=== PATIENT | female | born 1975 | race Caucasian/White ===

== ENCOUNTER 2016-10-20 19:10 | Inpatient (IN) ==
[2016-10-20] MEDS ORDERED: NS 1,000 ML IV ONE (19:18)
--- OUTSIDE RECORDS SUMMARY | 2016-10-20 19:20 | External Medical Summary ---
:1975 [facility] Care Team Providers Name Role Phone Em Camargo Provider Role Unavailable Allergies, Adverse Reactions, Alerts Substance Reaction Event Type morphine Info Not Available Drug Allergy aspirin Info Not Available Drug Allergy codeine Info Not Available Drug Allergy Tegretol Info Not Available Drug Allergy strawberries Info Not Available Non Drug Allergy green mlechor, nutrasweet, peanut, shell fish Info Not Available Non Drug Allergy Problems Problem Type Condition Code Onset Dates Condition Status Assessment Nonintractable migraine, G43.009 Active unspecified migraine type Assessment Pain in left knee M25.562 Active Assessment Osteoarthritis, unspecified M19.90 Active osteoarthritis type, unspecified site Assessment Hypertension I10 Active Assessment Visual impairment in both eyes H54.3 Active Assessment Dysphagia R13.10 Active Assessment Cervicalgia M54.2 Active Assessment S/P cervical spinal fusion Z98.1 Active Problem History of fall Z91.81 Active Assessment Cervical spinal stenosis M48.02 Active Problem Lethargy R53.83 Active Assessment History of fall Z91.81 Active Problem Type 2 diabetes mellitus with E11.65 Active hyperglycemia Problem Menses, irregular N92.6 Active Problem Hypertension I10 Active Problem Chronic pain syndrome G89.4 Active Problem Bipolar disorder, current episode F31.5 Active depressed, severe, with psychotic features Assessment Chronic pain syndrome G89.4 Active Assessment Bipolar disorder, current episode F31.5 Active depressed, severe, with psychotic features Problem Rheumatoid arthritis, involving M06.9 Active unspecified site, unspecified rheumatoid factor presence Assessment Insomnia G47.00 Active Problem Osteoarthritis, unspecified M19.90 Active osteoarthritis type, unspecified site Problem Nonintractable migraine, G43.009 Active unspecified migraine type Problem Insomnia G47.00 Active Problem Pain in left knee M25.562 Active Assessment Menses, irregular N92.6 Active Problem Visual impairment in both eyes H54.3 Active Assessment Rheumatoid arthritis, involving M06.9 Active unspecified site, unspecified rheumatoid factor presence Assessment Type 2 diabetes mellitus with E11.65 Active hyperglycemia Problem S/P cervical spinal fusion Z98.1 Active Problem Cervical spinal stenosis M48.02 Active Problem Dysphagia R13.10 Active Problem Cervicalgia M54.2 Active Medications Medication Code Code Instructions Start End Status Dosage System Date Date metformin NDC 79668 500 mg orally 2 1 tab(s) times a day Xarelto NDC 732157 10 mg orally once a 1 tab(s) day Senna S NDC 69518 50 mg-8.6 mg orally 2 tab(s) once a day (at bedtime) divalproex sodium NDC 29511 500 mg orally BID 1 tab(s) Levemir NDC 90248 100 units/mL 24 u subcutaneously daily Butrans NDC 362293 10 mcg/hr applied 1 PATCH topically once a week Vistaril NDC 965 pamoate 50 mg 1 cap(s) orally tid esomeprazole NDC 20993 40 mg orally once a 1 cap(s) day melatonin NDC 61531 3 mg orally once 1 tab(s) (at bedtime) amlodipine NDC 38987 5 mg orally once a 1 tab(s) day Humalog NDC 6127 100 units/mL 22 u subcutaneously TID with meals Clozaril NDC 420 100 mg orally qhs 1 tab(s) haloperidol NDC 14070 decanoate 100 mg/mL 0,2ml intramuscularly every 4 weeks magnesium oxide NDC 06625 400 mg orally 4 2 tab(s) times per day for constipation Spiriva NDC 03071 18 mcg/cap DPI oral 1 capsule HandiHaler inhalation once inhaled daily daily (2 puffs) Seroquel XR NDC 0 400 mg oral daily 1 gabapentin NDC 94215 600 mg orally 3 1 tab(s) times a day docusate sodium NDC 0 100 mg bid 1 cap acetaminophen NDC 42353 325 mg orally tid 2 tab(s) and every 4 hours prn Procedures Procedure Coding System Code Date Subseq Care-New CC CPT-4 35135 Dec 06, 2015 Vital Signs Date/Time: Dec 06, 2015 Temperature 97.0 F Blood Pressure Diastolic 78 mm Hg Blood Pressure Systolic 141 mm Hg BMI 50.15 Index Height 60 in Weight 256.8 lbs Pulse 72 /min Cardiac Monitoring Heart Rate 18 /min Results No Known Results Summary Purpose eClinicalWorks Submission
--- OUTSIDE RECORDS SUMMARY | 2016-10-20 19:20 | External Medical Summary ---
:1975 Author Organization [employer] Care Team Providers Name Role Phone Em Camargo Provider Role Unavailable Allergies, Adverse Reactions, Alerts Substance Reaction Event Type morphine Info Not Available Drug Allergy aspirin Info Not Available Drug Allergy codeine Info Not Available Drug Allergy Tegretol Info Not Available Drug Allergy strawberries Info Not Available Non Drug Allergy green melchor, nutrasweet, peanut, shell fish Info Not Available Non Drug Allergy Problems Problem Type Condition Code Onset Dates Condition Status Assessment Type 2 diabetes mellitus with E11.65 Active hyperglycemia Problem Dysphagia R13.10 Active Problem Visual impairment in both eyes H54.3 Active Problem Type 2 diabetes mellitus with E11.65 Active hyperglycemia Assessment Hypertension I10 Active Problem Lethargy R53.83 Active Assessment Pain in left knee M25.562 Active Assessment Osteoarthritis, unspecified M19.90 Active osteoarthritis type, unspecified site Problem Hypertension I10 Active Problem S/P cervical spinal fusion Z98.1 Active Problem Cervicalgia M54.2 Active Problem History of fall Z91.81 Active Problem Cervical spinal stenosis M48.02 Active Assessment Cervicalgia M54.2 Active Assessment S/P cervical spinal fusion Z98.1 Active Assessment Visual impairment in both eyes H54.3 Active Assessment Dysphagia R13.10 Active Assessment Insomnia G47.00 Active Assessment Bipolar disorder, current episode F31.5 Active depressed, severe, with psychotic features Assessment Cervical spinal stenosis M48.02 Active Assessment Chronic pain syndrome G89.4 Active Assessment Nonintractable migraine, G43.009 Active unspecified migraine type Assessment History of fall Z91.81 Active Assessment Rheumatoid arthritis, involving M06.9 Active unspecified site, unspecified rheumatoid factor presence Medications Medication Code Code Instructions Start End Status Dosage System Date [place] NDC 60221 5 mg orally once a 1 tab(s) day Tresiba NDC 8165199 100 units/mL SC Nov 09, 30 units Daily 2015 Seroquel XR NDC 0 400 mg oral daily 1 Spiriva NDC 68580 18 mcg/cap DPI 1 capsule HandiHaler oral inhalation inhaled once daily daily (2 puffs) gabapentin NDC 31611 600 mg orally 3 1 tab(s) times a day Clozaril NDC 420 100 mg orally qhs 1 tab(s) esomeprazole NDC 08795 40 mg orally once 1 cap(s) a day Xarelto NDC 723278 10 mg orally once 1 tab(s) a day Vistaril NDC 965 pamoate 50 mg 1 cap(s) orally tid NovoLog NDC 83490 100 units/mL 22 units subcutaneously TID with meals Butrans NDC 461923 10 mcg/hr applied 1 PATCH topically once a week docusate sodium NDC 0 100 mg bid 1 cap melatonin NDC 72460 3 mg orally once 1 tab(s) (at bedtime) magnesium oxide NDC 44519 400 mg orally 4 2 tab(s) times per day for constipation Senna S NDC 79324 50 mg-8.6 mg 2 tab(s) orally once a day (at bedtime) divalproex NDC 83284 500 mg orally BID 1 tab(s) sodium Procedures Procedure Coding System Code Date Subseq Care-New CC CPT-4 60386 Oct 18, 2015 Vital Signs Date/Time: Oct 18, 2015 Temperature 98.0 F Blood Pressure Diastolic 70 mm Hg Blood Pressure Systolic 119 mm Hg Cardiac Monitoring Heart Rate 18 /min Pulse 85 /min Results No Known Results Summary Purpose eClinicalWorks Submission
--- OUTSIDE RECORDS SUMMARY | 2016-10-20 19:20 | External Medical Summary | Continuity Of Care Document ---
:1975 Author Organization [facility] Address [address] [place] [address] Phone Care Team Providers Name Role Phone BETO MARTINS MD Unavailable UNASSIGNED, ED PHYSICIAN Unavailable Unavailable LISY SAUCEDA DO Attending Provider Results Results No results recorded. Allergies and Adverse Reactions Allergies and Adverse Reactions Patient Unit Number: [id number] Agent Type Reaction Severity Status IODINATED CONTRAST MEDIA - IV DYE Drug Allergy Unknown Severe Active PENICILLINS Drug Allergy Unknown Severe Active PEANUT Drug Allergy Unknown Severe Active MORPHINE Drug Allergy ITCH Mild Active CODEINE Drug Allergy Unknown Severe Active HYDROCODONE Drug Allergy Unknown Unknown Active ASPIRIN Drug Allergy Unknown Severe Active CARBAMAZEPINE Drug Allergy Unknown Severe Active PREDNISONE Drug Allergy Unknown Unknown Active IBUPROFEN Drug Allergy Unknown Severe Active ASPARTAME Drug Allergy Unknown Severe Active TRAMADOL Drug Allergy Unknown Unknown Active METAPROTERENOL Drug Allergy Unknown Unknown Active METFORMIN Drug Allergy Unknown Moderate Active OXCARBAZEPINE Drug Allergy RASH, DIFFICULTY BREATHING Severe Active LEVOFLOXACIN Drug Allergy Unknown Unknown Active GREEN BEANS Allergy Unknown Unknown Active KIWI Allergy Unknown Unknown Active NUTRI SWEET Allergy N/V, ITCHING Mild Active STRAWBERRIES Allergy Unknown Unknown Active Problem List Problem List Visit/Account #[id number] (January 07, 2015 10:32am - January 07, 2015 2: 22pm) Acute Problems: Code/Condition Comments Documented Start Documented Code(s) Date Resolved Date Contusion of shoulder, left ICD10: S40.012A Contusion of left shoulder ICD9: 923.00 Contusion of left shoulder SNOMED: 59821050 Contusion of left shoulder Patient Unit Number: [id number] Chronic Problems: Code/Condition Comments Documented Start Date Documented Resolved Code(s) Date Diabetes ICD9: 250.0 Diabetes SNOMED: 13329160 Diabetes Plan of Care Plan Of Care Visit/Account #[id number] (January 07, 2015 10:32am - January 07, 2015 2: 22pm) Patient Instructions Ice to the area of injury 4 times a day, 20 minutes each. Take medication as needed for pain. Keep the area of injury elevated as much as possible. Return if new symptoms, worsening symptoms or additional concerns. Followup with primary care physician in 2-3 days. If continued symptoms may require additional outpatient imaging and/or physical therapy. Vital Signs Vital Signs Visit/Account #[id number] (January 07, 2015 10:32am - January 07, 2015 2: 22pm) Sign First Result Last Result Code(s) Temperature in Fahrenheit Temperature (Fahrenheit): 98.1 [degF] On January 07, 2015 10:31am Temperature (Fahrenheit): 97.8 [degF] On January 07, 2015 2: 17pm 8310-5 Body Temperature Functional Status Functional and Cognitive Status No Functional Status Data Medications Inpatient/Ordered Medications - Medications administered during hospital visit Visit/Account #[id number] (January 07, 2015 10:32am - January 07, 2015 2: 22pm) Medication Route Sig/Schedule Precondition/Indication Comments/ Instructions Codes TORADOL INJ(KETOROLAC TROMETHAMINE) 60 MG/2 ML VIAL INTRAMUSC NOW Ketorolac Tromethamine 30 MG/ML Injectable Solution (RxNorm): 683428 Dose: 2 ML TORADOL INJ (KETOROLAC TROMETHAMINE) NDC: 68822610652 Discharge Medications - Medications that patient should continue to take. Review with physician Visit/Account #[id number] (January 07, 2015 10:32am - January 07, 2015 2: 22pm) Medication Route Sig/Schedule Precondition/Indication Comments/ Instructions Codes Toradol(KETOROLAC TROMETHAMINE) 10 MG TAB ORAL EVERY 6 HOURS PAIN Ketorolac Tromethamine 10 MG Oral Tablet (RxNorm): 745910 Dose: 1 TAB Toradol (KETOROLAC TROMETHAMINE) NDC: 04008721778 Norflex(ORPHENADRINE CITRATE) 100 MG TAB ORAL AT BEDTIME 12 HR Orphenadrine Citrate 100 MG Extended Release Oral Tablet (RxNorm): 781461 Dose: 100 MG Norflex (ORPHENADRINE CITRATE) NDC: 39758828211 History Of Encounters Encounters Visit/Account #[id number] (January 07, 2015 10:32am - January 07, 2015 2: 22pm) Account Physican Of Reason For Visit Diagnosis Start Date/Time Stop Date/ Time Status Record Visit ER LISY SAUCEDA, DO FALL M54.2: CERVICALGIA ICD10 Jan 07, 2015 10:32am Jan 07, 2015 2:22pm History of Procedures Procedure List No procedures recorded. Discharge Instructions Discharge Instructions Visit/Account #[id number] (January 07, 2015 10:32am - January 07, 2015 2: 22pm) DISCHARGE INSTRUCTIONS Physician Documentation Social History Social History No Social History Data. Immunizations Immunizations Patient Unit Number: [id number] Immunizations No immunizations recorded.
--- OUTSIDE RECORDS SUMMARY | 2016-10-20 19:21 | External Medical Summary | Referral Summary ---
:1975 Author Organization [facility] Address [address] [place] [address] Care Team Providers Name Role Phone No PCP, Pt States Primary Care Physician Encounter [facility] [id number] Date(s): 06/04/15 - 06/04/[address] [address] Discharge Diagnosis: Esophageal foreign body Discharge Disposition: 01-Home or Self Care Attending Physician: Garrett Costa MD Admitting Physician: Garrett Costa MD Vital Signs Most recent to oldest [Reference Range]: 1 Temperature Oral [35.8-37.3 degC] 37.0 degC (06/04/15 4:47 PM) Peripheral Pulse Rate [60-100 bpm] 105 bpm *HI* (06/04/15 6:25 PM) Heart Rate Monitored [60-100 bpm] 106 bpm *HI* (06/04/15 6:00 PM) Respiratory Rate [14-20 br/min] 16 br/min (06/04/15 6:25 PM) Blood Pressure [90-140/60-90 mmHg] 151/98 mmHg *HI* (06/04/15 6:25 PM) Mean Arterial Pressure, Cuff 110 mmHg (06/04/15 6:00 PM) SpO2 98 % (06/04/15 6:25 PM) Problem List Condition Effective Dates Status Health Status Informant Bipolar 1 disorder(Confirmed) Active patient Depression(Confirmed) Active patient DM (diabetes mellitus)(Confirmed) Active patient HTN (hypertension)(Confirmed) Active patient RA (rheumatoid arthritis)(Confirmed) Active patient Allergies, Adverse Reactions, Alerts Substance Reaction Severity Status aspirin Active penicillin Active TEGretol Active Medications Ativan 0 Refill(s) Start Date: 06/02/15 Status: OrderedSEROquel Oral, 0 Refill(s) Start Date: 06/02/15 Status: OrderedUnisom mg, Oral, Bedtime (once a day), 0 Refill(s) Start Date: 06/02/15 Status: Ordered Results Hematology Most recent to oldest [Reference Range]: 1 WBC [4.8-10.8 10*3/uL] 10.3 10*3/uL (06/04/15 5:05 PM) RBC [4.00-5.20] 4.67 (06/04/15 5:05 PM) Hgb [12.0-16.0 gm/dL] 14.0 gm/dL (06/04/15 5:05 PM) Hct [37.0-47.0 %] 41.0 % (06/04/15 5:05 PM) MCV [82.0-99.0 fL] 87.8 fL (06/04/15 5:05 PM) MCH [27.0-32.0 pg] 30.0 pg (06/04/15 5:05 PM) MCHC [32.0-36.0 gm/dL] 34.1 gm/dL (06/04/15 5:05 PM) RDW [11.5-14.5 %] 14.7 % *HI* (06/04/15 5:05 PM) Platelet [150-400 10*3/uL] 281 10*3/uL (06/04/15 5:05 PM) MPV [9.4-12.4 fL] 11.4 fL (06/04/15 5:05 PM) Immature Granulocytes [0.0-1.0 %] 0.2 % (06/04/15 5:05 PM) Neutrophils [51-75 %] 60 % (06/04/15 5:05 PM) Lymphocytes [20-46 %] 30 % (06/04/15 5:05 PM) Monocytes [4-11 %] 6 % (06/04/15 5:05 PM) Eosinophils [0-4 %] 3 % (06/04/15 5:05 PM) Basophils [0-2 %] 0 % (06/04/15 5:05 PM) Neutro Absolute [1.90-7.00 10*3] 6.22 10*3 (06/04/15 5:05 PM) Lymph Absolute [0.80-3.30 10*3] 3.12 10*3 (06/04/15 5:05 PM) Citrus Absolute [0.30-1.00 10*3] 0.64 10*3 (06/04/15 5:05 PM) Eos Absolute [0.00-0.50 10*3] 0.26 10*3 (06/04/15 5:05 PM) Baso Absolute [0.00-0.20 10*3] 0.04 10*3 (06/04/15 5:05 PM) Nucleated RBC Automated [0 /100 WBC] 0.0 /100 WBC (06/04/15 5:05 PM) Chemistry Most recent to oldest [Reference Range]: 1 Sodium Lvl [136-144 mEq/L] 134 mEq/L *LOW* (06/04/15 5:05 PM) Potassium Lvl [3.6-5.1 mEq/L] 3.9 mEq/L (06/04/15 5:05 PM) Chloride [99-109 mEq/L] 99 mEq/L (06/04/15 5:05 PM) CO2 [22-32 mEq/L] 22 mEq/L (06/04/15 5:05 PM) AGAP [3-20] 13 (06/04/15 5:05 PM) BUN [4-20 mg/dL] 11 mg/dL (06/04/15 5:05 PM) Glucose Lvl [70-100 mg/dL] 397 mg/dL *HI* (06/04/15 5:05 PM) Creatinine Lvl [0.44-1.03 mg/dL] 0.97 mg/dL (06/04/15 5:05 PM) eGFR [>60] >60 1 (06/04/15 5:05 PM) Calcium Lvl [8.6-10.0 mg/dL] 9.2 mg/dL (06/04/15 5:05 PM) Albumin Lvl [3.5-4.8 gm/dL] 3.7 gm/dL (06/04/15 5:05 PM) Total Protein [6.1-7.9 gm/dL] 8.6 gm/dL *HI* (06/04/15 5:05 PM) Globulin [1.9-4.3 gm/dL] 4.9 gm/dL *HI* (06/04/15 5:05 PM) ALT [14-54 U/L] 30 U/L (06/04/15 5:05 PM) AST [15-41 U/L] 40 U/L (06/04/15 5:05 PM) Alk Phos [26-104 U/L] 78 U/L (06/04/15 5:05 PM) Bili Total [0.2-1.2 mg/dL] 0.6 mg/dL 2 (06/04/15 5:05 PM) 1Result Comment: Multiply eGFR results by 1.21 for race.2Result Comment: Naproxen, specifically the metabolite O-desmethylnaproxen, may cause spurious elevation in Total Bilirubin levels. Immunizations No data available for this section Procedures No data available for this section Social History Social History Type Response Smoking Status Never smoker Assessment and Plan No data available for this section
--- OUTSIDE RECORDS SUMMARY | 2016-10-20 19:21 | External Medical Summary | Referral Summary ---
:1975 Author Organization [facility] Address [address] [place] [address] Care Team Providers Name Role Phone No PCP, Pt States Primary Care Physician Encounter [facility] [id number] Date(s): 06/02/15 - 06/03/15 [id number] [place] [address] [phone] Discharge Diagnosis: Hyperglycemia Discharge Disposition: 01-Home or Self Care Attending Physician: Dante Holbrook MD Admitting Physician: Dante Holbrook MD Vital Signs Most recent to oldest [Reference Range]: 1 Peripheral Pulse Rate [60-100 bpm] 127 bpm *HI* (06/02/15 10:07 PM) Heart Rate Monitored [60-100 bpm] 106 bpm *HI* (06/03/15 1:15 AM) Respiratory Rate [14-20 br/min] 18 br/min (06/02/15 11:56 PM) Blood Pressure [90-140/60-90 mmHg] 135/87 mmHg (06/03/15 1:15 AM) Mean Arterial Pressure, Cuff 103 mmHg (06/03/15 1:15 AM) SpO2 93 % (06/02/15 11:56 PM) Problem List Condition Effective Dates Status [...] Refill(s) Start Date: 06/02/15 Status: Ordered Results Chemistry Most recent to oldest [Reference Range]: 1 Sodium Venous [136-144 mEq/L] 135 mEq/L *LOW* (06/02/15 11:06 PM) Potassium Venous [3.6-5.1 mEq/L] 3.7 mEq/L 1 (06/02/15 11:06 PM) Calcium Ionized Venous [1.19-1.41 mmol/L] 1.05 mmol/L *LOW* (06/02/15 11:06 PM) Total CO2 Venous [25-29 mEq/L] 23 mEq/L *LOW* (06/02/15 11:06 PM) HGB Venous NPT [12.0-16.0 gm/dL] 13.6 gm/dL (06/02/15 11:06 PM) HCT Venous [37.0-47.0 %] 40.0 % (06/02/15 11:06 PM) Glucose Venous [70-100 mg/dL] 443 mg/dL *HI* (06/02/15 11:06 PM) BUN Venous [4-20] 12 (06/02/15 11:06 PM) Creatinine Venous [0.4-1.0 mg/dL] 1.3 mg/dL *HI* (06/02/15 11:06 PM) Venous CL [99-109 mEq/L] 97 mEq/L *LOW* (06/02/15 11:06 PM) Anion Gap, Brendon [3-20] 15 (06/02/15 11:06 PM) Blood Glucose, Capillary [70-100 mg/dL] 346 mg/dL *HI* (06/03/15 1:18 AM) 1Result Comment: This test was performed on a whole blood specimen. The presence or absence of hemolysis cannot be assessed. Hemolysis can falsely elevate potassium levels. Normals are for venous specimens only.Urinalysis Most recent to oldest [Reference Range]: 1 UA Color Yellow (06/03/15 12:35 AM) UA Appear Sl Cloudy (06/03/15 12:35 AM) UA pH [5.0-8.0] 6.0 (06/03/15 12:35 AM) UA Leuk Est [Negative] Negative (06/03/15 12:35 AM) UA Nitrite [Negative] Negative (06/03/15 12:35 AM) UA Protein [Negative] Pos 1+ *ABN* (06/03/15 12:35 AM) UA Glucose [Negative] Pos 3+ *ABN* (06/03/15 12:35 AM) UA Ketones [Negative] Trace *ABN* (06/03/15 12:35 AM) UA Urobilinogen [<1.0] Negative (06/03/15 12:35 AM) UA Bili [Negative] Negative (06/03/15 12:35 AM) UA Blood [Negative] Pos 1+ *ABN* (06/03/15 12:35 AM) UA Spec Grav [1.003-1.030] 1.015 (06/03/15 12:35 AM) Type Clean Catch (06/03/15 12:35 AM) UA WBC [0-4] 5-10 *ABN* (06/03/15 12:35 AM) UA RBC [0-2] 2-5 (06/03/15 12:35 AM) Epithelial Cells 2-5 (06/03/15 12:35 AM) UA Bacteria Rare (06/03/15 12:35 AM) UA Hyal Cast [0-3] 1-3 (06/03/15 12:35 AM) UA Mucous Present (06/03/15 12:35 AM) Immunizations No data available for this section Procedures No data available for this section Social History Social History Type Response Smoking Status Never smoker Assessment and Plan No data available for this section
--- OUTSIDE RECORDS SUMMARY | 2016-10-20 19:21 | External Medical Summary ---
:1975 Author [facility] Care Team Providers Name Role Phone Em [...] Condition Code Onset Dates Condition Status Assessment Other viral agents as the cause of B97.89 Active diseases classified elsewhere Assessment Osteoarthritis, unspecified M19.90 Active osteoarthritis type, unspecified site Assessment Hypertension I10 Active Problem History of fall Z91.81 Active Assessment Visual impairment in both eyes H54.3 Active Problem Lethargy R53.83 Active Assessment Bipolar disorder, current episode F31.5 Active depressed, severe, with psychotic features Problem Type 2 diabetes mellitus with E11.65 Active hyperglycemia Problem Menses, irregular N92.6 Active Problem Hypertension I10 Active Problem Chronic pain syndrome G89.4 Active Problem Bipolar disorder, current episode F31.5 Active depressed, severe, with psychotic features Assessment Type 2 diabetes mellitus with E11.65 Active hyperglycemia Assessment Rheumatoid arthritis, involving M06.9 Active unspecified site, unspecified rheumatoid factor presence Problem Rheumatoid arthritis, involving M06.9 Active unspecified site, unspecified rheumatoid factor presence Assessment Chronic pain syndrome G89.4 Active Problem Osteoarthritis, unspecified M19.90 Active osteoarthritis type, unspecified site Problem Nonintractable migraine, G43.009 Active unspecified migraine type Problem Insomnia G47.00 Active Problem Pain in left knee M25.562 Active Assessment Sore throat J02.9 Active Problem Visual impairment in both eyes H54.3 Active Assessment Acute upper respiratory infection, J06.9 Active unspecified Assessment Chest pain, unspecified type R07.9 Active Problem S/P cervical spinal fusion Z98.1 Active Problem Cervical spinal stenosis M48.02 Active Problem Dysphagia R13.10 Active Problem Cervicalgia M54.2 Active Medications Medication Code Code Instructions Start End Status Dosage System Date Date amlodipine NDC 32359 5 mg orally once a 1 tab(s) day esomeprazole NDC 50125 40 mg orally once a 1 cap(s) day Clozaril NDC 420 100 mg orally qhs 1 tab(s) Seroquel XR NDC 0 400 mg oral daily 1 divalproex sodium NDC 16310 500 mg orally BID 1 tab(s) Vistaril NDC 965 pamoate 50 mg 1 cap(s) orally tid Butrans NDC 580292 10 mcg/hr applied 1 PATCH topically once a week Senna S NDC 20152 50 mg-8.6 mg orally 2 tab(s) once a day (at bedtime) Xarelto NDC 903513 10 mg orally once a 1 tab(s) day magnesium oxide NDC 03955 400 mg orally 4 2 tab(s) times per day for constipation gabapentin NDC 78281 600 mg orally 3 1 tab(s) times a day Levemir NDC 63110 100 units/mL 24 u subcutaneously daily metformin NDC 77733 500 mg orally 2 1 tab(s) times a day melatonin NDC 42430 3 mg orally once 1 tab(s) (at bedtime) acetaminophen NDC 83508 325 mg orally tid 2 tab(s) and every 4 hours prn haloperidol NDC 64197 decanoate 100 mg/mL 0,2ml intramuscularly every 4 weeks Spiriva NDC 59688 18 mcg/cap DPI oral 1 capsule HandiHaler inhalation once inhaled daily daily (2 puffs) docusate sodium NDC 0 100 mg bid 1 cap Humalog NDC 6127 100 units/mL 22 u subcutaneously TID with meals Procedures Procedure Coding System Code Date Subseq Care-New CC CPT-4 12304 Dec 27, 2015 Vital Signs Date/Time: Dec 27, 2015 Temperature 97.2 F Blood Pressure Diastolic 77 mm Hg Blood Pressure Systolic 115 mm Hg BMI 50.15 Index Height 60 in Weight 256.8 lbs Pulse 105 /min Cardiac Monitoring Heart Rate 22 /min Results No Known Results Summary Purpose eClinicalWorks Submission
--- OUTSIDE RECORDS SUMMARY | 2016-10-20 19:21 | External Medical Summary | Continuity Of Care Document ---
:1975 Author Organization [facility] Address [address] [place] [address] Phone Care Team Providers Name Role Phone UNASSIGNED, ED PHYSICIAN Unavailable Unavailable KE ESTRADA MD Attending Provider HINA HENRY MD Consulting Provider NON STAFF, PROVIDER Unavailable Unavailable Results Lab Results Visit/Account #[id number] (December 02, 2014 9:04am - December 06, 2014 7:20pm) Test Result Date/Time POCGL POCGL(70-110 MG/DL) 276 MG/DL December 02, 2014 5:16pm 106 MG/DL December 02, 2014 9:15pm 234 MG/DL December 03, 2014 5:53am 137 MG/DL December 03, 2014 11:57am 112 MG/DL December 03, 2014 5:07pm 87 MG/DL December 03, 2014 9:22pm 148 MG/DL December 04, 2014 5:48am 133 MG/DL December 04, 2014 10:55am 123 MG/DL December 04, 2014 4:59pm 132 MG/DL December 04, 2014 9:38pm 81 MG/DL December 05, 2014 5:57am 160 MG/DL December 05, 2014 10:45am 101 MG/DL December 05, 2014 4:43pm 112 MG/DL December 05, 2014 8:11pm 81 MG/DL December 06, 2014 5:06am 123 MG/DL December 06, 2014 10:49am 90 MG/DL December 06, 2014 5:28pm 54035-4: COMPLETE BLOOD COUNT WITH DIFF WHITE BLOOD COUNT(4.0-11.0 10E3/UL) 5.9 10E3/UL December 02, 2014 9:20am 5.9 10E3/UL December 03, 2014 6:58am 7.4 10E3/UL December 05, 2014 8:35am 7.5 10E3/UL December 06, 2014 8:16am RED BLOOD COUNT(4.00-5.20 10E6/UL) 4.35 10E6/UL December 02, 2014 9:20am 3.65 10E6/UL December 03, 2014 6:58am 3.94 10E6/UL December 05, 2014 8:35am 3.73 10E6/UL December 06, 2014 8:16am HEMOGLOBIN(12.0-16.0 G/DL) 12.4 G/DL December 02, 2014 9:20am 10.5 G/DL December 03, 2014 6:58am 11.2 G/DL December 05, 2014 8:35am 10.9 G/DL December 06, 2014 8:16am HEMATOCRIT(36.0-46.0 %) 36.6 % December 02, 2014 9:20am 32.3 % December 03, 2014 6:58am 34.6 % December 05, 2014 8:35am 33.3 % December 06, 2014 8:16am MEAN CORPUSCULAR VOLUME(82.0-100.0 FL) 84.1 FL December 02, 2014 9:20am 88.5 FL December 03, 2014 6:58am 87.8 FL December 05, 2014 8:35am 89.3 FL December 06, 2014 8:16am 11123-7: MEAN CORPUSCULAR HEMOGLOBIN(26.0-34.0 PG) 28.5 PG December 02, 2014 9 :20am 28.8 PG December 03, 2014 6:58am 28.4 PG December 05, 2014 8:35am 29.2 PG December 06, 2014 8:16am MEAN CORPUSCULAR HGB CONC(31.5-36.5 G/DL) 33.9 G/DL December 02, 2014 9:20am 32.5 G/DL December 03, 2014 6:58am 32.4 G/DL December 05, 2014 8:35am 32.7 G/DL December 06, 2014 8:16am RED CELL DISTRIBUTION WIDTH(11.5-14.5 %) 17.4 % December 02, 2014 9:20am 18.4 % December 03, 2014 6:58am 18.2 % December 05, 2014 8:35am 18.4 % December 06, 2014 8:16am 777-3: PLATELET COUNT(150-450 10E3/UL) 176 10E3/UL December 02, 2014 9:20am 147 10E3/UL December 03, 2014 6:58am 158 10E3/UL December 05, 2014 8:35am 165 10E3/UL December 06, 2014 8:16am MEAN PLATELET VOLUME(8.2-12.4 FL) 10.4 FL December 02, 2014 9:20am 10.9 FL December 03, 2014 6:58am 10.3 FL December 05, 2014 8:35am 10.2 FL December 06, 2014 8:16am 770-8: NEUTROPHILS % (AUTO)(40-70 %) 53 % December 02, 2014 9:20am 59 % December 03, 2014 6:58am 57 % December 05, 2014 8:35am 54 % December 06, 2014 8:16am LYMPHOCYTES % (AUTO)(15-45 %) 33 % December 02, 2014 9:20am 27 % December 03, 2014 6:58am 29 % December 05, 2014 8:35am 32 % December 06, 2014 8:16am 5905-5: MONOCYTES % (AUTO)(2-10 %) 8 % December 02, 2014 9:20am 8 % December 03, 2014 6:58am 7 % December 05, 2014 8:35am 8 % December 06, 2014 8:16am 713-8: EOSINOPHILS % (AUTO)(0-6 %) 4 % December 02, 2014 9:20am 5 % December 03, 2014 6:58am 6 % December 05, 2014 8:35am 5 % December 06, 2014 8:16am 706-2: BASOPHILS % (AUTO)(0-1 %) 1 % December 02, 2014 9:20am 1 % December 03, 2014 6:58am 0 % December 05, 2014 8:35am 1 % December 06, 2014 8:16am 79719-5: IMMATURE GRANS % (AUTO)(0-0 %) 1 % December 02, 2014 9:20am 1 % December 03, 2014 6:58am 0 % December 05, 2014 8:35am 1 % December 06, 2014 8:16am NUCLEATED RBCS (AUTO)(0-0 %) 0 % December 02, 2014 9:20am 0 % December 03, 2014 6:58am 0 % December 05, 2014 8:35am 0 % December 06, 2014 8:16am 751-8: NEUTROPHILS # (AUTO)(2.5-7.5 10E3/UL) 3.1 10E3/UL December 02, 2014 9: 20am 3.5 10E3/UL December 03, 2014 6:58am 4.2 10E3/UL December 05, 2014 8:35am 4.0 10E3/UL December 06, 2014 8:16am 06828-4: LYMPHOCYTES # (AUTO)(1.0-4.0 10E3/UL) 2.0 10E3/UL December 02, 2014 9 :20am 1.6 10E3/UL December 03, 2014 6:58am 2.2 10E3/UL December 05, 2014 8:35am 2.4 10E3/UL December 06, 2014 8:16am 742-7: MONOCYTES # (AUTO)(0.2-0.8 10E3/UL) 0.5 10E3/UL December 02, 2014 9: 20am 0.5 10E3/UL December 03, 2014 6:58am 0.5 10E3/UL December 05, 2014 8:35am 0.6 10E3/UL December 06, 2014 8:16am 711-2: EOSINOPHILS # (AUTO)(0.0-0.4 10E3/UL) 0.3 10E3/UL December 02, 2014 9: 20am 0.3 10E3/UL December 03, 2014 6:58am 0.4 10E3/UL December 05, 2014 8:35am 0.4 10E3/UL December 06, 2014 8:16am 704-7: BASOPHILS # (AUTO)(0.0-0.2 10E3/UL) 0.0 10E3/UL December 02, 2014 9: 20am 0.0 10E3/UL December 03, 2014 6:58am 0.0 10E3/UL December 05, 2014 8:35am 0.0 10E3/UL December 06, 2014 8:16am IMMATURE GRANS # (AUTO)(0.0-0.0 10E3/UL) 0.1 10E3/UL December 02, 2014 9:20am 0.0 10E3/UL December 03, 2014 6:58am 0.0 10E3/UL December 05, 2014 8:35am 0.1 10E3/UL December 06, 2014 8:16am DIFF TYPE AUTOMATED December 02, 2014 9:20am AUTOMATED December 03, 2014 6:58am AUTOMATED December 05, 2014 8:35am AUTOMATED December 06, 2014 8:16am 69100-4: PROTHROMBIN TIME WITH INR PROTHROMBIN TIME(12.1-14.0 SEC) 13.6 SEC December 02, 2014 9:20am 53622-9: INR 1.03 December 02, 2014 9:20am Result Comments: INR reference interval applies to patients on anticoagulant therapy. Suggested INR therapeutic range for oral anticoagulant therapy: (Stabilized anticoagulated patients) Routine Therapy: 2.0 to 3.0 Recurrent Myocardial Infarction: 2.5 to 3.5 Mechanical Prosthetic Valves: 2.5 to 3.5 12115-6: URINALYSIS 5778-6: COLOR,URINE YELLOW December 02, 2014 10:15am 52286-5: CLARITY,URINE SL CLOUDY December 02, 2014 10:15am GLUCOSE, URINE(NEGATIVE MG/DL) Greater than or equal to 1000 MG/DL November 10:15am URINE BILIRUBIN(NEGATIVE) NEGATIVE December 02, 2014 10:15am 78212-4: KETONES,URINE(NEGATIVE MG/DL) 15 MG/DL December 02, 2014 10:15am 2965-2: URINE SPECIFIC GRAVITY(1.001-1.035) 1.015 December 02, 2014 10:15am 15069-2: URINE BLOOD(NEGATIVE) NEGATIVE December 02, 2014 10:15am 2756-5: URINE PH(5.0-9.0) 6.5 December 02, 2014 10:15am URINE PROTEIN(Less than 20 MG/DL) NEGATIVE MG/DL December 02, 2014 10:15am URINE UROBILINOGEN(0.2-1.0 MG/DL) 0.2 MG/DL December 02, 2014 10:15am URINE NITRITE(NEGATIVE) NEGATIVE December 02, 2014 10:15am 5799-2: LEUKOCYTE ESTERASE ,URINE(NEGATIVE) NEGATIVE December 02, 2014 10:15am URINE MICROSCOPIC REQUIRED NO December 02, 2014 10:15am 07512-6: COMPLETE METABOLIC PROFILE GLUCOSE(70-110 MG/DL) 290 MG/DL December 02, 2014 9:20am 253 MG/DL December 03, 2014 6:58am BLOOD UREA NITROGEN(6-20 MG/DL) 11 MG/DL December 02, 2014 9:20am 18 MG/DL December 03, 2014 6:58am CREATININE(0.50-1.20 MG/DL) 0.65 MG/DL December 02, 2014 9:20am 0.94 MG/DL December 03, 2014 6:58am 94364-6: EST GLOMERULAR FILTRATION RATE(Greater than or equal to 60) Greater than or equal to 60 December 02, 2014 9:20am Result Comments: If the patient is of -[place] descent/extraction multiply the eGFR value by 1.212 to obtain the actual eGFR. >=60 mg/dL Normal 30-59 mg/dL Moderate Kidney Disease 15-29 mg/dL Severe Kidney Disease <15 mg/dL Kidney Failure Greater than or equal to 60 December 03, 2014 6:58am Result Comments: If the patient is of -[place] descent/extraction multiply the eGFR value by 1.212 to obtain the actual eGFR. >=60 mg/dL Normal 30-59 mg/dL Moderate Kidney Disease 15-29 mg/dL Severe Kidney Disease <15 mg/dL Kidney Failure BUN CREATININE RATIO(10.0-20.0 RATIO) 17.0 RATIO December 02, 2014 9:20am 19.0 RATIO December 03, 2014 6:58am SODIUM(135-145 MMOL/L) 134 MMOL/L December 02, 2014 9:20am 137 MMOL/L December 03, 2014 6:58am POTASSIUM(3.6-5.0 MMOL/L) 3.4 MMOL/L December 02, 2014 9:20am 3.4 MMOL/L December 03, 2014 6:58am CHLORIDE(101-111 MMOL/L) 96 MMOL/L December 02, 2014 9:20am 101 MMOL/L December 03, 2014 6:58am 2028-9: CO2(21-31 MMOL/L) 25.0 MMOL/L December 02, 2014 9:20am 27.0 MMOL/L December 03, 2014 6:58am 40956-9: ANION GAP(8-18) December 02, 2014 9:20am 12 December 03, 2014 6:58am OSMO CALCULATED(270.0-290.0) 278.3 December 02, 2014 9:20am 284.3 December 03, 2014 6:58am CALCIUM(8.5-10.5 MG/DL) 9.4 MG/DL December 02, 2014 9:20am 8.0 MG/DL December 03, 2014 6:58am BILIRUBIN,TOTAL(0.1-1.2 MG/DL) 0.6 MG/DL December 02, 2014 9:20am 0.7 MG/DL December 03, 2014 6:58am ALKALINE PHOSPHATASE(42-121 IU/L) 69 IU/L December 02, 2014 9:20am 56 IU/L December 03, 2014 6:58am ASPARTATE AMINO TRANSFERASE(10-42 IU/L) 40 IU/L December 02, 2014 9:20am 34 IU/L December 03, 2014 6:58am ALANINE AMINOTRANSFERASE(10-60 IU/L) 34 IU/L December 02, 2014 9:20am 28 IU/L December 03, 2014 6:58am 26519-3: TOTAL PROTEIN(6.4-8.2 G/DL) 7.0 G/DL December 02, 2014 9:20am 6.4 G/DL December 03, 2014 6:58am ALBUMIN(3.5-5.5 G/DL) 3.9 G/DL December 02, 2014 9:20am 3.0 G/DL December 03, 2014 6:58am 2336-6: GLOBULIN(2.4-3.6) 3.1 December 02, 2014 9:20am 3.4 December 03, 2014 6:58am ALBUMIN/GLOBULIN RATIO(0.9-1.8 RATIO) 1.3 RATIO December 02, 2014 9:20am 0.9 RATIO December 03, 2014 6:58am BASIC METABOLIC PANEL GLUCOSE(70-110 MG/DL) 92 MG/DL December 05, 2014 8:35am 78 MG/DL December 06, 2014 8:17am BLOOD UREA NITROGEN(6-20 MG/DL) 11 MG/DL December 05, 2014 8:35am 18 MG/DL December 06, 2014 8:17am CREATININE(0.50-1.20 MG/DL) 0.57 MG/DL December 05, 2014 8:35am 0.60 MG/DL December 06, 2014 8:17am 15072-4: EST GLOMERULAR FILTRATION RATE(Greater than or equal to 60) Greater than or equal to 60 December 05, 2014 8:35am Result Comments: If the patient is of -[place] descent/extraction multiply the eGFR value by 1.212 to obtain the actual eGFR. >=60 mg/dL Normal 30-59 mg/dL Moderate Kidney Disease 15-29 mg/dL Severe Kidney Disease <15 mg/dL Kidney Failure Greater than or equal to 60 December 06, 2014 8:17am Result Comments: If the patient is of -[place] descent/extraction multiply the eGFR value by 1.212 to obtain the actual eGFR. >=60 mg/dL Normal 30-59 mg/dL Moderate Kidney Disease 15-29 mg/dL Severe Kidney Disease <15 mg/dL Kidney Failure BUN CREATININE RATIO(10.0-20.0 RATIO) 19.0 RATIO December 05, 2014 8:35am 30.0 RATIO December 06, 2014 8:17am SODIUM(135-145 MMOL/L) 136 MMOL/L December 05, 2014 8:35am 139 MMOL/L December 06, 2014 8:17am POTASSIUM(3.6-5.0 MMOL/L) 4.0 MMOL/L December 05, 2014 8:35am 4.5 MMOL/L December 06, 2014 8:17am CHLORIDE(101-111 MMOL/L) 102 MMOL/L December 05, 2014 8:35am 101 MMOL/L December 06, 2014 8:17am 8-9: CO2(21-31 MMOL/L) 29.0 MMOL/L December 05, 2014 8:35am 33.0 MMOL/L December 06, 2014 8:17am 95358-5: ANION GAP(8-18) 9 December 05, 2014 8:35am 10 December 06, 2014 8:17am OSMO CALCULATED(270.0-290.0) 271.0 December 05, 2014 8:35am 278.3 December 06, 2014 8:17am CALCIUM(8.5-10.5 MG/DL) 8.7 MG/DL December 05, 2014 8:35am 8.7 MG/DL December 06, 2014 8:17am 92598-5: MAGNESIUM 21303-3: MAGNESIUM(1.8-2.5 MG/DL) 1.4 MG/DL December 03, 2014 6:58am 28782-3: LIPID PROFILE 58412-4: TRIGLYCERIDES(35-160 MG/DL) 261 MG/DL December 02, 2014 3:35pm CHOLESTEROL(0-200 MG/DL) 141 MG/DL December 02, 2014 3:35pm LDL CHOLESTEROL,DIRECT(0-99 MG/DL) 69 MG/DL December 02, 2014 3:35pm VLDL CHOLESTEROL(1-53 MG/DL) 52 MG/DL December 02, 2014 3:35pm HDL CHOLESTEROL(35-85 MG/DL) 42 MG/DL December 02, 2014 3:35pm CHOL/HDL RATIO(0.0-4.4 RATIO) 3.4 RATIO December 02, 2014 3:35pm C REACTIVE PROTEIN C REACTIVE PROTEIN(5.0-10.0 MG/L) 6.3 MG/L December 02, 2014 9:20am LACTIC ACID LACTIC ACID(0.5-2.0 MMOL/L) 4.8 MMOL/L December 02, 2014 9:20am 1.0 MMOL/L December 04, 2014 3:09pm FREE T4 FREE T4(0.58-1.64 NG/DL) 0.69 NG/DL December 03, 2014 6:58am THYROID STIMULATING HORMONE THYROID STIMULATING HORMONE(0.340-5.600 uIU/ML) 7.650 uIU/ML December 03, 2014 6:58am 38094-5: GLYCOHEMOGLOBIN A1C 4548-4: %A1C(4.6-6.2 %) 9.9 % December 03, 2014 6:58am 4086-5: VALPROIC ACID (DEPAKOTE) 4086-5: VALPROIC ACID (DEPAKOTE)(50.0-100.0 UG/ML) 34.8 UG/ML December 02, 2014 3:35pm Microbiology Results Visit/Account #[id number] (December 02, 2014 9:04am - December 06, 2014 7:20pm) Procedure Result WOUND CULTURE WOUND CULTURE Result Instance On December 02, 2014 3:33pm Source: LEG Organism: [id number] (SNOMED_CT) MIXED SKIN LILLIAN COLONY COUNT TRACE AMOUNT 81618-7: MRSA SCREEN FOR INFEC CONTROL 15375-6: MRSA SCREEN FOR INFEC CONTROL Result Instance On December 02, 2014 1610? Source: NARE Special Result Comments: No growth BLOOD CULTURE BLOOD CULTURE Result Instance On December 02, 2014 10:05am Source: BLOOD Special Result Comments: No growth Result Instance On December 02, 2014 10:10am Source: BLOOD Special Result Comments: No growth Allergies and Adverse Reactions Allergies and Adverse Reactions Patient Unit Number: [id number] Agent Type Reaction Severity Status IODINATED CONTRAST [...] Unknown Active Problem List Problem List Visit/Account #[id number] (December 02, 2014 9:04am - December 06, 2014 7:20pm) Acute Problems: Code/Condition Comments Documented Start Documented Code(s) Date Resolved Date Bipolar 1 disorder ICD10: F31.9 Bipolar I disorder ICD9: 296.7 Bipolar I disorder SNOMED: 024841878 Bipolar I disorder Cellulitis of left leg ICD10: L03.116 Cellulitis of left lower extremity ICD9: 682.6 Cellulitis of left lower extremity SNOMED: 079297634 Cellulitis of left lower extremity Chronic Problems: Diabetes ICD9: 250.0 Diabetes SNOMED: 64034837 Diabetes Plan of Care Plan Of Care No Plan Of Care Data. Vital Signs Vital Signs Visit/Account #[id number] (December 02, 2014 9:04am - December 06, 2014 7:20pm) Sign First Result Last Result Code(s) Blood Pressure 148/ 92 mm[Hg] On December 02, 2014 2:50pm 124/ 78 mm[Hg] On December 06, 2014 5:26pm 8480-6 BP Systolic Heart Rate/Pulse Pulse Rate (adult): 107 /min On December 02, 2014 2:50pm Pulse Rate (adult): 95 /min On December 06, 2014 5:26pm 8867-4 Heart Rate 8893-0 Pulse rate Respiratory Rate Respiratory Rate: 20 /min On December 02, 2014 2:50pm Respiratory Rate: 18 /min On December 06, 2014 5:26pm 9279-1 Respiratory rate Temperature in Fahrenheit Temperature (Fahrenheit): 98.1 [degF] On November 9:01am Temperature (Fahrenheit): 96.9 [degF] On December 06, 2014 5: 26pm 8310-5 Body Temperature Weight in Kilograms Weight (Kilograms): 102.27 kg On December 02, 2014 9:01am 3141-9 Weight Measured 87281-7 Body weight measured in kilograms Functional Status Functional and Cognitive Status No Functional Status Data Medications Home Medications - Medications that the patient was taking prior to arrival at the hospital Visit/Account #[id number] (December 02, 2014 9:04am - December 06, 2014 7:20pm) Medication Route Sig/Schedule Precondition/Indication Comments/ Instructions Codes TYLENOL(ACETAMINOPHEN) 325 MG TABLET ORAL NEEDED PAIN Acetaminophen 325 MG Oral Tablet (RxNorm): 810772 Dose: 650 MG TYLENOL (ACETAMINOPHEN) NDC: 25272264403 VENTOLIN 0.5% NEBS (use for MED REC)(ALBUTEROL SULF) 2.5 MG/0.5 ML INHALER INHALED EVERY 2 HRS WHILE AWAKE SHORTNESS OF BREATH/WHEEZING Albuterol 1 MG /ML Inhalant Solution (RxNorm): 881385 Dose: 2.5 MG VENTOLIN 0.5% NEBS (use for MED REC) (ALBUTEROL SULF) NDC: 00364887255 SYMBICORT 160-4.5(BUDESONIDE/FORMOTEROL) 6 GM INHALER ORAL TWICE A DAY Rx Note Text Comments: SYMBICORT 160-4.5 (BUDESONIDE/FORMOTEROL) NDC: 70374352851 Dose: 2 INH MAY SELF ADMINISTER NOVOLOG FLEXPEN(INSULIN ASPART) 300 UNIT/3 ML INJECTION SUBCUTANEOUSLY 3 TIMES DAILY WITH MEALS 3 ML Insulin, Aspart, Human 100 UNT/ML Prefilled Syringe [NovoLog] (RxNorm): 479831 Dose: 10 UNIT NOVOLOG FLEXPEN (INSULIN ASPART) NDC: 88845371912 LEVEMIR FLEXTOUCH(INSULIN DETEMIR) 100 UNIT/1 ML INSULN.PEN SUBCUTANEOUSLY AT BEDTIME 3 ML insulin detemir 100 UNT/ML Prefilled Syringe [Levemir] ( RxNorm): 885773 Dose: 25 UNIT LEVEMIR FLEXTOUCH (INSULIN DETEMIR) NDC: 68171291770 ATROVENT 0.02% NEB(IPRATROPIUM BROMIDE) 0.5 MG/2.5 ML SOLUTION INHALED Q2H SHORTNESS OF BREATH/WHEEZING Ipratropium Dudley 0.2 MG/ML Inhalant Solution (RxNorm): 085127 Dose: 0.5 MG ATROVENT 0.02% NEB (IPRATROPIUM BROMIDE) NDC: 99617420705 ATIVAN(LORazepam) 1 MG TABLET ORAL 3 TIMES A DAY Lorazepam 1 MG Oral Tablet [Ativan] (RxNorm): 840688 Dose: 1 MG ATIVAN (LORazepam) NDC: 76474640057 SEROQUEL XR(QUEtiapine FUMARATE) 300 MG TAB ORAL DAILY@19 24 HR quetiapine 300 MG Extended Release Oral Tablet [Seroquel] (RxNorm): 833577 Dose: 600 MG SEROQUEL XR (QUEtiapine FUMARATE) NDC: 77861231048 ULTRAM(TraMADol HCL) 50 MG TABLET ORAL 3 TIMES A DAY tramadol hydrochloride 50 MG Oral Tablet [Ultram] (RxNorm): 209335 Dose: 50 MG ULTRAM (TraMADol HCL) NDC: 25048669171 Depakote Er(DIVALPROEX SODIUM) 500 MG TAB ORAL AT BEDTIME 24 HR Divalproex Sodium 500 MG Extended Release Oral Tablet [Depakote] (RxNorm): 4738182 Dose: 1500 MG Depakote Er (DIVALPROEX SODIUM) NDC: 89233521249 Flexeril(CYCLOBENZAPRINE HCL) 10 MG TAB ORAL 3 TIMES A DAY Cyclobenzaprine hydrochloride 10 MG Oral Tablet (RxNorm): 780794 Dose: 10 MG Flexeril (CYCLOBENZAPRINE HCL) NDC: 73767054785 BENZTROPINE MESYLATE(BENZTROPINE MESYLATE) 0.5 MG TAB ORAL TWICE A DAY benztropine mesylate 0.5 MG Oral Tablet (RxNorm): 551726 Dose: 0.5 MG BENZTROPINE MESYLATE (BENZTROPINE MESYLATE) NDC: 43025241035 Neurontin(GABAPENTIN) 400 MG CAP ORAL 3 TIMES A DAY gabapentin 400 MG Oral Capsule [Neurontin] (RxNorm): 192724 Dose: 400 MG Neurontin (GABAPENTIN) NDC: 66802731130 Haloperidol(HALOPERIDOL) 2 MG TAB ORAL 3 TIMES A DAY Haloperidol 2 MG Oral Tablet (RxNorm): 938742 Dose: 2 MG Haloperidol (HALOPERIDOL) NDC: 17804336282 Hydroxyzine Pamoate(HydrOXYzine PAMOATE) 25 MG CAP ORAL 3 TIMES A DAY Hydroxyzine Pamoate 25 MG Oral Capsule (RxNorm): 688745 Dose: 25 MG Hydroxyzine Pamoate (HydrOXYzine PAMOATE) NDC: 41159891515 ATROVENT HFA INH(IPRATROPIUM BROMIDE) 12.9 GM INHALER INHALED EVERY 2 HRS WHILE AWAKE SHORTNESS OF BREATH/WHEEZING 200 ACTUAT Ipratropium Dudley 0.017 MG/ACTUAT Metered Dose Inhaler [Atrovent] (RxNorm): 373938 Dose: 2 PUFF ATROVENT HFA INH (IPRATROPIUM BROMIDE) NDC: 45981492077 MYCOSTATIN CREAM(NYSTATIN) 15 GM CREAM..G. TOPICALLY TWICE A DAY ITCHING Nystatin 394832 UNT/ML Topical Cream (RxNorm): 839780 Dose: 1 GM MYCOSTATIN CREAM (NYSTATIN) NDC: 97423361696 COLACE(DOCUSATE SODIUM) 100 MG CAPSULE ORAL AT BEDTIME Docusate Sodium 100 MG Oral Capsule [Colace] (RxNorm): 7554344 Dose: 100 MG COLACE (DOCUSATE SODIUM) NDC: 51017073157 RELION ALBUTEROL(ALBUTEROL SULF) 8 GM INHALER INHALED Q2H SHORTNESS OF BREATH/WHEEZING RELION ALBUTEROL (ALBUTEROL SULF) NDC: 51379982239 Dose: 2 PUFF Norflex(ORPHENADRINE CITRATE) 100 MG TAB ORAL AT BEDTIME MUSCLE SPASM 12 HR Orphenadrine Citrate 100 MG Extended Release Oral Tablet (RxNorm): 421008 Dose: 100 MG Norflex (ORPHENADRINE CITRATE) NDC: 95611758479 Toradol(KETOROLAC TROMETHAMINE) 10 MG TAB ORAL EVERY 6 HOURS PAIN Ketorolac Tromethamine 10 MG Oral Tablet (RxNorm): 972422 Dose: 1 TAB Toradol (KETOROLAC TROMETHAMINE) NDC: 21571044683 LEVEMIR FLEXTOUCH(INSULIN DETEMIR) 100 UNIT/1 ML INSULN.PEN SUBCUTANEOUSLY AT BEDTIME 3 ML insulin detemir 100 UNT/ML Prefilled Syringe [Levemir] ( RxNorm): 967541 Dose: 25 UNIT LEVEMIR FLEXTOUCH (INSULIN DETEMIR) NDC: 59909695993 NOVOLOG FLEXPEN(INSULIN ASPART) 300 UNIT/3 ML INJECTION SUBCUTANEOUSLY 3 TIMES DAILY WITH MEALS 3 ML Insulin, Aspart, Human 100 UNT/ML Prefilled Syringe [NovoLog] (RxNorm): 342589 Dose: 10 UNIT NOVOLOG FLEXPEN (INSULIN ASPART) NDC: 08321448985 RELION ALBUTEROL(ALBUTEROL SULF) 8 GM INHALER ORAL Q2S SHORTNESS OF BREATH/ WHEEZING RELION ALBUTEROL (ALBUTEROL SULF) NDC: 83375898233 Dose: 2 INH BENZTROPINE MESYLATE(BENZTROPINE MESYLATE) 0.5 MG TAB ORAL TWICE A DAY benztropine mesylate 0.5 MG Oral Tablet (RxNorm): 371110 Dose: 0.5 MG BENZTROPINE MESYLATE (BENZTROPINE MESYLATE) NDC: 19748955606 Flexeril(CYCLOBENZAPRINE HCL) 10 MG TAB ORAL 3 TIMES A DAY Cyclobenzaprine hydrochloride 10 MG Oral Tablet (RxNorm): 409875 Dose: 10 MG Flexeril (CYCLOBENZAPRINE HCL) NDC: 12317626927 DEPAKOTE ER(DIVALPROEX SODIUM) 500 MG TAB.ER.24H ORAL AT BEDTIME 24 HR Divalproex Sodium 500 MG Extended Release Oral Tablet [Depakote] (RxNorm): 7651415 Dose: 1500 MG DEPAKOTE ER (DIVALPROEX SODIUM) NDC: 92500428274 COLACE(DOCUSATE SODIUM) 100 MG CAPSULE ORAL AT BEDTIME Docusate Sodium 100 MG Oral Capsule (RxNorm): 1504931 Dose: 100 MG COLACE (DOCUSATE SODIUM) NDC: 49493838339 Gabapentin(GABAPENTIN) 400 MG CAP ORAL 3 TIMES A DAY gabapentin 400 MG Oral Capsule [Neurontin] (RxNorm): 892901 Dose: 400 MG Gabapentin (GABAPENTIN) NDC: 38183970367 Haloperidol(HALOPERIDOL) 2 MG TAB ORAL 3 TIMES A DAY Haloperidol 2 MG Oral Tablet (RxNorm): 433991 Dose: 2 MG Haloperidol (HALOPERIDOL) NDC: 09793433384 VISTARIL(HydrOXYzine PAMOATE) 25 MG CAPSULE ORAL 3 TIMES A DAY PRN Hydroxyzine Pamoate 25 MG Oral Capsule [Vistaril] (RxNorm): 137853 Dose: 25 MG VISTARIL (HydrOXYzine PAMOATE) NDC: 60581388033 NOVOLOG FLEXPEN(INSULIN ASPART) 300 UNIT/3 ML INJECTION SUBCUTANEOUSLY 3 TIMES DAILY WITH MEALS 3 ML Insulin, Aspart, Human 100 UNT/ML Prefilled Syringe [NovoLog] (RxNorm): 759232 Dose: 50 UNITS NOVOLOG FLEXPEN (INSULIN ASPART) NDC: [id number] LEVEMIR FLEXTOUCH(INSULIN DETEMIR) 100 UNIT/1 ML INSULN.PEN SUBCUTANEOUSLY AT BEDTIME 3 ML insulin detemir 100 UNT/ML Prefilled Syringe [Levemir] ( RxNorm): 757851 Dose: 70 UNITS LEVEMIR FLEXTOUCH (INSULIN DETEMIR) NDC: 81620140208 ATROVENT HFA INH(IPRATROPIUM BROMIDE) 12.9 GM INHALER INHALED EVERY 2 HRS WHILE AWAKE SHORTNESS OF BREATH/WHEEZING 200 ACTUAT Ipratropium [place] 0.017 MG/ACTUAT Metered Dose Inhaler [Atrovent] (RxNorm): 444953 Dose: 2 PUFF ATROVENT HFA INH (IPRATROPIUM BROMIDE) NDC: 84916750855 LORazepam(LORazepam) 1 MG TABLET ORAL 3 TIMES A DAY Lorazepam 1 MG Oral Tablet (RxNorm): 104215 Dose: 1 MG LORazepam (LORazepam) NDC: 67542866671 MYCOSTATIN CREAM(NYSTATIN) 15 GM CREAM..G. TOPICALLY TWICE A DAY ITCHING Nystatin 789982 UNT/ML Topical Cream (RxNorm): 350627 Dose: 1 APPL MYCOSTATIN CREAM (NYSTATIN) NDC: 74163157353 SEROQUEL XR(QUEtiapine FUMARATE) 300 MG TAB ORAL DAILY@1900 24 HR quetiapine 300 MG Extended Release Oral Tablet [Seroquel] (RxNorm): 057511 Dose: 600 MG SEROQUEL XR (QUEtiapine FUMARATE) NDC: 37838371558 TRAMADOL HCL(TraMADol HCL) 50 MG TABLET ORAL 3 TIMES A DAY tramadol hydrochloride 50 MG Oral Tablet (RxNorm): 532802 Dose: 50 MG TRAMADOL HCL (TraMADol HCL) NDC: 14908537219 Pristiq(DESVENLAFAXINE SUCCINATE) 100 MG TAB ORAL EVERY MORNING 24 HR Desvenlafaxine 100 MG Extended Release Oral Tablet [Pristiq] (RxNorm): 032182 Dose: 100 MG Pristiq (DESVENLAFAXINE SUCCINATE) NDC: [id number] Inpatient/Ordered Medications - Medications administered during hospital visit Visit/Account #[id number] (December 02, 2014 9:04am - December 06, 2014 7:20pm) Medication Route Sig/Schedule Precondition/Indication Comments/ Instructions Codes SUBLIMAZE INJ(FentaNYL CITRATE) 100 MCG/2 ML INJECTION INTRAVEN NOW Rx Order Comments: Fentanyl 0.05 MG/ML Injectable Solution (RxNorm): 433914 Dose: 1 ML Order placed as verified: Allergies/Duplicates/Interactions differ from telephone order clerk SUBLIMAZE INJ (FentaNYL CITRATE) NDC: [id number] Dose Warnings differ from telephone order clerk Label Comments: GIVE BY SLOW PUSH OVER 2-5 MIN MAY INCREASE FALL RISK IV Medication INTRAVEN NOW (Rate: 166.667 MLS/HR Duration: 1 HR 30 MIN) Rx Order Comments: Additives: Order placed as verified: Additives: Allergies/Duplicates/Interactions differ from telephone order clerk Vancomycin 50 MG/ML Injectable Solution (RxNorm): 585743 Dose Warnings differ from telephone order clerk VANCOCIN(VANCOMYCIN HCL) 1000 MG INJECTION VANCOCIN (VANCOMYCIN HCL) NDC: 81983789171 Dose: 1500 MG Label Comments: REFRIGERATE Carriers: Carriers: Sodium Chloride 0.154 MEQ/ML Injectable Solution (RxNorm): 352030 SODIUM CHLORIDE 250 ML INJECTION Dose: 250 ML (SODIUM CHLORIDE) NDC: 85619072195 IV Medication INTRAVEN .Q1H (Rate: 1000 MLS/HR Duration: 1 HR) Rx Order Comments: Carriers: Order placed as verified: Carriers: Dose Warnings differ from telephone order clerk Sodium Chloride 0.154 MEQ/ML Injectable Solution (RxNorm): 797353 Dose Warnings differ from telephone order clerk NORMAL SALINE(SODIUM CHLORIDE) 1000 ML INJECTION NORMAL SALINE ( SODIUM CHLORIDE) NDC: 54646476385 Dose: 1000 ML SUBLIMAZE INJ(FentaNYL CITRATE) 100 MCG/2 ML INJECTION Route .STK-MED Fentanyl 0.05 MG/ML Injectable Solution (RxNorm): 818878 Dose: 100 MCG SUBLIMAZE INJ (FentaNYL CITRATE) NDC: 70472934606 SUBLIMAZE INJ(FentaNYL CITRATE) 100 MCG/2 ML INJECTION INTRAVEN NOW Rx Order Comments: Fentanyl 0.05 MG/ML Injectable Solution (RxNorm): 973055 Dose: 1 ML Order placed as verified: Dose Warnings differ from telephone order clerk SUBLIMAZE INJ (FentaNYL CITRATE ) NDC: 97306368282 Dose Warnings differ from telephone order clerk Label Comments: GIVE BY SLOW PUSH OVER 2-5 MIN MAY INCREASE FALL RISK SUBLIMAZE INJ(FentaNYL CITRATE) 100 MCG/2 ML INJECTION INTRAVEN Q4H pain Label Comments: Fentanyl 0.05 MG/ML Injectable Solution (RxNorm): 905341 Dose: 0 ML GIVE BY SLOW PUSH OVER 2-5 MIN MAY INCREASE FALL RISK SUBLIMAZE INJ (FentaNYL CITRATE) NDC: 54547205980 Special Dose Instructions: 25-50 mcg IV q4h PRN pain PERCOCET 5/325(OxyCODONE/ACETAMINOPHEN) 1 TAB TAB ORAL Q4H PRN Reason: MODERATE TO SEVERE PAIN Label Comments: Acetaminophen 325 MG / Oxycodone Hydrochloride 5 MG Oral Tablet (RxNorm): 3589208 Dose: 0 TAB MAX REC DOSE ACETAMINOPHEN: 4000MG/24HRS MAY INCREASE FALL RISK PERCOCET 5/325 (OxyCODONE/ACETAMINOPHEN) NDC: 21655069622 Special Dose Instructions: 1-2 TABS COGENTIN(BENZTROPINE MESYLATE) 0.5 MG TAB ORAL TWICE A DAY benztropine mesylate 0.5 MG Oral Tablet (RxNorm): 738868 Dose: 0.5 MG COGENTIN (BENZTROPINE MESYLATE) NDC: 85293417211 SYMBICORT 160(BUDESONIDE/FORMOTEROL) 60 PUFF/6 GM INHALER INHALED TWICE DAILY Label Comments: SYMBICORT 160 (BUDESONIDE/FORMOTEROL) NDC: 68149989518 Dose: 0.2 GM SHAKE WELL FOR 5 SECONDS BEFORE EACH USE DEPAKOTE ER(DIVALPROEX SODIUM) 500 MG TAB ORAL AT BEDTIME Label Comments: 24 HR Divalproex Sodium 500 MG Extended Release Oral Tablet [Depakote] (RxNorm ): 8431465 Dose: 1500 MG DO NOT CUT OR CRUSH. WEAR GLOVES WHEN HANDLING. DEPAKOTE ER (DIVALPROEX SODIUM) NDC: 84728743881 NEURONTIN(GABAPENTIN) 400 MG CAP ORAL 3 TIMES A DAY Label Comments: gabapentin 400 MG Oral Capsule [Neurontin] (RxNorm): 028604 Dose: 400 MG MAY INCREASE FALL RISK NEURONTIN (GABAPENTIN) NDC: 63754583371 HALDOL(HALOPERIDOL) 2 MG TAB ORAL 3 TIMES A DAY Label Comments: Haloperidol 2 MG Oral Tablet (RxNorm): 038749 Dose: 2 MG MAY INCREASE FALL RISK HALDOL (HALOPERIDOL) NDC: 17094810552 VISTARIL(HydrOXYzine PAMOATE) 25 MG CAP ORAL 3 TIMES A DAY Label Comments : Hydroxyzine Pamoate 25 MG Oral Capsule (RxNorm): 105786 Dose: 25 MG MAY INCREASE FALL RISK VISTARIL (HydrOXYzine PAMOATE) NDC: 12296686771 ATIVAN(LORazepam) 1 MG TAB ORAL 3 TIMES A DAY Label Comments: Lorazepam 1 MG Oral Tablet (RxNorm): 185994 Dose: 1 MG MAY INCREASE FALL RISK ATIVAN (LORazepam) NDC: 58953676759 SEROquel XR(QUEtiapine FUMARATE) 300 MG TAB ORAL DAILY@19 Label Comments: 24 HR quetiapine 300 MG Extended Release Oral Tablet [Seroquel] (RxNorm): 356016 Dose: 600 MG DO NOT CRUSH MAY INCREASE FALL RISK SEROquel XR (QUEtiapine FUMARATE) NDC: 80329987736 HumaLOG(INSULIN HUM LISPRO) 300 UNIT/3 ML INJECTION SUBCUTANEOUSLY SLIDING SCALE PRN Reason: HYPERGLYCEMIA Special Dose Instructions: Insulin Lispro 100 UNT/ML Injectable Solution [Humalog] (RxNorm): 837663 Dose: 0 ML STANDARD SCALE If BS less than 80 Call physician HumaLOG (INSULIN HUM LISPRO) NDC: 49714847518 If BS 151-200 Give 2 Units If BS 201-250 Give 4 Units If BS 251-300 Give 6 Units If BS 301-350 Give 8 Units If BS 351-400 Give 10 Units If BS 401-450 Give 12 Units If BS greater than 450 Call physician DOCUMENT SITE OF INJECTION HumaLOG(INSULIN HUM LISPRO) 300 UNIT/3 ML INJECTION SUBCUTANEOUSLY 3 TIMES DAILY WITH MEALS Label Comments: Insulin Lispro 100 UNT/ML Injectable Solution [Humalog] (RxNorm): 849365 Dose: 0.5 ML <rapid acting insulin> *protect from light* Give IMMEDIATELY before a meal. HumaLOG (INSULIN HUM LISPRO) NDC: 36537711065 *expires 28 days after dispense date* LEVEMIR(INSULIN DETEMIR) 1000 UNITS/10 ML INJECTION SUBCUTANEOUSLY AT BEDTIME Label Comments: insulin detemir 100 UNT/ML Injectable Solution [ Levemir] (RxNorm): 919654 Dose: 0.7 ML Do NOT refrigerate. * Syringe expires in 24 hours. LEVEMIR (INSULIN DETEMIR) NDC: 80325176874 COLACE(DOCUSATE SODIUM) 100 MG CAP ORAL TWICE A DAY Docusate Sodium 100 MG Oral Capsule (RxNorm): 9395431 Dose: 100 MG COLACE (DOCUSATE SODIUM) NDC: 87353519157 VENTOLIN 0.5% NEB(ALBUTEROL SULF) 2.5 MG/0.5 ML INHALER INHALED TWICE A DAY Albuterol 1 MG/ML Inhalant Solution (RxNorm): 412691 Dose: 0.5 ML VENTOLIN 0.5% NEB (ALBUTEROL SULF) NDC: 39870632846 ATROVENT 0.02% NEB(IPRATROPIUM BROMIDE) 0.5 MG/2.5 ML SOLUTION INHALED TWICE A DAY Ipratropium Dudley 0.2 MG/ML Inhalant Solution (RxNorm): 334300 Dose: 2.5 ML ATROVENT 0.02% NEB (IPRATROPIUM BROMIDE) NDC: 59746018982 NORVASC(AmLODIpine BESYLATE) 5 MG TAB ORAL DAILY Label Comments: Amlodipine 5 MG Oral Tablet [Norvasc] (RxNorm): 454419 Dose: 5 MG MAY INCREASE FALL RISK NORVASC (AmLODIpine BESYLATE) NDC: 87774595885 ZESTRIL(LISINOPRIL) 10 MG TAB ORAL DAILY Label Comments: Lisinopril 10 MG Oral Tablet (RxNorm): 718382 Dose: 10 MG MAY INCREASE FALL RISK ZESTRIL (LISINOPRIL) NDC: 11047083577 IV Medication INTRAVEN .[id number] (Rate: 80 MLS/HR Duration: 12 HR 30 MIN) Carriers: Carriers: Potassium Chloride 0.02 MEQ/ML / Sodium Chloride 0.154 MEQ/ ML Injectable Solution (RxNorm): 496038 SODIUM CHLORIDE 0.9%- POTASSIUM CHLOR 20 MEQ(KCL/SODIUM CHLORIDE) 20 MEQ/1000 ML INJECTION SODIUM CHLORIDE 0.9%- POTASSIUM CHLOR 20 MEQ (KCL/SODIUM CHLORIDE) NDC: 24367360273 Dose: 1000 ML LOVENOX(ENOXAPARIN) 40 MG/0.4 ML INJECTION SUBCUTANEOUSLY DAILY@07 Label Comments: 0.4 ML Enoxaparin sodium 100 MG/ML Prefilled Syringe [Lovenox] ( RxNorm): 351513 Dose: 0.4 ML INJECT SC INTO ABDOMINAL WALL ONLY. LOVENOX (ENOXAPARIN) NDC: 70849226549 IV Medication INTRAVEN Q12S (Rate: 333.333 MLS/HR Duration: 1 HR 30 MIN) Clinical Indication: ABX non-surgical pt Label Comments: Additives: REFRIGERATE Additives: Expires 24 HRS after preparation Vancomycin 50 MG/ML Injectable Solution (RxNorm): 541506 VANCOCIN(VANCOMYCIN HCL) 1000 MG INJECTION VANCOCIN (VANCOMYCIN HCL) NDC: 86946553218 Dose: 1750 MG Carriers: Carriers: Sodium Chloride 0.154 MEQ/ML Injectable Solution (RxNorm): 785198 SODIUM CHLORIDE 500 ML INJECTION Dose: 500 ML (SODIUM CHLORIDE) NDC: 12356616010 SYNTHROID(LEVOTHYROXINE SODIUM) 0.05 MG TAB ORAL DAILY@07 Label Comments: Levothyroxine Sodium 0.05 MG Oral Tablet [Synthroid] (RxNorm): 219405 Dose: 0.05 MG 0.05 MG=50 MCG SYNTHROID (LEVOTHYROXINE SODIUM) NDC: 38379782701 IV Medication INTRAVEN NOW (Rate: 8 MLS/HR Duration: 6 HR 15 MIN) Label Comments: Carriers: Please give over 6 hours Carriers: Magnesium Sulfate 0.325 MEQ/ML Injectable Solution (RxNorm) : 737666 MAGNESIUM SULFATE 2 GM/50 ML INJECTION (MAGNESIUM SULFATE) NDC: 02982485547 Dose: 50 ML K-DUR(POTASSIUM CHLORIDE) 20 MEQ TAB ORAL NOW Label Comments: Potassium Chloride 20 MEQ Extended Release Oral Tablet [Klor-Con] (RxNorm): 371260 Dose: 40 MEQ TAKE WITH FOOD TO AVOID GI UPSET K-DUR (POTASSIUM CHLORIDE) NDC: 05837799839 IV Medication INTRAVEN Q24H (Rate: 100 MLS/HR Duration: 30 MIN) Clinical Indication: ABX non-surgical pt Label Comments: Additives: *DO NOT RUN WITH DEXTROSE* Additives: STABLE FOR 24 HR IN REFRIGERATOR. USE WITH IN 4 ertapenem 313 MG/ML Injectable Solution [Invanz] (RxNorm): 156960 HR OF REMOVING FROM REFRIGERATOR. INVanz INJ(ERTAPENEM) 1000 MG INJECTION INVanz INJ (ERTAPENEM) NDC: 07958185760 Dose: 1000 MG Carriers: Carriers: Sodium Chloride 0.154 MEQ/ML Injectable Solution (RxNorm): 327265 SODIUM CHLORIDE 50 ML INJECTION Dose: 50 ML (SODIUM CHLORIDE) NDC: 02401748248 PRISTIQ(DESVENLAFAXINE SUCCINATE) 100 MG TAB ORAL DAILY 24 HR Desvenlafaxine 100 MG Extended Release Oral Tablet [Pristiq] (RxNorm): 216564 Dose: 100 MG PRISTIQ (DESVENLAFAXINE SUCCINATE) NDC: 15526050086 HALDOL(HALOPERIDOL) 10 MG TAB ORAL TWICE A DAY Rx Order Comments: Haloperidol 10 MG Oral Tablet (RxNorm): 791745 Dose: 10 MG Order filed UNV: Allergies/Duplicates/Interactions differ from telephone order clerk HALDOL ( HALOPERIDOL) NDC: 36879445839 Label Comments: MAY INCREASE FALL RISK LASIX(FUROSEMIDE) 20 MG TAB ORAL DAILY Label Comments: Furosemide 20 MG Oral Tablet (RxNorm): 976760 Dose: 20 MG MAY INCREASE FALL RISK LASIX (FUROSEMIDE) NDC: 92315855949 Discharge Medications - Medications that patient should continue to take. Review with physician Visit/Account #[id number] (December 02, 2014 9:04am - December 06, 2014 7:20pm) Medication Route Sig/Schedule Precondition/Indication Comments/ Instructions Codes TYLENOL(ACETAMINOPHEN) 325 MG TABLET ORAL NEEDED PAIN Acetaminophen 325 MG Oral Tablet (RxNorm): 840836 Dose: 650 MG TYLENOL (ACETAMINOPHEN) NDC: 83573325615 VENTOLIN 0.5% NEBS (use for MED REC)(ALBUTEROL SULF) 2.5 MG/0.5 ML INHALER INHALED EVERY 2 HRS WHILE AWAKE SHORTNESS OF BREATH/WHEEZING Albuterol 1 MG /ML Inhalant Solution (RxNorm): 294529 Dose: 2.5 MG VENTOLIN 0.5% NEBS (use for MED REC) (ALBUTEROL SULF) NDC: 65526675301 SYMBICORT 160-4.5(BUDESONIDE/FORMOTEROL) 6 GM INHALER ORAL TWICE A DAY Rx Note Text Comments: SYMBICORT 160-4.5 (BUDESONIDE/FORMOTEROL) NDC: 59097248179 Dose: 2 INH MAY SELF ADMINISTER ATROVENT 0.02% NEB(IPRATROPIUM BROMIDE) 0.5 MG/2.5 ML SOLUTION INHALED Q2H SHORTNESS OF BREATH/WHEEZING Ipratropium Dudley 0.2 MG/ML Inhalant Solution (RxNorm): 562978 Dose: 0.5 MG ATROVENT 0.02% NEB (IPRATROPIUM BROMIDE) NDC: 46504210993 RELION ALBUTEROL(ALBUTEROL SULF) 8 GM INHALER ORAL Q2S SHORTNESS OF BREATH/ WHEEZING RELION ALBUTEROL (ALBUTEROL SULF) NDC: 95836944032 Dose: 2 INH BENZTROPINE MESYLATE(BENZTROPINE MESYLATE) 0.5 MG TAB ORAL TWICE A DAY benztropine mesylate 0.5 MG Oral Tablet (RxNorm): 135986 Dose: 0.5 MG BENZTROPINE MESYLATE (BENZTROPINE MESYLATE) NDC: 85531020525 Flexeril(CYCLOBENZAPRINE HCL) 10 MG TAB ORAL 3 TIMES A DAY Cyclobenzaprine hydrochloride 10 MG Oral Tablet (RxNorm): 567652 Dose: 10 MG Flexeril (CYCLOBENZAPRINE HCL) NDC: 96490723929 DEPAKOTE ER(DIVALPROEX SODIUM) 500 MG TAB.ER.24H ORAL AT BEDTIME 24 HR Divalproex Sodium 500 MG Extended Release Oral Tablet [Depakote] (RxNorm): 6253212 Dose: 1500 MG DEPAKOTE ER (DIVALPROEX SODIUM) NDC: 76293419694 COLACE(DOCUSATE SODIUM) 100 MG CAPSULE ORAL AT BEDTIME Docusate Sodium 100 MG Oral Capsule (RxNorm): 8584949 Dose: 100 MG COLACE (DOCUSATE SODIUM) NDC: 52662005479 Gabapentin(GABAPENTIN) 400 MG CAP ORAL 3 TIMES A DAY gabapentin 400 MG Oral Capsule [Neurontin] (RxNorm): 528627 Dose: 400 MG Gabapentin (GABAPENTIN) NDC: 04107691271 VISTARIL(HydrOXYzine PAMOATE) 25 MG CAPSULE ORAL 3 TIMES A DAY PRN Hydroxyzine Pamoate 25 MG Oral Capsule [Vistaril] (RxNorm): 578264 Dose: 25 MG VISTARIL (HydrOXYzine PAMOATE) NDC: 02908075399 NOVOLOG FLEXPEN(INSULIN ASPART) 300 UNIT/3 ML INJECTION SUBCUTANEOUSLY 3 TIMES DAILY WITH MEALS 3 ML Insulin, Aspart, Human 100 UNT/ML Prefilled Syringe [NovoLog] (RxNorm): 874588 Dose: 50 UNITS NOVOLOG FLEXPEN (INSULIN ASPART) NDC: 77127169972 LEVEMIR FLEXTOUCH(INSULIN DETEMIR) 100 UNIT/1 ML INSULN.PEN SUBCUTANEOUSLY AT BEDTIME 3 ML insulin detemir 100 UNT/ML Prefilled Syringe [Levemir] ( RxNorm): 778383 Dose: 70 UNITS LEVEMIR FLEXTOUCH (INSULIN DETEMIR) NDC: 70342503351 ATROVENT HFA INH(IPRATROPIUM BROMIDE) 12.9 GM INHALER INHALED EVERY 2 HRS WHILE AWAKE SHORTNESS OF BREATH/WHEEZING 200 ACTUAT Ipratropium Dudley 0.017 MG/ACTUAT Metered Dose Inhaler [Atrovent] (RxNorm): 142619 Dose: 2 PUFF ATROVENT HFA INH (IPRATROPIUM BROMIDE) NDC: 33807963234 LORazepam(LORazepam) 1 MG TABLET ORAL 3 TIMES A DAY Lorazepam 1 MG Oral Tablet (RxNorm): 788173 Dose: 1 MG LORazepam (LORazepam) NDC: 20488560692 MYCOSTATIN CREAM(NYSTATIN) 15 GM CREAM..G. TOPICALLY TWICE A DAY ITCHING Nystatin 459832 UNT/ML Topical Cream (RxNorm): 151929 Dose: 1 APPL MYCOSTATIN CREAM (NYSTATIN) NDC: 88009057744 SEROQUEL XR(QUEtiapine FUMARATE) 300 MG TAB ORAL DAILY@1900 24 HR quetiapine 300 MG Extended Release Oral Tablet [Seroquel] (RxNorm): 837928 Dose: 600 MG SEROQUEL XR (QUEtiapine FUMARATE) NDC: 74650531528 TRAMADOL HCL(TraMADol HCL) 50 MG TABLET ORAL 3 TIMES A DAY tramadol hydrochloride 50 MG Oral Tablet (RxNorm): 775870 Dose: 50 MG TRAMADOL HCL (TraMADol HCL) NDC: 63204256518 Pristiq(DESVENLAFAXINE SUCCINATE) 100 MG TAB ORAL EVERY MORNING 24 HR Desvenlafaxine 100 MG Extended Release Oral Tablet [Pristiq] (RxNorm): 119231 Dose: 100 MG Pristiq (DESVENLAFAXINE SUCCINATE) NDC: 17357308182 Haloperidol(HALOPERIDOL) 10 MG TAB ORAL TWICE A DAY Rx Instructions: Haloperidol 10 MG Oral Tablet (RxNorm): 897789 Dose: 10 MG HOme med Haloperidol (HALOPERIDOL) NDC: 75727872253 OMNICEF(CEFDINIR) 300 MG CAP ORAL TWICE A DAY cefdinir 300 MG Oral Capsule (RxNorm): 355230 Dose: 300 MG OMNICEF (CEFDINIR) NDC: 79786140010 SYNTHROID(LEVOTHYROXINE SODIUM) 0.05 MG TABLET ORAL DAILY@07 Levothyroxine Sodium 0.05 MG Oral Tablet [Synthroid] (RxNorm): 384982 Dose: 0.05 MG SYNTHROID (LEVOTHYROXINE SODIUM) NDC: 15933537863 OXYCODONE HCL/ACETAMINOPHEN 5-325(OxyCODONE HCL/ACETAMINOPHEN) 1 EACH TABLET ORAL Q4H MODERATE TO SEVERE PAIN Acetaminophen 325 MG / Oxycodone Hydrochloride 5 MG Oral Tablet (RxNorm): 8747610 Dose: 1 TAB OXYCODONE HCL/ACETAMINOPHEN 5-325 (OxyCODONE HCL/ACETAMINOPHEN) NDC: 37452064345 History Of Encounters Encounters Visit/Account #[id number] (December 02, 2014 9:04am - December 06, 2014 7:20pm) Account Physican Of Reason For Visit Visit Start Stop Date/Time Status Record Diagnosis Date/Time ER HINA HENRY MD CELLULITIS OF LEFT LEG Not Available Dec 02, 2014 9:04am Dec 02, 2014 2:45pm IN KE ESTRADA MD CELLULITIS OF LEFT LEG Not Available Dec 02, 2014 12:03pm Dec 06, 2014 7:20pm History of Procedures Procedure List No procedures recorded. Discharge Instructions Discharge Instructions Visit/Account #[id number] (December 02, 2014 9:04am - December 06, 2014 7:20pm) DISCHARGE INSTRUCTIONS Physician Documentation PROVIDER INSTRUCTIONS Discharge Diet ADA 2000 Emeka Discharge Activity/Weight Bearing Status Light activity as tolerated. Discharge Diet ADA 2000 Emeka Discharge Activity/Weight Bearing Status Light activity as tolerated. CARE MANAGEMENT/HOME HEALTH Care Management Please assist patient with transportation home. Arrange outpatient wound care clinic for follow-up on leg cellulitis. REASON TO CALL PROVIDER Notify Physician if: Symptoms worsen, or new symptoms occur. FOLLOW UP APPOINTMENTS Follow Up With 1) Establish new PCP as soon as able. 2) [facility] December 07 @ 3:00 pm see also carlos figueroa Dec 13 @ 2:40 3) Wound care clinic [id number]. [id number] @3:30 Social History Social History No Social History Data. Immunizations Immunizations Patient Unit Number: [id number] Immunizations No immunizations recorded.
--- OUTSIDE RECORDS SUMMARY | 2016-10-20 19:21 | External Medical Summary ---
:1975 Author Organization [employer] Care Team Providers Name Role Phone Easton Gomez Provider Role Unavailable Allergies, Adverse Reactions, Alerts [...] Condition Code Onset Dates Condition Status Assessment Suicidal ideation R45.851 Active Problem Dysphagia R13.10 Active Problem Visual impairment in both eyes H54.3 Active Problem Type 2 diabetes mellitus with E11.65 Active hyperglycemia Assessment Hypertension I10 Active Problem Lethargy R53.83 Active Problem Hypertension I10 Active Problem S/P cervical spinal fusion Z98.1 Active Problem Cervicalgia M54.2 Active Problem History of fall Z91.81 Active Problem Cervical spinal stenosis M48.02 Active Assessment Dysphagia R13.10 Active Assessment Cervicalgia M54.2 Active Assessment Visual impairment in both eyes H54.3 Active Assessment Type 2 diabetes mellitus with E11.65 Active hyperglycemia Assessment History of fall Z91.81 Active Assessment Insomnia G47.00 Active Assessment S/P cervical spinal fusion Z98.1 Active Assessment Bipolar disorder, current episode F31.5 Active depressed, severe, with psychotic features Assessment Cervical spinal stenosis M48.02 Active Assessment Chronic pain syndrome G89.4 Active Medications Medication Code Code Instructions Start End Status Dosage System Date Date amlodipine NDC 61154 5 mg orally once a 1 tab(s) day docusate sodium NDC 0 100 mg bid 1 cap haloperidol NDC 36817 decanoate 100 mg/mL 0.2mL intramuscularly q (20mg) 30 days melatonin NDC 28232 3 mg orally once 1 tab(s) (at bedtime) acetaminophen NDC 24130 325 mg orally every 2 tab(s) 4 hours prn divalproex sodium NDC 11126 500 mg orally BID 1 tab(s) magnesium oxide NDC 07110 400 mg orally 4 2 tab(s) times per day for constipation clozapine NDC 16270 25 mg orally qhs 2 tab(s) Combivent NDC 985455 CFC free 100 mcg-20 1 puff(s) Respimat mcg/inh inhaled 4 times a day Butrans NDC 472572 5 mcg/hr applied 1 PATCH topically once a week hydroxyzine NDC 69362 hydrochloride 25 mg 1 tab(s) orally TID NovoLog NDC 96403 100 units/mL 0 subcutaneously per sliding scale Seroquel XR NDC 0 400 mg oral daily 1 Xarelto NDC 337787 10 mg orally once a 1 tab(s) day gabapentin NDC 72741 600 mg orally 3 1 tab(s) times a day Procedures Procedure Coding System Code Date Subseq Care-New CC CPT-4 95604 July 26, 2015 Results No Known Results Summary Purpose [employer] Submission
--- OUTSIDE RECORDS SUMMARY | 2016-10-20 19:21 | External Medical Summary | Referral Summary ---
:1975 Author Organization [facility] Address [address] [place] [address] Care Team Providers Name Role Phone Easton Gomez Primary Care Physician Encounter VC Date(s): 01/04/16 - 01/06/16 [facility] [address] [place] [address] Discharge Disposition: 01-Home or Self Care Attending Physician: Dannie Helton DO Admitting Physician: Dannie Helton DO Vital Signs Most recent to oldest [Reference Range]: 1 Temperature Oral [35.8-37.3 degC] 36.7 degC (01/06/16 9:07 AM) Temperature Temporal Artery [36.3-37.8 degC] 36 degC *LOW* (01/06/16 1:00 PM) Apical Heart Rate [60-100 bpm] 106 bpm *HI* (01/04/16 4:30 AM) Peripheral Pulse Rate [60-100 bpm] 104 bpm *HI* (01/06/16 9:07 AM) Heart Rate Monitored [60-100 bpm] 100 bpm (01/06/16 1:00 PM) Respiratory Rate [14-20 br/min] 13 br/min *LOW* (01/06/16 1:00 PM) Blood Pressure [90-140/60-90 mmHg] 136/89 mmHg (01/06/16 1:00 PM) Mean Arterial Pressure, Cuff 96 mmHg (01/06/16 1:00 PM) SpO2 97 % (01/06/16 12:37 PM) Remote Telemetry Ongoing (01/05/16 4:00 PM) Problem List Condition Effective Dates Status Health Status Informant Acute pain(Confirmed) Active At risk for falls(Confirmed)1 Active At risk for infection(Confirmed)2 Active At risk for injury(Confirmed)3 Active At risk of pressure sore(Confirmed) Active Bipolar 1 disorder(Confirmed) Active patient Depression(Confirmed) Active patient DM (diabetes mellitus)(Confirmed) Active patient HTN (hypertension)(Confirmed) Active patient Knowledge deficit(Confirmed)4 Active RA (rheumatoid arthritis)(Confirmed) Active patient Self -care deficit(Confirmed)5 Active Tissue perfusion Active alteration(Confirmed)6 1This problem was added by Discern Expert.2Problem added automatically by system based on initiation of At Risk for Infection in Nutrition Planof [id number] added automatically by system based on initiation of Risk for Injury Plan of [id number] added automatically by system based on initiation of Knowledge Deficit Plan of [id number] added automatically by system based on initiation of Self Care Deficit Plan of [id number] added automatically by system based on initiation of Tissue Perfusion Cerebral Plan of Care Allergies, Adverse Reactions, Alerts Substance Reaction Severity Status aspirin Active codeine Active Green Beans Active Kiwi Active morphine hives Active shortness of air Nutrasweet throat swelling Active Peanuts Active penicillin Active shellfish Active Strawberries Active TEGretol Active Medications acetaminophen 650 mg, Oral, TID, 0 Refill(s) Start Date: 01/04/16 Status: Orderedacetaminophen 325 mg oral tablet 650 mg 2 tabs, Oral, q4hr, Pain Mild (1-3)/temp, 0 Refill(s) Start Date: 06/22/15 Status: OrderedClozaril 100 mg oral tablet 100 mg 1 tabs, Oral, Bedtime (once a day), # 21 tabs, 0 Refill(s) Start Date: 01/05/16 Status: OrdereddiphenhydrAMINE 25 mg oral tablet 25 - 50 mg, Oral, q6hr, Pruritus/Itching, 0 Refill(s) Start Date: 06/22/15 Status: Ordereddivalproex sodium 500 mg oral tablet, extended release 1,000 mg 2 tabs, Oral, Bedtime (once a day), 0 Refill(s) Start Date: 06/16/15 Status: OrderedDulcolax Laxative 5 mg oral delayed release tablet 5 mg 1 tabs, Oral, Daily, Constipation, 0 Refill(s) Start Date: 06/22/15 Status: OrderedDuoNeb 0.5 mg-2.5 mg/3 mL inhalation solution 3 mL, NEB, q4hr, as needed for shortness of breath or wheezing, 0 Refill(s) Start Date: 01/04/16 Status: OrderedEpiPen 2-Edin 0.3 mg, IntraMuscular, Once, as needed for anaphylaxis, 0 Refill(s) Start Date: 01/04/16 Status: Orderedesomeprazole 40 mg oral delayed release capsule 40 mg 1 caps, Oral, Daily, 0 Refill(s) Start Date: 01/04/16 Status: Orderedgabapentin 600 mg oral tablet 600 mg 1 tabs, Oral, TID, 0 Refill(s) Start Date: 06/16/15 Status: OrderedHumaLOG 22 units, SubCutaneous, TIDAC, 0 Refill(s) Start Date: 01/05/16 Status: OrderedLipitor 80 mg oral tablet 80 mg 1 tabs, Oral, Daily, 0 Refill(s) Start Date: 01/06/16 Status: Orderedlisinopril 5 mg oral tablet 5 mg 1 tabs, Oral, Daily, 0 Refill(s) Start Date: 01/06/16 Status: OrderedLORazepam 1 mg oral tablet 1 mg 1 tabs, Oral, q6hr, panic attack, 0 Refill(s) Start Date: 06/16/15 Status: Orderedmagnesium oxide 400 mg (241.3 mg elemental magnesium) oral tablet 800 mg 2 tabs, Oral, QID, 0 Refill(s) Start Date: 06/22/15 Status: Orderedmelatonin 3 mg oral tablet 3 mg 1 tabs, Oral, Bedtime (once a day), as needed for insomnia, # 60 tabs, 0 Refill(s) Start Date: 01/04/16 Status: Orderedmeloxicam 7.5 mg oral tablet 7.5 mg 1 tabs, Oral, Daily, 0 Refill(s) Start Date: 01/04/16 Status: OrderedmetFORMIN 500 mg oral tablet 500 mg 1 tabs, Oral, Daily, 0 Refill(s) Start Date: 01/04/16 Status: OrderedMilk of Magnesia 2,400 mg 30 mL, Oral, Daily, Constipation, 0 Refill(s) Start Date: 06/22/15 Status: OrderedProventil HFA 90 mcg/inh inhalation aerosol 2-6 puffs, Inhalation, q2hr (scheduled), Bronchospasms, 0 Refill(s) Start Date: 01/06/16 Status: Orderedsenna 8.6 mg oral tablet 17.2 mg 2 tabs, Oral, Bedtime (once a day), 0 Refill(s) Start Date: 01/04/16 Status: OrderedSEROquel XR 400 mg oral tablet, extended release 400 mg 1 tabs, Oral, qPM, 0 Refill(s) Start Date: 06/16/15 Status: OrderedSpiriva 18 mcg, Inhalation, Daily, 0 Refill(s) Start Date: 01/04/16 Status: OrderedVistaril 50 mg, Oral, TID, 0 Refill(s) Start Date: 01/04/16 Status: OrderedZofran ODT 8 mg oral tablet, disintegrating 8 mg 1 tabs, Oral, q6hr, Nausea or Vomiting, 0 Refill(s) Start Date: 01/05/16 Status: Ordered Results Hematology Most recent to oldest [Reference Range]: 1 WBC [4.8-10.8 10*3/uL] 7.2 10*3/uL (01/04/16 12:19 AM) RBC [4.00-5.20] 4.07 (01/04/16 12:19 AM) Hgb [12.0-16.0 gm/dL] 10.7 gm/dL *LOW* (01/04/16 12:19 AM) Hct [37.0-47.0 %] 33.5 % *LOW* (01/04/16 12:19 AM) MCV [82.0-99.0 fL] 82.3 fL (01/04/16 12:19 AM) MCH [27.0-32.0 pg] 26.3 pg *LOW* (01/04/16 12:19 AM) MCHC [32.0-36.0 gm/dL] 31.9 gm/dL *LOW* (01/04/16 12:19 AM) RDW [11.5-14.5 %] 16.1 % *HI* (01/04/16 12:19 AM) Platelet [150-400 10*3/uL] 202 10*3/uL (01/04/16 12:19 AM) MPV [9.4-12.4 fL] 9.5 fL (01/04/1619 AM) Immature Granulocytes [0.0-1.0 %] 0.7 % (01/04/16 AM) Neutrophils [51-75 %] 50 % *LOW* (01/04/1619 AM) Lymphocytes [20-46 %] 39 % (01/04/16: AM) Monocytes [4-11 %] 11 % (01/04/16 12: AM) Eosinophils [0-4 %] 0 % (01/04/16 AM) Basophils [0-2 %] 0 % (01/04/16: AM) Neutro Absolute [1.90-7.00 10*3] 3.56 10*3 (01/04/16:19 AM) Lymph Absolute [0.80-3.30 10*3] 2.79 10*3 (01/04/16: AM) Perkins Absolute [0.30-1.00 10*3] 0.75 10*3 (01/04/16 12:19 AM) Eos Absolute [0.00-0.50 10*3] 0.00 10*3 (01/04/16 12:19 AM) Baso Absolute [0.00-0.20 10*3] 0.02 10*3 (01/04/16 12: AM) Nucleated RBC Automated [0 /100 WBC] 0.0 /100 WBC (01/04/16: AM) Coagulation Most recent to oldest [Reference Range]: 1 INR [0.9-1.2] 1.1 (01/04/16: AM) PTT [25.0-35.0 seconds] 31.7 seconds (01/04/16:19 AM) Chemistry Most recent to oldest [Reference Range]: 1 Sodium Lvl [136-144 mEq/L] 137 mEq/L (01/04/16 AM) Potassium Lvl [3.6-5.1 mEq/L] 4.5 mEq/L (01/04/16:19 AM) Chloride [99-109 mEq/L] 103 mEq/L (01/04/16 AM) CO2 [22-32 mEq/L] 26 mEq/L (01/04/16: AM) AGAP [3-20] 8 (01/04/16: AM) BUN [4-20 mg/dL] 17 mg/dL (01/04/16 AM) Glucose Lvl [70-100 mg/dL] 184 mg/dL *HI* (01/04/16 AM) Creatinine Lvl [0.44-1.03 mg/dL] 0.90 mg/dL (01/04/16 AM) eGFR [>60] >60 1 (01/04/16: AM) Calcium Lvl [8.6-10.0 mg/dL] 8.7 mg/dL (01/04/16 AM) Sodium Venous [136-144 mEq/L] 140 mEq/L (01/04/16: AM) Potassium Venous [3.6-5.1 mEq/L] 4.5 mEq/L 2 (01/04/16 AM) Calcium Ionized Venous [1.19-1.41 mmol/L] 1.13 mmol/L *LOW* (01/04/16: AM) Total CO2 Venous [25-29 mEq/L] 28 mEq/L (01/04/16 AM) HGB Venous NPT [12.0-16.0 gm/dL] 11.9 gm/dL *LOW* (01/04/16: AM) HCT Venous [37.0-47.0 %] 35.0 % *LOW* (01/04/16: AM) Glucose Venous [70-100 mg/dL] 179 mg/dL *HI* (01/04/16: AM) BUN Venous [4-20] 22 *HI* (01/04/16: AM) Creatinine Venous [0.4-1.0 mg/dL] 0.9 mg/dL (01/04/16 AM) Venous CL [99-109 mEq/L] 102 mEq/L (01/04/16: AM) Anion Gap, Brendon [3-20] 10 (01/04/16: AM) Blood Glucose, Capillary [70-100 mg/dL] 159 mg/dL *HI* (01/06/16 12:39 PM) Chol [0-200 mg/dL] 119 mg/dL (01/05/16 3:35 AM) Trig [0-150 mg/dL] 91 mg/dL (01/05/16 3:35 AM) HDL [>40 mg/dL] 36 mg/dL *ABN* (01/05/16 3:35 AM) LDL [0-100 mg/dL] 65 mg/dL (01/05/16 3:35 AM) VLDL Cholesterol [0-30 mg/dL] 18 mg/dL (01/05/16 3:35 AM) Cardiac Risk [0.0-5.0] 3.3 (01/05/16 3:35 AM) U Beta hCG Ql Neg (01/04/16 1:10 AM) Troponin-POC Negative (01/04/16 12:25 AM) TSH with Reflex Free T4 [0.35-5.50] 3.01 (01/04/16 5:04 AM) Hgb A1c [4.1-5.6 %] 6.7 % *HI* (01/04/16 12:19 AM) eAvg Glucose 145.6 mg/dL (01/04/16 12:19 AM) 1Result Comment: Multiply eGFR results by 1.21 for race.2Result Comment: This test was performed on a whole blood specimen. The presence or absence of hemolysis cannot be assessed. Hemolysis can falsely elevate potassium levels. Normals are for venous specimens only.Urinalysis Most recent to oldest [Reference Range]: 1 UA Color Yellow (01/04/16 1:00 AM) UA Appear Clear (01/04/16 1:00 AM) UA pH [5.0-8.0] 7.0 (01/04/16 1:00 AM) UA Leuk Est [Negative] Negative (01/04/16 1:00 AM) UA Nitrite [Negative] Negative (01/04/16 1:00 AM) UA Protein [Negative] Negative (01/04/16 1:00 AM) UA Glucose [Negative] Negative (01/04/16 1:00 AM) UA Ketones [Negative] Negative (01/04/16 1:00 AM) UA Urobilinogen [<1.0] Negative (01/04/16 1:00 AM) UA Bili [Negative] Negative (01/04/16 1:00 AM) UA Blood [Negative] Negative (01/04/16 1:00 AM) UA Spec Grav [1.003-1.030] 1.015 (01/04/16 1:00 AM) Type Clean Catch (01/04/16 1:00 AM) Immunizations Vaccine Date Refusal Reason pneumococcal 23-polyvalent vaccine 06/20/15 Procedures Procedure Date Related Diagnosis Body Site Fusion Spine Cervical Anterior and Discectomy1 06/18/15 1auto-populated from documented surgical case Social History Social History Type Response Smoking Status Never smoker Assessment and Plan No data available for this section
--- OUTSIDE RECORDS SUMMARY | 2016-10-20 19:21 | External Medical Summary ---
:1975 Author Organization [employer] Care Team Providers Name Role Phone Em Camargo Provider Role Unavailable Allergies, Adverse Reactions, Alerts Substance Reaction Event Type aspirin Info Not Available Drug Allergy aspirin Info Not Available Drug Allergy codeine Info Not Available Drug Allergy codeine Info Not Available Drug Allergy Tegretol Info Not Available Drug Allergy Tegretol Info Not Available Drug Allergy strawberries Info Not Available Non Drug Allergy morphine Info Not Available Drug Allergy green melchor, nutrasweet, peanut, shell fish Info Not Available Non Drug Allergy morphine Info Not Available Drug Allergy strawberries Info [...] diabetes mellitus with E11.65 Active hyperglycemia Assessment Pain in left knee M25.562 Active Problem Lethargy R53.83 Active Problem Hypertension I10 Active Problem S/P cervical spinal fusion Z98.1 Active Problem Cervicalgia M54.2 Active Problem History of fall Z91.81 Active Problem Cervical spinal stenosis M48.02 Active Assessment Dysphagia R13.10 Active Assessment Cervicalgia M54.2 Active Assessment Hypertension I10 Active Assessment Visual impairment in both eyes H54.3 Active Assessment History of fall Z91.81 Active Assessment Insomnia G47.00 Active Assessment S/P cervical spinal fusion Z98.1 Active Assessment Bipolar disorder, current episode F31.5 Active depressed, severe, with psychotic features Assessment Cervical spinal stenosis M48.02 Active Assessment Chronic pain syndrome G89.4 Active Medications Medication Code Code Instructions Start End Status Dosage System Date Date Xarelto NDC 931258 10 mg orally once a 1 tab(s) day hydroxyzine NDC 81825 hydrochloride 25 mg 1 tab(s) orally TID gabapentin NDC 99537 600 mg orally 3 1 tab(s) times a day melatonin NDC 37397 3 mg orally once 1 tab(s) (at bedtime) NovoLog NDC 52593 100 units/mL 12 units subcutaneously TID with meals divalproex NDC 94728 500 mg orally BID 1 tab(s) sodium clozapine NDC 83885 25 mg orally qhs 2 tab(s) magnesium oxide NDC 77205 400 mg orally 4 2 tab(s) times per day for constipation esomeprazole NDC 22416 40 mg orally once a 1 cap(s) day Butrans NDC 637997 10 mcg/hr applied 1 PATCH topically once a week amlodipine NDC 13957 5 mg orally once a 1 tab(s) day Dilaudid NDC 3325 2 mg orally q3hr 1 tab(s) PRN Seroquel XR NDC 0 400 mg oral daily 1 Lantus NDC 07474 100 units/mL 16 units subcutaneously qhs Spiriva NDC 07070 18 mcg/cap DPI oral 1 capsule HandiHaler inhalation once inhaled daily daily (2 puffs) haloperidol NDC 69897 decanoate 100 mg/mL 0.2mL intramuscularly q (20mg) 30 days docusate sodium NDC 0 100 mg bid 1 cap Procedures Procedure Coding System Code Date Subseq Care-[facility] CPT-4 38638 August 11, 2015 Results No Known Results Summary Purpose [employer] Submission
--- OUTSIDE RECORDS SUMMARY | 2016-10-20 19:21 | External Medical Summary ---
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 Assessment Nausea R11.0 Jan, Active 761106724 2015 Problem Rheumatoid M06.9 Active 71092896 arthritis, involving unspecified site, unspecified rheumatoid factor presence Problem Insomnia G47.00 Active 690114097 Problem Pain in left knee M25.562 Active 879270633523443 Problem Chronic pain G89.4 Active 962779926 syndrome Problem Bipolar disorder, F31.5 Active 920040386 current episode depressed, severe, with psychotic features Problem Dysphagia R13.10 Active 42658212 Problem Cervicalgia M54.2 Active 97639635 Assessment Hospital Z09 Jan, Active 826782209 discharge 2016 follow-up Problem Visual impairment H54.3 Active 35650984 in both eyes Problem History of fall Z91.81 Active 881910412 Problem Lethargy R53.83 Active 429081216 Problem S/P cervical Z98.1 Active 676712093 spinal fusion Problem Type 2 diabetes E11.65 Active 478272738501836 mellitus with hyperglycemia Problem Cervical spinal M48.02 Active 70746984 stenosis Problem Hypertension I10 Active 45299369 ALLERGIES Substance Reaction Event Type Date Status morphine Unknown Drug Allergy Jan, Active aspirin Unknown Drug Allergy Jan, Active codeine Unknown Drug Allergy Jan, Active Tegretol Unknown Drug Allergy Jan, Active strawberries Unknown Non Drug Allergy Jan, Active green melchor, nutrasweet, peanut, shell Unknown Non Drug Allergy Jan, Active fish SOCIAL HISTORY No smoking Hx information available PLAN OF CARE VITAL SIGNS MEDICATIONS Medication Instructions Dosage Frequency Start End Duration Status Date Date Humalog 100 subcutaneously TID 22 u Active units/mL with meals Mobic 15 mg orally once a day 1 tab(s) 24h Active lorazepam 1 mg orally q6h prn 1 tab(s) Active panic lisinopril 5 mg orally once a day 1 tab(s) 24h Active divalproex orally qhs 2 tab(s) Active sodium 500 mg Proventil HFA inhaled 4 times a 2 puff(s) 6h Active CFC free 90 day mcg/inh Clozaril 100 mg orally qhs 1 tab(s) Active Senna S 50 orally once a day 2 tab(s) Active mg-8.6 mg (at bedtime) Spiriva oral inhalation 1 capsule 24h Active HandiHaler 18 once daily inhaled mcg/cap DPI daily (2 puffs) magnesium oxide orally 4 times per 2 tab(s) Active 400 mg day for constipation Levemir 100 subcutaneously 10 u 24h Active units/mL daily melatonin 3 mg orally once (at 1 tab(s) Active bedtime) gabapentin 600 orally 4x day 1 tab(s) Active mg Seroquel XR 400 oral daily 1 24h Active mg haloperidol intramuscularly 0,2ml Active decanoate 100 every 4 weeks mg/mL esomeprazole 40 orally once a day 1 cap(s) 24h Active mg vortioxetine 10 orally once a day 1 tab(s) 24h Active mg Zofran 4 mg orally qam routine 1 tab(s) Feb, Butrans 10 applied topically 1 PATCH Active mcg/hr once a week Vistaril pamoate orally tid 1 cap(s) 8h Active 50 mg RESULTS No Results PROCEDURES Procedure Date Ordered Related Diagnosis Body Site Subseq [facility] Jan 24, 2016 IMMUNIZATIONS No Known Immunizations
--- OUTSIDE RECORDS SUMMARY | 2016-10-20 19:22 | External Medical Summary | Referral Summary ---
:1975 Author Organization [facility] Address [address] [place] [address] Care Team Providers Name Role Phone No PCP, Pt States Primary Care Physician Encounter [facility] [phone] Date(s): 06/16/15 - 06/22/[address] [address] Discharge Diagnosis: Morbid obesity Discharge Diagnosis: Hyponatremia Discharge Diagnosis: Cervicalgia Discharge Diagnosis: Chronic lumbar pain Discharge Diagnosis: Cervical spinal stenosis, ACDF 06/18/15 Discharge Diagnosis: Acute hypoxemic respiratory failure Discharge Diagnosis: Fall from standing Discharge Diagnosis: Dysphagia Discharge Diagnosis: Homelessness Discharge Diagnosis: Visual impairment in both eyes Discharge Diagnosis: Suicide ideation Discharge Diagnosis: Hyperglycemia due to type 2 diabetes mellitus Discharge Diagnosis: Urinary retention Discharge Diagnosis: Diabetes mellitus Discharge Disposition: 62-Inpatient Rehab Facility Attending Physician: Kamari Musa MD Admitting Physician: Kamari Musa MD Vital Signs Most recent to oldest [Reference Range]: 1 Temperature Oral [35.8-37.3 degC] 36.7 degC (06/22/15 12:27 PM) Temperature Temporal Artery [36.3-37.8 degC] 36.7 degC (06/20/15 4:00 PM) Peripheral Pulse Rate [60-100 bpm] 78 bpm (06/22/15 1:29 PM) Heart Rate Monitored [60-100 bpm] 85 bpm (06/22/15 12:27 PM) Respiratory Rate [14-20 br/min] 20 br/min (06/22/15 12:27 PM) Blood Pressure [90-140/60-90 mmHg] 140/95 mmHg (06/22/15 1:29 PM) Mean Arterial Pressure, Cuff 136 mmHg (06/22/15 12:27 PM) Pulse Rate [60-100 bpm] 112 bpm *HI* (06/22/15 10:00 AM) SpO2 95 % (06/22/15 12:27 PM) Problem List Condition Effective Dates Status Health Status Informant Acute pain(Confirmed) Active At risk for infection(Confirmed)1 Active At risk for injury(Confirmed)2 Active At risk of pressure sore(Confirmed) Active Bipolar 1 disorder(Confirmed) Active patient Depression(Confirmed) Active patient DM (diabetes mellitus)(Confirmed) Active patient HTN (hypertension)(Confirmed) Active patient Knowledge deficit(Confirmed)3 Active RA (rheumatoid arthritis)(Confirmed) Active patient Self -care deficit(Confirmed)4 Active 1Problem added automatically by system based on initiation of At Risk for Infection in Nutrition Planof [id number] added automatically by system based on initiation of Risk for Injury Plan of [id number] added automatically by system based on initiation of Knowledge Deficit Plan of [id number] added automatically by system based on initiation of Self Care Deficit Plan of Care Allergies, Adverse Reactions, Alerts Substance Reaction Severity Status aspirin Active codeine Active Green Beans Active Kiwi Active morphine hives Active shortness of air Nutrasweet throat swelling Active Peanuts Active penicillin Active shellfish Active Strawberries Active TEGretol Active Medications acetaminophen 325 mg oral tablet 650 mg 2 tabs, Oral, q4hr, Pain Mild (1-3), 0 Refill(s) Start Date: 06/22/15 Status: OrderedColace 100 mg oral capsule 100 mg 1 caps, Oral, BID, 0 Refill(s) Start Date: 06/22/15 Status: OrderedCombivent Respimat CFC free 20 mcg-100 mcg/inh inhalation aerosol 1 puffs, Inhalation, QID, # 4 g, 0 Refill(s) Start Date: 06/16/15 Status: Ordereddexamethasone 4 mg oral tablet 4 mg 1 tabs, Oral, TID, on 06-25-15 decrease to 2mg TID, x3days decrease to BID, X3 days decrease to 1mg [id number], decrease to daily X3 days then stop, 0 Refill (s) Start Date: 06/22/15 Status: OrderedDilaudid 2 mg oral tablet 4 mg 2 tabs, Oral, q3hr, Pain - Breakthrough, 0 Refill(s) Start Date: 06/22/15 Status: OrdereddiphenhydrAMINE 25 mg oral tablet 25 - 50 mg, Oral, q6hr, Pruritus/Itching, 0 Refill(s) Start Date: 06/22/15 Status: Ordereddivalproex sodium 500 mg oral tablet, extended release 500 mg 1 tabs, Oral, BID, 0 Refill(s) Start Date: 06/16/15 Status: OrderedDulcolax Laxative 5 mg oral delayed release tablet 5 mg 1 tabs, Oral, Daily, Constipation, 0 Refill(s) Start Date: 06/22/15 Status: Orderedgabapentin 600 mg oral tablet 600 mg 1 tabs, Oral, TID, 0 Refill(s) Start Date: 06/16/15 Status: OrderedhydrOXYzine pamoate 25 mg oral capsule 25 mg 1 caps, Oral, TID, 0 Refill(s) Start Date: 06/16/15 Status: Orderedinsulin aspart 100 units/mL subcutaneous solution Sliding Scale High, SubCutaneous, As Indicated, Hyperglycemia/High Blood Sugar, accu check fasting and 2 hours PC, 0 Refill(s) Start Date: 06/22/15 Status: OrderedLORazepam 1 mg oral tablet 1 mg 1 tabs, Oral, TID, as needed for anxiety, 0 Refill(s) Start Date: 06/16/15 Status: Orderedmagnesium oxide 400 mg (241.3 mg elemental magnesium) oral tablet 800 mg 2 tabs, Oral, QID, 0 Refill(s) Start Date: 06/22/15 Status: OrderedMilk of Magnesia 2,400 mg 30 mL, Oral, Daily, Constipation, 0 Refill(s) Start Date: 06/22/15 Status: Orderednitrofurantoin macrocrystals-monohydrate 100 mg oral capsule 100 mg 1 caps, Oral, BID, please check UA 5 days after last dose, 0 Refill(s) Start Date: 06/22/15 Stop Date: 06/27/15 Status: OrderedNorvasc 5 mg oral tablet 5 mg 1 tabs, Oral, Daily, 0 Refill(s) Start Date: 06/22/15 Status: OrderedSEROquel XR 400 mg oral tablet, extended release 400 mg 1 tabs, Oral, qPM, 0 Refill(s) Start Date: 06/16/15 Status: OrderedUltram 50 mg oral tablet 1-2 tabs, Oral, q4hr, Pain Moderate (4-6), 0 Refill(s) Start Date: 06/22/15 Status: OrderedUnisom 50 mg, Oral, Bedtime (once a day), 0 Refill(s) Start Date: 06/02/15 Status: OrderedXarelto 10 mg oral tablet 10 mg 1 tabs, Oral, Daily, 0 Refill(s) Start Date: 06/22/15 Status: OrderedZofran 4 mg oral tablet 4 mg 1 tabs, Oral, q6hr, Nausea, 0 Refill(s) Start Date: 06/22/15 Status: Ordered Results Hematology Most recent to oldest [Reference Range]: 1 WBC [4.8-10.8 10*3/uL] 8.2 10*3/uL (06/22/15 5:25 AM) RBC [4.00-5.20] 4.06 (06/22/15 5:25 AM) Hgb [12.0-16.0 gm/dL] 12.2 gm/dL (06/22/15 5:25 AM) Hct [37.0-47.0 %] 36.1 % *LOW* (06/22/15 5:25 AM) MCV [82.0-99.0 fL] 88.9 fL (06/22/15 5:25 AM) MCH [27.0-32.0 pg] 30.0 pg (06/22/15 5:25 AM) MCHC [32.0-36.0 gm/dL] 33.8 gm/dL (06/22/15 5:25 AM) RDW [11.5-14.5 %] 14.1 % (06/22/15 5:25 AM) Platelet [150-400 10*3/uL] 150 10*3/uL (06/22/15 5:25 AM) MPV [9.4-12.4 fL] 11.2 fL (06/22/15 5:25 AM) Chemistry Most recent to oldest [Reference Range]: 1 Sodium Lvl [136-144 mEq/L] 132 mEq/L *LOW* (06/22/15 5:25 AM) Potassium Lvl [3.6-5.1 mEq/L] 3.8 mEq/L (06/22/15 5:25 AM) Chloride [99-109 mEq/L] 98 mEq/L *LOW* (06/22/15 5:25 AM) CO2 [22-32 mEq/L] 26 mEq/L (06/22/15 5:25 AM) AGAP [3-20] 8 (06/22/15 5:25 AM) BUN [4-20 mg/dL] 11 mg/dL (06/22/15 5:25 AM) Glucose Lvl [70-100 mg/dL] 221 mg/dL *HI* (06/22/15 5:25 AM) Creatinine Lvl [0.44-1.03 mg/dL] 0.69 mg/dL (06/22/15 5:25 AM) eGFR [>60] >60 1 (06/22/15 5:25 AM) Calcium Lvl [8.6-10.0 mg/dL] 8.4 mg/dL *LOW* (06/22/15 5:25 AM) Albumin Lvl [3.5-4.8 gm/dL] 2.7 gm/dL *LOW* (06/22/15 5:25 AM) Magnesium Lvl [1.8-2.5 mg/dL] 1.5 mg/dL *LOW* (06/22/15 5:25 AM) Phosphorus [2.4-4.7 mg/dL] 2.5 mg/dL 2 (06/22/15 5:25 AM) Calcium Ionized [1.19-1.41 mmol/L] 1.09 mmol/L *LOW* (06/20/15 3:28 AM) Blood Glucose, Capillary [74-106 mg/dL] 332 mg/dL *HI* (06/22/15 3:05 PM) Beta hCG Qnt <1 mIU/mL 3 (06/16/15 5:47 PM) 1Result Comment: Multiply eGFR results by 1.21 for race.2Result Comment: High dosages of liposomal Amphotericin B (AmBisome) therapy or other drug preparations that use a liposomal envelope to facilitate drug delivery may cause falsely elevated results for phosphorus.3Result Comment: Normal Ranges for Quantitative Beta-HCG are as follows: Non- Females: 0 - 5 Gestation Wks 95% Range 0.2 - 1 4 - 50 1 - 2 50 - 500 2 - 3 100 - 5000 3 - 4 500 - 10,000 4 - 5 1,000 - 50,000 5 - 6 10,000 - 100,000 6 - 8 15,000 - 200,000 8 - 12 10,000 - 100,000Toxicology Most recent to oldest [Reference Range]: 1 Ethanol Lvl Not Detected (06/16/15 5:47 PM) Urinalysis Most recent to oldest [Reference Range]: 1 UA Color Yellow (06/21/15 11:54 AM) UA Appear Sl Cloudy (06/21/15 11:54 AM) UA pH [5.0-8.0] 7.0 (06/21/15 11:54 AM) UA Leuk Est [Negative] Pos 1+ *ABN* (06/21/15 11:54 AM) UA Nitrite [Negative] Positive *ABN* (06/21/15 11:54 AM) UA Protein [Negative] Negative (06/21/15 11:54 AM) UA Glucose [Negative] Pos 3+ *ABN* (06/21/15 11:54 AM) UA Ketones [Negative] Pos 1+ *ABN* (06/21/15 11:54 AM) UA Urobilinogen [<1.0] Negative (06/21/15 11:54 AM) UA Bili [Negative] Negative (06/21/15 11:54 AM) UA Blood [Negative] Pos 1+ *ABN* (06/21/15 11:54 AM) UA Spec Grav [1.003-1.030] 1.030 (06/21/15 11:54 AM) Type Amaya (06/21/15 11:54 AM) UA WBC [0-4] 20-50 *ABN* (06/21/15 11:54 AM) UA RBC [0-2] 10-20 *ABN* (06/21/15 11:54 AM) Epithelial Cells 0-2 (06/21/15 11:54 AM) UA Bacteria Occasional *ABN* (06/21/15 11:54 AM) Microbiology Reports TEST:Urine Culture STATUS:Order in Progress BODY SITE: SOURCE:Urine COLLECTED DATE/TIME:06/21/15 11:54 AMUrine Culture- - - - - - - Positive urine culture (even if >100,000 cfu/ml) without presence of symptoms does not require antibiotic treatment unless the patient is or undergoing urinary surgery. Please document as bacteriuria. Escherichia coli >100,000 cfu/ml Enterococcus species 10-50,000 cfu/ml ORGANISM:Escherichia coliORGANISM:Enterococcus species Immunizations Vaccine Date Refusal Reason pneumococcal 23-polyvalent vaccine 06/20/15 Procedures Procedure Date Related Diagnosis Body Site Fusion Spine Cervical Anterior and Discectomy1 06/18/15 1auto-populated from documented surgical case Social History Social History Type Response Smoking Status Never smoker Assessment and Plan No data available for this section
--- OUTSIDE RECORDS SUMMARY | 2016-10-20 19:22 | External Medical Summary | Summary of Care ---
:1975 Author Name Camron Aleman M.D. Address [address] [place], [place] [id number] Care Team Providers Name Role Phone PCP Assignment in Process Primary Care Provider Unavailable Functional Status Functional Status Health Issues Name Dates Details Functional status health issues are not documented Status: Cognitive Status Health Issues Name Dates Details Cognitive status health issues are not documented Status: Problems Name Dates Details Bipolar depression (296.50, F31.30) Status: Active Uncontrolled diabetes mellitus (250.02, E11.65) Status: Active Medications Name Dates Details Medication not documented Allergies and Adverse Reactions Name Dates Details Allergy history not documented Status: Procedures Procedure Dates Details Procedures not documented Immunization Name Dates Details Immunizations not documented Social History Name Dates Details Smoking StatusNever smoker Vital Signs Date Test Result Details 14:45 BP Systolic 134 mm[Hg] Status: BP Diastolic 90 mm[Hg] Status: Heart Rate 68 /min Status: Respiration Rate 20 /min Status: Results Date Description Value Details Results not documented Plan of Care Planned Observations Name Dates Details Planned Goals not documented Goal Instructions Instructions not documented Encounters Appointment; Robby Aleman On Encounter Diagnosis: Problem not documented 15:00
--- OUTSIDE RECORDS SUMMARY | 2016-10-20 19:22 | External Medical Summary ---
[...] Status Dosage System Date Date amlodipine NDC 69117 5 mg orally once a 1 tab(s) day esomeprazole NDC 51437 40 mg orally once a 1 cap(s) day Butrans NDC 786727 10 mcg/hr applied 1 PATCH topically once a week Spiriva NDC 50884 18 mcg/cap DPI oral 1 capsule HandiHaler inhalation once inhaled daily daily (2 puffs) Xarelto NDC 255365 10 mg orally once a 1 tab(s) day Tresiba NDC 0121056 100 units/mL SC 30 units Daily gabapentin NDC 61863 600 mg orally 3 1 tab(s) times a day Clozaril NDC 420 100 mg orally qhs 1 tab(s) divalproex NDC 53047 500 mg orally BID 1 tab(s) sodium metformin NDC 27746 500 mg orally 2 Nov 14, 1 tab(s) times a day 2015 NovoLog NDC 58756 100 units/mL 22 units subcutaneously TID with meals haloperidol NDC 55100 decanoate 100 mg/mL 0,2ml intramuscularly every 4 weeks Senna S NDC 30197 50 mg-8.6 mg orally 2 tab(s) once a day (at bedtime) melatonin NDC 29210 3 mg orally once 1 tab(s) (at bedtime) magnesium oxide NDC 64819 400 mg orally 4 2 tab(s) times per day for constipation Tresiba NDC 5440602 100 units/mL SC 24 units Daily Seroquel XR NDC 0 400 mg oral daily 1 Vistaril NDC 965 pamoate 50 mg 1 cap(s) orally tid docusate sodium NDC 0 100 mg bid 1 cap Procedures Procedure Coding System Code Date Subseq Care-Minor CPT-4 31108 Nov 01, 2015 Vital Signs Date/Time: Nov 01, 2015 Temperature 98.0 F Blood Pressure Diastolic 92 mm Hg Blood Pressure Systolic 138 mm Hg BMI 51.75 Index Height 60 in Weight 265 lbs Pulse 90 /min Cardiac Monitoring Heart Rate 18 /min Results No Known Results Summary Purpose eClinicalWorks Submission
--- OUTSIDE RECORDS SUMMARY | 2016-10-20 19:22 | External Medical Summary | Continuity Of Care Document ---
:1975 Author Organization [facility] Address [address] [place] [address] Phone Care Team Providers Name Role Phone BETO MARTINS MD Primary Care Provider UNASSIGNED, ED PHYSICIAN Unavailable Unavailable HINA HENRY MD Unavailable NON STAFF, PROVIDER Unavailable Unavailable FALGUNI BOJORQUEZ MD Attending Provider Results Lab Results Visit/Account #[id number] (August 09, 2014 11:49pm - August 10, 2014 4:41am) Test Result Date/Time POCGL POCGL(70-105 MG/DL) 382 MG/DL August 10, 2014 4:03am 09529-6: COMPLETE BLOOD COUNT WITH DIFF WHITE BLOOD COUNT(4.0-11.0 10E3/UL) 10.2 10E3/UL August 10, 2014 2:25am RED BLOOD COUNT(4.00-5.20 10E6/UL) 4.63 10E6/UL August 10, 2014 2:25am HEMOGLOBIN(12.0-16.0 G/DL) 13.9 G/DL August 10, 2014 2:25am HEMATOCRIT(36.0-46.0 %) 39.9 % August 10, 2014 2:25am MEAN CORPUSCULAR VOLUME(82.0-100.0 FL) 86.2 FL August 10, 2014 2:25am 95895-6: MEAN CORPUSCULAR HEMOGLOBIN(26.0-34.0 PG) 30.0 PG August 10, 2014 2: 25am MEAN CORPUSCULAR HGB CONC(31.5-36.5 G/DL) 34.8 G/DL August 10, 2014 2:25am RED CELL DISTRIBUTION WIDTH(11.5-14.5 %) 12.9 % August 10, 2014 2:25am 777-3: PLATELET COUNT(150-450 10E3/UL) 183 10E3/UL August 10, 2014 2:25am MEAN PLATELET VOLUME(8.2-12.4 FL) 10.9 FL August 10, 2014 2:25am 770-8: NEUTROPHILS % (AUTO)(40-70 %) 68 % August 10, 2014 2:25am LYMPHOCYTES % (AUTO)(15-45 %) 22 % August 10, 2014 2:25am 5905-5: MONOCYTES % (AUTO)(2-10 %) 7 % August 10, 2014 2:25am 713-8: EOSINOPHILS % (AUTO)(0-6 %) 2 % August 10, 2014 2:25am 706-2: BASOPHILS % (AUTO)(0-1 %) 1 % August 10, 2014 2:25am 84365-0: IMMATURE GRANS % (AUTO)(0-0 %) 1 % August 10, 2014 2:25am NUCLEATED RBCS (AUTO)(0-0 %) 0 % August 10, 2014 2:25am 751-8: NEUTROPHILS # (AUTO)(2.5-7.5 10E3/UL) 6.9 10E3/UL August 10, 2014 2:25am 02459-3: LYMPHOCYTES # (AUTO)(1.0-4.0 10E3/UL) 2.3 10E3/UL August 10, 2014 2: 25am 742-7: MONOCYTES # (AUTO)(0.2-0.8 10E3/UL) 0.7 10E3/UL August 10, 2014 2:25am 711-2: EOSINOPHILS # (AUTO)(0.0-0.4 10E3/UL) 0.2 10E3/UL August 10, 2014 2:25am 704-7: BASOPHILS # (AUTO)(0.0-0.2 10E3/UL) 0.1 10E3/UL August 10, 2014 2:25am IMMATURE GRANS # (AUTO)(0.0-0.0 10E3/UL) 0.1 10E3/UL August 10, 2014 2:25am DIFF TYPE AUTOMATED August 10, 2014 2:25am 10644-1: URINALYSIS WITH MICROSCOPIC 5778-6: COLOR,URINE YELLOW August 10, 2014 12:30am 13174-7: CLARITY,URINE CLEAR August 10, 2014 12:30am GLUCOSE, URINE(NEGATIVE MG/DL) Greater than or equal to 1000 MG/DL August 10, 2014 12:30am URINE BILIRUBIN(NEGATIVE) NEGATIVE August 10, 2014 12:30am 39186-6: KETONES,URINE(NEGATIVE MG/DL) NEGATIVE MG/DL August 10, 2014 12:30am 2965-2: URINE SPECIFIC GRAVITY(1.001-1.035) Less than or equal to 1.005 August 10, 2014 12:30am 22535-1: URINE BLOOD(NEGATIVE) TRACE-INTA August 10, 2014 12:30am 2756-5: URINE PH(5.0-9.0) 6.0 August 10, 2014 12:30am URINE PROTEIN(Less than 20 MG/DL) NEGATIVE MG/DL August 10, 2014 12:30am URINE UROBILINOGEN(0.2-1.0 MG/DL) 0.2 MG/DL August 10, 2014 12:30am URINE NITRITE(NEGATIVE) NEGATIVE August 10, 2014 12:30am 5799-2: LEUKOCYTE ESTERASE ,URINE(NEGATIVE) SMALL August 10, 2014 12:30am URINE MICROSCOPIC REQUIRED YES August 10, 2014 12:30am URINE WBCS(/HPF) 4-7 /HPF August 10, 2014 12:30am 15103-2: URINE RBCS(/HPF) 0-3 /HPF August 10, 2014 12:30am 60695-3: URINE EPITHELIAL CELLS(/HPF) 0-3 /HPF August 10, 2014 12:30am BACTERIA,URINE(/HPF) TRACE /HPF August 10, 2014 12:30am URINE CRYSTALS(/HPF) NONE SEEN /HPF August 10, 2014 12:30am URINE CASTS(/LPF) NONE SEEN /LPF August 10, 2014 12:30am URINE COMMENTS NONE August 10, 2014 12:30am 83609-0: COMPLETE METABOLIC PROFILE 15329-2: GLUCOSE(70-110 MG/DL) 463 MG/DL August 10, 2014 2:25am BLOOD UREA NITROGEN(6-20 MG/DL) 20 MG/DL August 10, 2014 2:25am 49471-0: CREATININE(0.50-1.20 MG/DL) 0.92 MG/DL August 10, 2014 2:25am 35898-4: EST GLOMERULAR FILTRATION RATE(Greater than or equal to 60) Greater than or equal to 60 August 10, 2014 2:25am Result Comments: If the patient is of -[place] descent/extraction multiply the eGFR value by 1.212 to obtain the actual eGFR. >=60 mg/dL Normal 30-59 mg/dL Moderate Kidney Disease 15-29 mg/dL Severe Kidney Disease <15 mg/dL Kidney Failure BUN CREATININE RATIO(10.0-20.0 RATIO) 22.0 RATIO August 10, 2014 2:25am 58117-3: SODIUM(135-145 MMOL/L) 134 MMOL/L August 10, 2014 2:25am 67479-0: POTASSIUM(3.6-5.0 MMOL/L) 3.5 MMOL/L August 10, 2014 2:25am 85930-7: CHLORIDE(101-111 MMOL/L) 98 MMOL/L August 10, 2014 2:25am 8-9: CO2(21-31 MMOL/L) 23.0 MMOL/L August 10, 2014 2:25am 24857-9: ANION GAP(8-18) 17 August 10, 2014 2:25am OSMO CALCULATED(270.0-290.0) 291.1 August 10, 2014 2:25am CALCIUM(8.5-10.5 MG/DL) 10.4 MG/DL August 10, 2014 2:25am BILIRUBIN,TOTAL(0.1-1.2 MG/DL) 0.4 MG/DL August 10, 2014 2:25am ALKALINE PHOSPHATASE(42-121 IU/L) 104 IU/L August 10, 2014 2:25am ASPARTATE AMINO TRANSFERASE(10-42 IU/L) 43 IU/L August 10, 2014 2:25am ALANINE AMINOTRANSFERASE(10-60 IU/L) 35 IU/L August 10, 2014 2:25am 65273-4: TOTAL PROTEIN(6.4-8.2 G/DL) 8.1 G/DL August 10, 2014 2:25am ALBUMIN(3.5-5.5 G/DL) 3.6 G/DL August 10, 2014 2:25am 2336-6: GLOBULIN(2.4-3.6) 4.5 August 10, 2014 2:25am ALBUMIN/GLOBULIN RATIO(0.9-1.8 RATIO) 0.8 RATIO August 10, 2014 2:25am Allergies and Adverse Reactions Allergies and Adverse Reactions Patient Unit Number: [id number] Agent Type Reaction Severity Status IODINATED CONTRAST [...] Active METAPROTERENOL Drug Allergy Unknown Unknown Active PROMETHAZINE Drug Allergy Unknown Severe Active METFORMIN Drug Allergy Unknown Moderate Active OXCARBAZEPINE Drug Allergy RASH, DIFFICULTY BREATHING Severe Active LEVOFLOXACIN Drug Allergy Unknown Unknown Active GREEN BEANS Allergy Unknown Unknown Active KIWI Allergy Unknown Unknown Active NUTRI SWEET Allergy N/V, ITCHING Mild Active STRAWBERRIES Allergy Unknown Unknown Active Problem List Problem List Visit/Account #[id number] (August 09, 2014 11:49pm - August 10, 2014 4:41am) Acute Problems: Code/Condition Comments Documented Start Date Documented Resolved Code(s) Date Back pain ICD10: M54.9 Back pain ICD9: 724.5 Back pain SNOMED: 833715936 Back pain Plan of Care Plan Of Care Visit/Account #[id number] (August 09, 2014 11:49pm - August 10, 2014 4:41am) Patient Instructions Take tylenol over the counter as directed for pain. Make sure you take your insulin as prescribed. Drink plenty of fluids. Return if symptoms worsen. Vital Signs Vital Signs Visit/Account #[id number] (August 09, 2014 11:49pm - August 10, 2014 4:41am) Sign First Result Last Result Code(s) Temperature in Fahrenheit Temperature (Fahrenheit): 98.3 [degF] On August 09, 2014 11:47pm Temperature (Fahrenheit): 98.0 [degF] On August 10, 2014 4:41am 8310-5 Body Temperature Weight in Kilograms Weight (Kilograms): 113.6 kg On August 09, 2014 11:47pm 3141-9 Weight Measured 62795-9 Body weight measured in kilograms Functional Status Functional and Cognitive Status No Functional Status Data Medications Inpatient/Ordered Medications - Medications administered during hospital visit Visit/Account #[id number] (August 09, 2014 11:49pm - August 10, 2014 4:41am) Medication Route Sig/Schedule Precondition/Indication Comments/ Instructions Codes NORFLEX INJ(ORPHENADRINE CITRATE) 60 MG/2 ML INJECTION INTRAMUSC NOW Rx Order Comments: Orphenadrine Citrate 30 MG/ML Injectable Solution (RxNorm): 899081 Dose: 2 ML Order placed as verified: Dose Warnings differ from service order clerk NORFLEX INJ (ORPHENADRINE CITRATE) NDC: 51626093285 IV Medication INTRAVEN .Q1H (Rate: 1000 MLS/HR Duration: 1 HR) Rx Order Comments: Carriers: Order placed as verified: Carriers: Dose Warnings differ from service order clerk Sodium Chloride 0.154 MEQ/ML Injectable Solution (RxNorm): 182608 NORMAL SALINE(SODIUM CHLORIDE) 1000 ML INJECTION NORMAL SALINE ( SODIUM CHLORIDE) NDC: 10470412944 Dose: 1000 ML HumuLIN-R (ER/AMBS PYX)(INSULIN HUM R) 100 UNIT/ML INJECTION SUBCUTANEOUSLY NOW Rx Order Comments: Regular Insulin, Human 100 UNT/ML Injectable Solution [Novolin R] (RxNorm): [id number] Dose: 0.15 ML Order placed as verified: Dose Warnings differ from service order clerk HumuLIN-R (ER/AMBS PYX) ( INSULIN HUM R) NDC: 24586884695 Label Comments: GIVE 30 MINUTES BEFORE A MEAL DOCUMENT SITE OF INJECTION History Of Encounters Encounters Visit/Account #[id number] (August 09, 2014 11:49pm - August 10, 2014 4:41am) Account Physican Of Reason For Visit Diagnosis Start Date/Time Stop Date/ Time Status Record Visit ER FALGUNI BOJORQUEZ MD TRIPPED OVER BREAD Not Available Aug 09, 2014 11: 49pm Aug 10, 2014 4:41am History of Procedures Procedure List No procedures recorded. Discharge Instructions Discharge Instructions Visit/Account #[id number] (August 09, 2014 11:49pm - August 10, 2014 4:41am) DISCHARGE INSTRUCTIONS Physician Documentation Social History Social History No Social History Data. Immunizations Immunizations Patient Unit Number: [id number] Immunizations No immunizations recorded.
--- OUTSIDE RECORDS SUMMARY | 2016-10-20 19:22 | External Medical Summary ---
[...] Start End Status Dosage System Date Date Seroquel XR NDC 0 400 mg oral daily 1 haloperidol NDC 25260 decanoate 100 mg/mL 0.2mL intramuscularly q (20mg) 30 days esomeprazole NDC 60174 40 mg orally once a 1 cap(s) day docusate sodium NDC 0 100 mg bid 1 cap Butrans NDC 501973 10 mcg/hr applied 1 PATCH topically once a week hydroxyzine NDC 94920 hydrochloride 25 mg 1 tab(s) orally TID Dilaudid NDC 3325 2 mg orally q3hr 1 tab(s) PRN melatonin NDC 12040 3 mg orally once 1 tab(s) (at bedtime) clozapine NDC 39674 25 mg orally qhs 2 tab(s) amlodipine NDC 39734 5 mg orally once a 1 tab(s) day divalproex NDC 38731 500 mg orally BID 1 tab(s) sodium Xarelto NDC 879153 10 mg orally once a 1 tab(s) day Lantus NDC 97977 100 units/mL 20 units subcutaneously qhs Spiriva NDC 88288 18 mcg/cap DPI oral 1 capsule HandiHaler inhalation once inhaled daily daily (2 puffs) gabapentin NDC 83159 600 mg orally 3 1 tab(s) times a day magnesium oxide NDC 58515 400 mg orally 4 2 tab(s) times [place] [address] 100 units/mL 16 units subcutaneously TID with meals Procedures Procedure Coding System Code Date Subseq Care-Minor CPT-4 06962 August 19, 2015 Vital Signs Date/Time: August 19, 2015 Temperature 97.8 F Blood Pressure Diastolic 70 mm Hg Blood Pressure Systolic 136 mm Hg BMI 48.82 Index Height 60 in Weight 250 lbs Pulse 70 /min Cardiac Monitoring Heart Rate 18 /min Results No Known Results Summary Purpose eClinicalWorks Submission
--- OUTSIDE RECORDS SUMMARY | 2016-10-20 19:22 | External Medical Summary | Continuity Of Care Document ---
:1975 Author Organization [facility] Address [address] [place] [address] Phone Care Team Providers Name Role Phone BETO MARTINS MD Unavailable UNASSIGNED, ED PHYSICIAN Unavailable Unavailable LISY SAUCEDA DO Unavailable FALGUNI BOJORQUEZ MD Attending Provider Results Lab Results Visit/Account #[id number] (November 11, 2014 10:07pm - November 12, 2014 1: 15am) Test Result Date/Time 73623-4: COMPLETE BLOOD COUNT WITH DIFF WHITE BLOOD COUNT(4.0-11.0 10E3/UL) 6.2 10E3/UL November 11, 2014 11:50pm RED BLOOD COUNT(4.00-5.20 10E6/UL) 4.08 10E6/UL November 11, 2014 11:50pm HEMOGLOBIN(12.0-16.0 G/DL) 11.3 G/DL November 11, 2014 11:50pm HEMATOCRIT(36.0-46.0 %) 34.2 % November 11, 2014 11:50pm MEAN CORPUSCULAR VOLUME(82.0-100.0 FL) 83.8 FL November 11, 2014 11:50pm 85747-7: MEAN CORPUSCULAR HEMOGLOBIN(26.0-34.0 PG) 27.7 PG November 11, 2014 11:50pm MEAN CORPUSCULAR HGB CONC(31.5-36.5 G/DL) 33.0 G/DL November 11, 2014 11: 50pm RED CELL DISTRIBUTION WIDTH(11.5-14.5 %) 16.5 % November 11, 2014 11:50pm 777-3: PLATELET COUNT(150-450 10E3/UL) 160 10E3/UL November 11, 2014 11:50pm MEAN PLATELET VOLUME(8.2-12.4 FL) 10.9 FL November 11, 2014 11:50pm 770-8: NEUTROPHILS % (AUTO)(40-70 %) 54 % November 11, 2014 11:50pm LYMPHOCYTES % (AUTO)(15-45 %) 28 % November 11, 2014 11:50pm 5905-5: MONOCYTES % (AUTO)(2-10 %) 10 % November 11, 2014 11:50pm 713-8: EOSINOPHILS % (AUTO)(0-6 %) 7 % November 11, 2014 11:50pm 706-2: BASOPHILS % (AUTO)(0-1 %) 1 % November 11, 2014 11:50pm 34706-6: IMMATURE GRANS % (AUTO)(0-0 %) 0 % November 11, 2014 11:50pm NUCLEATED RBCS (AUTO)(0-0 %) 0 % November 11, 2014 11:50pm 751-8: NEUTROPHILS # (AUTO)(2.5-7.5 10E3/UL) 3.4 10E3/UL November 11, 2014 11:50pm 57677-7: LYMPHOCYTES # (AUTO)(1.0-4.0 10E3/UL) 1.8 10E3/UL November 11, 2014 11:50pm 742-7: MONOCYTES # (AUTO)(0.2-0.8 10E3/UL) 0.6 10E3/UL November 11, 2014 11: 50pm 711-2: EOSINOPHILS # (AUTO)(0.0-0.4 10E3/UL) 0.4 10E3/UL November 11, 2014 11:50pm 704-7: BASOPHILS # (AUTO)(0.0-0.2 10E3/UL) 0.0 10E3/UL November 11, 2014 11: 50pm IMMATURE GRANS # (AUTO)(0.0-0.0 10E3/UL) 0.0 10E3/UL November 11, 2014 11: 50pm DIFF TYPE AUTOMATED November 11, 2014 11:50pm 52401-0: PROTHROMBIN TIME WITH INR PROTHROMBIN TIME(12.1-14.0 SEC) 13.6 SEC November 11, 2014 11:50pm 15697-6: INR 1.03 November 11, 2014 11:50pm Result Comments: INR reference interval applies to patients on anticoagulant therapy. Suggested INR therapeutic range for oral anticoagulant therapy: (Stabilized anticoagulated patients) Routine Therapy: 2.0 to 3.0 Recurrent Myocardial Infarction: 2.5 to 3.5 Mechanical Prosthetic Valves: 2.5 to 3.5 UA WITH SCREEN FOR CULTURE 5778-6: COLOR,URINE YELLOW November 12, 2014 12:50am 73633-7: CLARITY,URINE SL CLOUDY November 12, 2014 12:50am GLUCOSE, URINE(NEGATIVE MG/DL) Greater than or equal to 1000 MG/DL November 12, 2014 12:50am URINE BILIRUBIN(NEGATIVE) NEGATIVE November 12, 2014 12:50am 37546-9: KETONES,URINE(NEGATIVE MG/DL) TRACE MG/DL November 12, 2014 12:50am 2965-2: URINE SPECIFIC GRAVITY(1.001-1.035) 1.010 November 12, 2014 12:50am 46578-2: URINE BLOOD(NEGATIVE) NEGATIVE November 12, 2014 12:50am 2756-5: URINE PH(5.0-9.0) 6.0 November 12, 2014 12:50am URINE PROTEIN(Less than 20 MG/DL) NEGATIVE MG/DL November 12, 2014 12:50am URINE UROBILINOGEN(0.2-1.0 MG/DL) 0.2 MG/DL November 12, 2014 12:50am URINE NITRITE(NEGATIVE) NEGATIVE November 12, 2014 12:50am 5799-2: LEUKOCYTE ESTERASE ,URINE(NEGATIVE) NEGATIVE November 12, 2014 12: 50am 630-4: URINE CULTURE NOT INDICATED November 12, 2014 12:50am URINE MICROSCOPIC REQUIRED NO November 12, 2014 12:50am 15078-6: COMPLETE METABOLIC PROFILE GLUCOSE(70-110 MG/DL) 406 MG/DL November 11, 2014 11:50pm BLOOD UREA NITROGEN(6-20 MG/DL) 14 MG/DL November 11, 2014 11:50pm CREATININE(0.50-1.20 MG/DL) 0.76 MG/DL November 11, 2014 11:50pm 80410-2: EST GLOMERULAR FILTRATION RATE(Greater than or equal to 60) Greater than or equal to 60 November 11, 2014 11:50pm Result Comments: If the patient is of -[place] Citizen descent/extraction multiply the eGFR value by 1.212 to obtain the actual eGFR. >=60 mg/dL Normal 30-59 mg/dL Moderate Kidney Disease 15-29 mg/dL Severe Kidney Disease <15 mg/dL Kidney Failure BUN CREATININE RATIO(10.0-20.0 RATIO) 18.0 RATIO November 11, 2014 11:50pm SODIUM(135-145 MMOL/L) 134 MMOL/L November 11, 2014 11:50pm POTASSIUM(3.6-5.0 MMOL/L) 3.9 MMOL/L November 11, 2014 11:50pm CHLORIDE(101-111 MMOL/L) 100 MMOL/L November 11, 2014 11:50pm 8-9: CO2(21-31 MMOL/L) 24.0 MMOL/L November 11, 2014 11:50pm 49767-5: ANION GAP(8-18) 14 November 11, 2014 11:50pm OSMO CALCULATED(270.0-290.0) 285.8 November 11, 2014 11:50pm CALCIUM(8.5-10.5 MG/DL) 8.6 MG/DL November 11, 2014 11:50pm BILIRUBIN,TOTAL(0.1-1.2 MG/DL) 0.3 MG/DL November 11, 2014 11:50pm ALKALINE PHOSPHATASE(42-121 IU/L) 72 IU/L November 11, 2014 11:50pm ASPARTATE AMINO TRANSFERASE(10-42 IU/L) 28 IU/L November 11, 2014 11:50pm ALANINE AMINOTRANSFERASE(10-60 IU/L) 23 IU/L November 11, 2014 11:50pm 60801-4: TOTAL PROTEIN(6.4-8.2 G/DL) 6.8 G/DL November 11, 2014 11:50pm ALBUMIN(3.5-5.5 G/DL) 3.1 G/DL November 11, 2014 11:50pm 2336-6: GLOBULIN(2.4-3.6) 3.7 November 11, 2014 11:50pm ALBUMIN/GLOBULIN RATIO(0.9-1.8 RATIO) 0.8 RATIO November 11, 2014 11:50pm SERUM HCG, QUALITATIVE 0-5: SERUM HCG, QUALITATIVE(NEGATIVE) NEGATIVE November 11, 2014 11:50pm Allergies and Adverse Reactions Allergies and Adverse Reactions Patient Unit Number: [id number] Agent Type Reaction Severity Status IODINATED CONTRAST [...] Unknown Active Problem List Problem List Visit/Account #[id number] (November 11, 2014 10:07pm - November 12, 2014 1: 15am) Acute Problems: Code/Condition Comments Documented Start Documented Code(s) Date Resolved Date Venous stasis dermatitis ICD10: I83.10 Venous stasis dermatitis ICD9: 454.1 Venous stasis dermatitis SNOMED: 29157151 Venous stasis dermatitis Plan of Care Plan Of Care Visit/Account #[id number] (November 11, 2014 10:07pm - November 12, 2014 1: 15am) Patient Instructions Prop leg up at rest. Wear DIMITRIS hose or compression stockings during the day. Return if symptoms worsen. Restart your coumadin. Vital Signs Vital Signs Visit/Account #[id number] (November 11, 2014 10:07pm - November 12, 2014 1: 15am) Sign First Result Last Result Code(s) Temperature in Fahrenheit Temperature (Fahrenheit): 97.6 [degF] On November 11, 2014 10:07pm Temperature (Fahrenheit): 97.2 [degF] On November 12, 2014 1 :13am 8310-5 Body Temperature Functional Status Functional and Cognitive Status No Functional Status Data Medications Inpatient/Ordered Medications - Medications administered during hospital visit Visit/Account #[id number] (November 11, 2014 10:07pm - November 12, 2014 1: 15am) Medication Route Sig/Schedule Precondition/Indication Comments/ Instructions Codes SUBLIMAZE INJ(FentaNYL CITRATE) 100 MCG/2 ML INJECTION INTRAVEN NOW Rx Order Comments: Fentanyl 0.05 MG/ML Injectable Solution (RxNorm): 900053 Dose: 0.5 ML Order placed as verified: Dose Warnings differ from border patrol officer SUBLIMAZE INJ (FentaNYL CITRATE ) NDC: 82653668521 Dose Warnings differ from border patrol officer Label Comments: GIVE BY SLOW PUSH OVER 2-5 MIN MAY INCREASE FALL RISK IV Medication INTRAVEN .Q30M (Rate: 1000 MLS/HR Duration: 30 MIN) Rx Order Comments: Carriers: Order placed as verified: Carriers: Dose Warnings differ from border patrol officer Sodium Chloride 0.154 MEQ/ML Injectable Solution (RxNorm): 838647 Dose Warnings differ from border patrol officer NORMAL SALINE(SODIUM CHLORIDE) 1000 ML INJECTION NORMAL SALINE ( SODIUM CHLORIDE) NDC: 93196226427 Dose: 500 ML History Of Encounters Encounters Visit/Account #[id number] (November 11, 2014 10:07pm - November 12, 2014 1: 15am) Account Physican Of Reason For Visit Diagnosis Start Date/Time Stop Date/ Time Status Record Visit ER FALGUNI BOJORQUEZ MD POSSIBLE BLOOD CLOT 729.81: SWELLING OF LIMB ICD9 Nov 11, 2014 10:07pm Nov 12, 2014 1:15am History of Procedures Procedure List No procedures recorded. Discharge Instructions Discharge Instructions Visit/Account #[id number] (November 11, 2014 10:07pm - November 12, 2014 1: 15am) DISCHARGE INSTRUCTIONS Physician Documentation Social History Social History No Social History Data. Immunizations Immunizations Patient Unit Number: [id number] Immunizations No immunizations recorded.
--- OUTSIDE RECORDS SUMMARY | 2016-10-20 19:22 | External Medical Summary | Referral Summary ---
:1975 Author Organization [facility] Address [address] [place] [address] Care Team Providers Name Role Phone Easton Gomez Primary Care Physician Encounter VC Date(s): 01/10/16 - 01/10/16 [facility] [address] [place] [address]- [place] Discharge Diagnosis: Polyarthralgia Discharge Diagnosis: Anemia Discharge Diagnosis: NSAID long-term use Discharge Disposition: 01-Home or Self Care Attending Physician: Sydea Murcia MD Admitting Physician: Syeda Murcia MD Referring Physician: Easton Gomez DO Vital Signs Most recent to oldest [Reference Range]: 1 Peripheral Pulse Rate [60-100 bpm] 60 bpm (01/10/16 2:42 PM) Blood Pressure [90-140/60-90 mmHg] 118/68 mmHg (01/10/16 2:42 PM) Problem List Condition Effective Dates Status [...] At Risk for Infection in Nutrition Planof [id number] added automatically by system based on initiation of Risk for Injury Plan of Ptml4Zletvdi added automatically by system based on initiation of Knowledge Deficit Plan of Ustm9Tuxfyjt added automatically by system based on initiation of Self Care Deficit Plan of Ruci8Nctwalt added automatically by system based on initiation [...] Most recent to oldest [Reference Range]: 1 Sed Rate [0-23] 19 (01/10/16 3:25 PM) Chemistry Most recent to oldest [Reference Range]: 1 Iron [50-170 mcg/dL] 49 mcg/dL *LOW* (01/10/16 3:25 PM) TIBC [260-445 mcg/dL] 419 mcg/dL 1 (01/10/16 3:25 PM) Unbound Iron Content [126-382] 370 (01/10/16 3:25 PM) Iron Sat [11-46 %] 12 % (01/10/16 3:25 PM) Ferritin Lvl [5-204 ng/mL] 43 ng/mL (01/10/16 3:25 PM) 1Result Comment: Corrected result; previously reported as 420 on 01/10/16 at 21: 04 by CJONK Immunizations Vaccine Date Refusal Reason pneumococcal 23-polyvalent vaccine 06/20/15 Procedures Procedure Date Related Diagnosis Body Site Fusion Spine Cervical Anterior and Discectomy1 06/18/15 1auto-populated from documented surgical case Social History Social History Type Response Smoking Status Never smoker Assessment and Plan No data available for this section
--- OUTSIDE RECORDS SUMMARY | 2016-10-20 19:22 | External Medical Summary | Continuity Of Care Document ---
:1975 Author Organization [facility] Address [address] [place] [address] Phone Care Team Providers Name Role Phone STEPHY RM MD Attending Provider Results Lab Results Visit/Account #[id number] (February 05, 2015 10:01pm - February 06, 2015 12: 49am) Test Result Date/Time CG8 VENOUS 14187-4: STYPE FACUNDO February 05, 2015 10:08pm HEMOGLOBIN(12.0-16.0 G/DL) 13.3 G/DL February 05, 2015 10:08pm HEMATOCRIT(36.0-48.0 %) 39.0 % February 05, 2015 10:08pm GLUCOSE(70-110 MG/DL) 379 MG/DL February 05, 2015 10:08pm SODIUM(135-145 MMOL/L) 136 MMOL/L February 05, 2015 10:08pm POTASSIUM(3.6-5.0 MMOL/L) 3.2 MMOL/L February 05, 2015 10:08pm IONIZED CALCIUM(1.12-1.32 mmol/L) 1.20 mmol/L February 05, 2015 10:08pm 2746-6: PH VENOUS(7.31-7.41) 7.34 February 05, 2015 10:08pm 2020-4: PCO2 VENOUS(41-51 mmHg) 40.9 mmHg February 05, 2015 10:08pm 5-2: PO2 VENOUS(30-40 mmHg) 71 mmHg February 05, 2015 10:08pm HCO3(22-26 MMOL/L) 22.3 MMOL/L February 05, 2015 10:08pm TCO2(23-30 MMOL/L) 23 MMOL/L February 05, 2015 10:08pm SO2C VENOUS(75-75 %) 93 % February 05, 2015 10:08pm 35762-0: BASE DEFICIT(0-3) 3 February 05, 2015 10:08pm POCGL POCGL(70-110 MG/DL) 268 MG/DL February 06, 2015 12:33am 38239-6: COMPLETE BLOOD COUNT WITH DIFF WHITE BLOOD COUNT(4.0-11.0 10E3/UL) 6.7 10E3/UL February 05, 2015 10:00pm RED BLOOD COUNT(4.00-5.20 10E6/UL) 4.01 10E6/UL February 05, 2015 10:00pm HEMOGLOBIN(12.0-16.0 G/DL) 12.0 G/DL February 05, 2015 10:00pm HEMATOCRIT(36.0-46.0 %) 34.8 % February 05, 2015 10:00pm MEAN CORPUSCULAR VOLUME(82.0-100.0 FL) 86.8 FL February 05, 2015 10:00pm 90633-2: MEAN CORPUSCULAR HEMOGLOBIN(26.0-34.0 PG) 29.9 PG February 05, 2015 10:00pm MEAN CORPUSCULAR HGB CONC(31.5-36.5 G/DL) 34.5 G/DL February 05, 2015 10:00pm RED CELL DISTRIBUTION WIDTH(11.5-14.5 %) 13.1 % February 05, 2015 10:00pm 777-3: PLATELET COUNT(150-450 10E3/UL) 129 10E3/UL February 05, 2015 10:00pm MEAN PLATELET VOLUME(8.2-12.4 FL) 11.1 FL February 05, 2015 10:00pm 770-8: NEUTROPHILS % (AUTO)(40-70 %) 53 % February 05, 2015 10:00pm LYMPHOCYTES % (AUTO)(15-45 %) 35 % February 05, 2015 10:00pm 5905-5: MONOCYTES % (AUTO)(2-10 %) 8 % February 05, 2015 10:00pm 713-8: EOSINOPHILS % (AUTO)(0-6 %) 3 % February 05, 2015 10:00pm 706-2: BASOPHILS % (AUTO)(0-1 %) 1 % February 05, 2015 10:00pm 13791-1: IMMATURE GRANS % (AUTO)(0-0 %) 1 % February 05, 2015 10:00pm NUCLEATED RBCS (AUTO)(0-0 %) 0 % February 05, 2015 10:00pm 751-8: NEUTROPHILS # (AUTO)(2.5-7.5 10E3/UL) 3.5 10E3/UL February 05, 2015 10 :00pm 21742-3: LYMPHOCYTES # (AUTO)(1.0-4.0 10E3/UL) 2.4 10E3/UL February 05, 2015 10:00pm 742-7: MONOCYTES # (AUTO)(0.2-0.8 10E3/UL) 0.5 10E3/UL February 05, 2015 10: 00pm 711-2: EOSINOPHILS # (AUTO)(0.0-0.4 10E3/UL) 0.2 10E3/UL February 05, 2015 10 :00pm 704-7: BASOPHILS # (AUTO)(0.0-0.2 10E3/UL) 0.1 10E3/UL February 05, 2015 10: 00pm IMMATURE GRANS # (AUTO)(0.0-0.0 10E3/UL) 0.1 10E3/UL February 05, 2015 10: 00pm DIFF TYPE AUTOMATED February 05, 2015 10:00pm 65078-3: PROTHROMBIN TIME WITH INR PROTHROMBIN TIME(12.1-14.0 SEC) 13.8 SEC February 05, 2015 10:00pm 83656-8: INR 1.10 February 05, 2015 10:00pm Result Comments: INR reference interval applies to patients on anticoagulant therapy. Suggested INR therapeutic range for oral anticoagulant therapy: (Stabilized anticoagulated patients) Routine Therapy: 2.0 to 3.0 Recurrent Myocardial Infarction: 2.5 to 3.5 Mechanical Prosthetic Valves: 2.5 to 3.5 PARTIAL THROMBOPLASTIN TIME PARTIAL THROMBOPLASTIN TIME(22.2-37.4 SEC) 27.5 SEC February 05, 2015 10:00pm UA WITH SCREEN FOR CULTURE 5778-6: COLOR,URINE YELLOW February 05, 2015 12:02am 60062-9: CLARITY,URINE CLEAR February 05, 2015 12:02am GLUCOSE, URINE(NEGATIVE MG/DL) 500 MG/DL February 05, 2015 12:02am URINE BILIRUBIN(NEGATIVE) NEGATIVE February 05, 2015 12:02am 87003-8: KETONES,URINE(NEGATIVE MG/DL) TRACE MG/DL February 05, 2015 12:02am 2965-2: URINE SPECIFIC GRAVITY(1.001-1.035) 1.015 February 05, 2015 12:02am 45081-1: URINE BLOOD(NEGATIVE) NEGATIVE February 05, 2015 12:02am 2756-5: URINE PH(5.0-9.0) 6.5 February 05, 2015 12:02am URINE PROTEIN(Less than 20 MG/DL) NEGATIVE MG/DL February 05, 2015 12:02am URINE UROBILINOGEN(0.2-1.0 MG/DL) 0.2 MG/DL February 05, 2015 12:02am URINE NITRITE(NEGATIVE) NEGATIVE February 05, 2015 12:02am 5799-2: LEUKOCYTE ESTERASE ,URINE(NEGATIVE) NEGATIVE February 05, 2015 12: 02am 630-4: URINE CULTURE NOT INDICATED February 05, 2015 12:02am URINE MICROSCOPIC REQUIRED NO February 05, 2015 12:02am 81695-1: COMPLETE METABOLIC PROFILE GLUCOSE(70-110 MG/DL) 375 MG/DL February 05, 2015 10:00pm BLOOD UREA NITROGEN(6-20 MG/DL) 11 MG/DL February 05, 2015 10:00pm CREATININE(0.50-1.20 MG/DL) 0.70 MG/DL February 05, 2015 10:00pm 44218-1: EST GLOMERULAR FILTRATION RATE(Greater than or equal to 60) Greater than or equal to 60 February 05, 2015 10:00pm Result Comments: If the patient is of -[place] descent/extraction multiply the eGFR value by 1.212 to obtain the actual eGFR. >=60 mg/dL Normal 30-59 mg/dL Moderate Kidney Disease 15-29 mg/dL Severe Kidney Disease <15 mg/dL Kidney Failure BUN CREATININE RATIO(10.0-20.0 RATIO) 16.0 RATIO February 05, 2015 10:00pm SODIUM(135-145 MMOL/L) 132 MMOL/L February 05, 2015 10:00pm POTASSIUM(3.6-5.0 MMOL/L) 3.1 MMOL/L February 05, 2015 10:00pm CHLORIDE(101-111 MMOL/L) 100 MMOL/L February 05, 2015 10:00pm 8-9: CO2(21-31 MMOL/L) 21.0 MMOL/L February 05, 2015 10:00pm 91826-1: ANION GAP(8-18) 14 February 05, 2015 10:00pm OSMO CALCULATED(270.0-290.0) 279.3 February 05, 2015 10:00pm CALCIUM(8.5-10.5 MG/DL) 8.5 MG/DL February 05, 2015 10:00pm BILIRUBIN,TOTAL(0.1-1.2 MG/DL) 0.3 MG/DL February 05, 2015 10:00pm ALKALINE PHOSPHATASE(42-121 IU/L) 66 IU/L February 05, 2015 10:00pm ASPARTATE AMINO TRANSFERASE(10-42 IU/L) 31 IU/L February 05, 2015 10:00pm ALANINE AMINOTRANSFERASE(10-60 IU/L) 30 IU/L February 05, 2015 10:00pm 08136-5: TOTAL PROTEIN(6.4-8.2 G/DL) 6.9 G/DL February 05, 2015 10:00pm ALBUMIN(3.5-5.5 G/DL) 3.2 G/DL February 05, 2015 10:00pm 2336-6: GLOBULIN(2.4-3.6) 3.7 February 05, 2015 10:00pm ALBUMIN/GLOBULIN RATIO(0.9-1.8 RATIO) 0.9 RATIO February 05, 2015 10:00pm 29190-7: MAGNESIUM 71869-2: MAGNESIUM(1.8-2.5 MG/DL) 1.4 MG/DL February 05, 2015 10:00pm 3040-3: LIPASE 3040-3: LIPASE(22-51 U/L) 21 U/L February 05, 2015 10:00pm Allergies and Adverse Reactions Allergies and Adverse Reactions Patient Unit Number: [id number] Agent Type Reaction Severity Status IODINATED CONTRAST [...] Unknown Active Problem List Problem List Visit/Account #[id number] (February 05, 2015 10:01pm - February 06, 2015 12: 49am) Acute Problems: Code/Condition Comments Documented Start Date Documented Resolved Code(s) Date Syncope ICD10: R55 Syncope ICD9: 780.2 Syncope SNOMED: 378116913 Syncope Patient Unit Number: [id number] Chronic Problems: Code/Condition Comments Documented Start Date Documented Resolved Code(s) Date Diabetes ICD9: 250.0 Diabetes SNOMED: 35110177 Diabetes Plan of Care Plan Of Care Visit/Account #[id number] (February 05, 2015 10:01pm - February 06, 2015 12: 49am) Patient Instructions The CT scans of your head and neck did not demonstrate any injury or fracture. Your laboratory work demonstrated an elevated blood sugar but did not show signs of complications secondary to this. Your EKG did not show an acute abnormality with your heart. Return if worse or any concern. Home to rest. Drink plenty of fluids Follow-up with your PCP within 48 hrs for further evaluation and care. Vital Signs Vital Signs Visit/Account #[id number] (February 05, 2015 10:01pm - February 06, 2015 12: 49am) Sign First Result Last Result Code(s) Temperature in Fahrenheit Temperature (Fahrenheit): 97.9 [degF] On February 05, 2015 9:58pm Temperature (Fahrenheit): 97.8 [degF] On February 06, 2015 12: 49am 8310-5 Body Temperature Weight in Kilograms Weight (Kilograms): 115.6 kg On February 05, 2015 9:58pm 3141-9 Weight Measured 03082-4 Body weight measured in kilograms Functional Status Functional and Cognitive Status No Functional Status Data Medications Inpatient/Ordered Medications - Medications administered during hospital visit Visit/Account #[id number] (February 05, 2015 10:01pm - February 06, 2015 12: 49am) Medication Route Sig/Schedule Precondition/Indication Comments/ Instructions Codes IV Medication INTRAVEN .Q1H (Rate: 1000 MLS/HR Duration: 1 HR) Carriers: Carriers: Sodium Chloride 0.154 MEQ/ML Injectable Solution (RxNorm): 034448 NORMAL SALINE(SODIUM CHLORIDE) 1000 ML INJECTION NORMAL SALINE ( SODIUM CHLORIDE) NDC: 35565468603 Dose: 1000 ML SUBLIMAZE INJ(FentaNYL CITRATE) 100 MCG/2 ML INJECTION INTRAVEN NOW Label Comments: Fentanyl 0.05 MG/ML Injectable Solution (RxNorm): 176048 Dose: 1 ML GIVE BY SLOW PUSH OVER 2-5 MIN MAY INCREASE FALL RISK SUBLIMAZE INJ (FentaNYL CITRATE) NDC: 17746091200 K-LYTE/CL EFF(POTASSIUM BICARB/POT CHLORIDE) 25 MEQ TAB ORAL NOW Label Comments: Potassium Chloride 25 MEQ Effervescent Oral Tablet (RxNorm): 1044157 Dose: 50 MEQ DISSOLVE IN 3 TO 4 OUNCES OF COLD WATER K-LYTE/CL EFF (POTASSIUM BICARB/POT CHLORIDE) NDC: 13638852961 HumuLIN-R (ER/AMBS PYX)(INSULIN HUM R) 100 UNIT/ML INJECTION INTRAVEN NOW Label Comments: Regular Insulin, Human 100 UNT/ML Injectable Solution [Novolin R] (RxNorm): 831514 Dose: 0.1 ML GIVE 30 MINUTES BEFORE A MEAL DOCUMENT SITE OF INJECTION HumuLIN-R (ER/AMBS PYX) (INSULIN HUM R) NDC : 49884263534 IV Medication INTRAVEN NOW (Rate: 300 MLS/HR Duration: 20 MIN) Carriers: Carriers: Magnesium Sulfate 0.0813 MEQ/ML Injectable Solution (RxNorm) : 906460 MAGNESIUM SULFATE/D5W 1 GM/100 ML INJECTION (MAGNESIUM SULFATE/D5W) NDC: 44336344633 Dose: 100 ML SUBLIMAZE INJ(FentaNYL CITRATE) 100 MCG/2 ML INJECTION Route .STK-MED Fentanyl 0.05 MG/ML Injectable Solution (RxNorm): 959981 Dose: 100 MCG SUBLIMAZE INJ (FentaNYL CITRATE) NDC: 22310005646 History Of Encounters Encounters Visit/Account #[id number] (February 05, 2015 10:01pm - February 06, 2015 12: 49am) Account Status Physican Of Reason For Visit Diagnosis Start Date/Time Stop Date/Time Record Visit ER STEPHY RM MD NECK/BACK PAIN Not Available Feb 05, 2015 10:01pm Feb 06, 2015 12:49am History of Procedures Procedure List No procedures recorded. Discharge Instructions Discharge Instructions Visit/Account #[id number] (February 05, 2015 10:01pm - February 06, 2015 12: 49am) DISCHARGE INSTRUCTIONS Physician Documentation Social History Social History No Social History Data. Immunizations Immunizations Patient Unit Number: [id number] Immunizations No immunizations recorded.
--- OUTSIDE RECORDS SUMMARY | 2016-10-20 19:22 | External Medical Summary | Continuity Of Care Document ---
:1975 Author Organization [facility] Address [address] [place] [address] Phone Care Team Providers Name Role Phone BETO MARTINS MD Primary Care Provider LISY SAUCEDA DO Attending Provider Results Results No results recorded. Allergies and Adverse Reactions Allergies and Adverse Reactions Patient Unit Number: [id number] Agent Type Reaction Severity Status IODINATED CONTRAST [...] Unknown Active Problem List Problem List Visit/Account #[id number] (September 10, 2014 9:29am - September 10, 2014 11:50am) Acute Problems: Code/Condition Comments Documented Start Documented Code(s) Date Resolved Date Strain of lumbar region ICD10: S39.012A Strain of lumbar region ICD9: 847.2 Strain of lumbar region SNOMED: 296168963 Strain of lumbar region Cervical strain, acute ICD10: S16.1XXA Acute strain of neck muscle ICD9: 847.0 Acute strain of neck muscle SNOMED: 554198659 Acute strain of neck muscle Contusion of hip, right ICD10: S70.01XA Contusion of right hip ICD9: 924.01 Contusion of right hip SNOMED: 96822187 Contusion of right hip Contusion of knee, right ICD10: S80.01XA Contusion of right knee ICD9: 924.11 Contusion of right knee SNOMED: 39705211 Contusion of right knee Abrasion of knee, right ICD10: S80.211A Abrasion of right knee ICD9: 916.0 Abrasion of right knee SNOMED: 746676882 Abrasion of right knee Strain of lumbar region ICD10: S39.012A Strain of lumbar region ICD9: 847.2 Strain of lumbar region SNOMED: 974641821 Strain of lumbar region Plan of Care Plan Of Care Visit/Account #[id number] (September 10, 2014 9:29am - September 10, 2014 11:50am) Patient Instructions Ice to the area of injury 4 times a day, 20 minutes each. Take medication as needed for pain and muscle spasms. Keep the area of injury elevated as much as possible. Return if new symptoms, worsening symptoms or additional concerns. Followup with primary care physician in 2-3 days. If continued symptoms may require additional outpatient imaging and/or physical therapy. Vital Signs Vital Signs Visit/Account #[id number] (September 10, 2014 9:29am - September 10, 2014 11:50am) Sign First Result Last Result Code(s) Body Mass Index Body Mass Index (BMI): 49.0 kg/m2 On September 10, 2014 9:26am 55721-2 BMI (body mass index) Body Mass Index as a Calculated Value 49.1 kg/m2 On September 10, 2014 9:26am 03521-7 BMI (body mass index) Body Surface Area as a Calculated Value 2.06 m2 On September 10, 2014 9:26am 3140-1 BSA (body surface area) Height (Feet/Inches) 5 [ft_us] On September 10, 2014 9:26am Temperature in Fahrenheit Temperature (Fahrenheit): 97.8 [degF] On September 10, 2014 9:26am Temperature (Fahrenheit): 97.8 [degF] On September 10, 2014 11:26am 8310-5 Body Temperature Weight in Kilograms Weight (Kilograms): 114 kg On September 10, 2014 9:26am 3141-9 Weight Measured 87735-9 Body weight measured in kilograms Functional Status Functional and Cognitive Status No Functional Status Data Medications Inpatient/Ordered Medications - Medications administered during hospital visit Visit/Account #[id number] (September 10, 2014 9:29am - September 10, 2014 11:50am) Medication Route Sig/Schedule Precondition/Indication Comments/ Instructions Codes TORADOL INJ(KETOROLAC TROMETHAMINE) 60 MG/2 ML VIAL INTRAMUSC NOW Rx Order Comments: Ketorolac Tromethamine 30 MG/ML Injectable Solution (RxNorm): 066094 Dose: 2 ML Order placed as verified: Dose Warnings differ from border patrol agent TORADOL INJ (KETOROLAC TROMETHAMINE) NDC: 52305392383 TYLENOL(ACETAMINOPHEN) 500 MG TAB ORAL NOW Rx Order Comments: Acetaminophen 500 MG Oral Tablet [Mapap] (RxNorm): 867769 Dose: 1000 MG Order placed as verified: Allergies/Duplicates/Interactions differ from border patrol agent TYLENOL ( ACETAMINOPHEN) NDC: 31693582347 Label Comments: DO NOT EXCEED 4000 MG PER 24 HR Discharge Medications - Medications that patient should continue to take. Review with physician Visit/Account #[id number] (September 10, 2014 9:29am - September 10, 2014 11:50am) Medication Route Sig/Schedule Precondition/Indication Comments/ Instructions Codes Norflex(ORPHENADRINE CITRATE) 100 MG TAB ORAL AT BEDTIME MUSCLE SPASM 12 HR Orphenadrine Citrate 100 MG Extended Release Oral Tablet (RxNorm): 689112 Dose: 100 MG Norflex (ORPHENADRINE CITRATE) NDC: 93373290934 Toradol(KETOROLAC TROMETHAMINE) 10 MG TAB ORAL EVERY 6 HOURS PAIN Ketorolac Tromethamine 10 MG Oral Tablet (RxNorm): 700365 Dose: 1 TAB Toradol (KETOROLAC TROMETHAMINE) NDC: 93192923423 History Of Encounters Encounters Visit/Account #[id number] (September 10, 2014 9:29am - September 10, 2014 11:50am) Account Status Physican Of Reason For Visit Diagnosis Start Date/Time Stop Date/Time Record Visit ER LISY Nav SAMPEG, DO BACK AND HEAD PAIN Not Available Sep 10, 2014 9:29am Sep 10, 2014 11:50am History of Procedures Procedure List No procedures recorded. Discharge Instructions Discharge Instructions Visit/Account #[id number] (September 10, 2014 9:29am - September 10, 2014 11:50am) DISCHARGE INSTRUCTIONS Physician Documentation Social History Social History No Social History Data. Immunizations Immunizations Visit/Account #[id number] (September 10, 2014 9:29am - September 10, 2014 11:50am) Immunization Date Comments/Instructions Codes ADACEL(DIPHTH/TETANUS/ACEL. PERTUSSIS) 0.5 ML INJECTION September 10, 2014 10:06am Rx Order Comments: ADACEL (DIPHTH/TETANUS/ACEL. PERTUSSIS) CVX: 115 Order placed as verified: Dose Warnings differ from border patrol agent ADACEL (DIPHTH/TETANUS/ACEL. PERTUSSIS) [facility]: [id number] Label Comments: Review Vaccine Information Sheet with patient and complete Vaccine Documentation/Consent Form prior to administering dose. *FAX COMPLETED PROVIDER INFORMATION SIDE OF VACCINE DOCUMENTATION FORM TO PRIMARY PHYSICIAN'S OFFICE AND PLACE ON CHART* LINK SQUIRES
--- OUTSIDE RECORDS SUMMARY | 2016-10-20 19:23 | External Medical Summary ---
[...] Condition Code Onset Dates Condition Status Assessment Rheumatoid arthritis, involving M06.9 Active unspecified site, unspecified rheumatoid factor presence Problem Dysphagia R13.10 Active Problem Visual impairment [...] Assessment History of fall Z91.81 Active Assessment Type 2 diabetes mellitus with E11.65 Active hyperglycemia Medications Medication Code Code Instructions Start End Status Dosage System Date Date amlodipine NDC 81257 5 mg orally once a 1 tab(s) day melatonin NDC 26298 3 mg orally once 1 tab(s) (at bedtime) Spiriva NDC 36310 18 mcg/cap DPI oral 1 capsule HandiHaler inhalation once inhaled daily daily (2 puffs) Seroquel XR NDC 0 400 mg oral daily 1 docusate sodium NDC 0 100 mg bid 1 cap Lantus NDC 12377 100 units/mL 26 units subcutaneously qhs haloperidol NDC 31960 decanoate 100 mg/mL 0.2mL intramuscularly q (20mg) 30 days clozapine NDC 63804 25 mg orally qhs 2 tab(s) Dilaudid NDC 3325 2 mg orally q3hr 1 tab(s) PRN NovoLog NDC 76683 100 units/mL 16 units subcutaneously TID with meals gabapentin NDC 64613 600 mg orally 3 1 tab(s) times a day Topamax NDC 6438 25 mg orally qhs Oct 17, 1 tab(s) 2016 Imitrex NDC 2333 6 mg/0.5 mL Oct 17, 6 mg subcutaneously once 2016 q 1 hr; no more than 2 doses in 24 hr hydroxyzine NDC 33592 hydrochloride 25 mg 1 tab(s) orally TID Butrans NDC 116131 10 mcg/hr applied 1 PATCH topically once a week esomeprazole NDC 09049 40 mg orally once a 1 cap(s) day magnesium oxide NDC 92502 400 mg orally 4 2 tab(s) times per day for constipation Mobic NDC 36353 15 mg orally once a Oct 17, 1 tab(s) day 2016 Xarelto NDC 106733 10 mg orally once a 1 tab(s) day divalproex NDC 05650 500 mg orally BID 1 tab(s) sodium Procedures Procedure Coding System Code Date Subseq Care-New CC CPT-4 [id number] Sep 23, 2015 Vital Signs Date/Time: Sep 23, 2015 Temperature 98.2 F Blood Pressure Diastolic 85 mm Hg Blood Pressure Systolic 130 mm Hg BMI 49.60 Index Height 60 in Weight 254 lbs Pulse 88 /min Cardiac Monitoring Heart Rate 18 /min Results No Known Results Summary Purpose eClinicalWorks Submission
--- OUTSIDE RECORDS SUMMARY | 2016-10-20 19:23 | External Medical Summary ---
[...] Condition Code Onset Dates Condition Status Assessment Chronic pain syndrome G89.4 Active Problem Dysphagia R13.10 Active Problem Visual impairment in both eyes H54.3 Active Problem Type 2 diabetes mellitus with E11.65 Active hyperglycemia Assessment Hypertension I10 Active Problem Lethargy R53.83 Active Assessment Pain in left knee M25.562 Active Problem Hypertension I10 Active Problem S/P [...] Assessment Cervical spinal stenosis M48.02 Active Assessment Suicidal ideation R45.851 Active Medications Medication Code Code Instructions Start End Status Dosage System Date Date docusate sodium NDC 0 100 mg bid 1 cap NovoLog NDC 86039 100 units/mL 12 untis subcutaneously TID with meals Butrans NDC 650257 7.5 mcg/hr applied 1 patch topically once a week Spiriva NDC 07286 18 mcg/cap DPI oral 1 capsule HandiHaler inhalation once inhaled daily daily (2 puffs) hydroxyzine NDC 60002 hydrochloride 25 mg 1 tab(s) orally TID divalproex sodium NDC 78715 500 mg orally BID 1 tab(s) haloperidol NDC 24690 decanoate 100 mg/mL 0.2mL intramuscularly q (20mg) 30 days Seroquel XR NDC 0 400 mg oral daily 1 Xarelto NDC 064609 10 mg orally once a 1 tab(s) day amlodipine NDC 15420 5 mg orally once a 1 tab(s) day clozapine NDC 09080 25 mg orally qhs 2 tab(s) gabapentin NDC 47641 600 mg orally 3 1 tab(s) times a day acetaminophen NDC 33584 325 mg orally every 2 tab(s) 4 hours prn Lantus NDC 01723 100 units/mL September 14, 10 units subcutaneously 2016 daily esomeprazole NDC 16437 40 mg orally once a 1 cap(s) day Dilaudid NDC 3325 2 mg orally q3hr 1 tab(s) PRN magnesium oxide NDC 91755 400 mg orally 4 2 tab(s) times per day for constipation melatonin NDC 50733 3 mg orally once 1 tab(s) (at bedtime) Procedures Procedure Coding System Code Date Subseq Care-New CC CPT-4 58421 August 02, 2015 Vital Signs Date/Time: August 02, 2015 Temperature 97.0 F Blood Pressure Diastolic 68 mm Hg Blood Pressure Systolic 128 mm Hg BMI 47.45 Index Height 60 in Weight 243 lbs Pulse 80 /min Cardiac Monitoring Heart Rate 18 /min Results No Known Results Summary Purpose eClinicalWorks Submission
--- OUTSIDE RECORDS SUMMARY | 2016-10-20 19:23 | External Medical Summary | Continuity Of Care Document ---
:1975 Author Organization [facility] Address [address] [place] [address] Phone Care Team Providers Name Role Phone BETO MARTINS MD Unavailable JOHNNY THOMAS, JEFF Rodriguez Consulting Provider HU PEREZ DO Attending Provider UNASSIGNED, ED PHYSICIAN Unavailable Unavailable LISY SAUCEDA DO Consulting Provider LA THOMAS, CAESAR Mott Unavailable MITCHELL ALTAMIRANO MD Consulting Provider SHAUNNA PORTILLO MD Unavailable ANA MARIE DO Admitting Provider Results Lab Results Visit/Account #[id number] (March 18, 2015 5:48pm - April 04, 2015 6:50pm ) Test Result Date/Time POCGL POCGL(70-110 MG/DL) 329 MG/DL March 18, 2015 8:20pm 262 MG/DL March 19, 2015 2:27am 246 MG/DL March 19, 2015 6:28am 175 MG/DL March 19, 2015 11:30am 72 MG/DL March 19, 2015 4:37pm 108 MG/DL March 19, 2015 9:55pm 108 MG/DL March 20, 2015 1:31am 149 MG/DL March 20, 2015 6:07am 93 MG/DL March 20, 2015 11:05am 98 MG/DL March 20, 2015 5:17pm 69 MG/DL March 20, 2015 10:35pm 111 MG/DL March 20, 2015 10:55pm 125 MG/DL March 20, 2015 11:27pm 125 MG/DL March 21, 2015 6:20am 213 MG/DL March 21, 2015 11:07am 60 MG/DL March 21, 2015 5:01pm 96 MG/DL March 21, 2015 5:43pm 157 MG/DL March 21, 2015 9:26pm 114 MG/DL March 22, 2015 5:22am 124 MG/DL March 22, 2015 11:04am 83 MG/DL March 22, 2015 4:24pm 99 MG/DL March 22, 2015 9:02pm 125 MG/DL March 23, 2015 5:31am 130 MG/DL March 23, 2015 11:19am 83 MG/DL March 23, 2015 4:28pm 129 MG/DL March 23, 2015 6:02pm 84 MG/DL March 23, 2015 9:17pm 96 MG/DL March 24, 2015 5:06am 163 MG/DL March 24, 2015 11:07am 70 MG/DL March 24, 2015 5:12pm 174 MG/DL March 24, 2015 8:19pm 97 MG/DL March 25, 2015 5:47am 109 MG/DL March 25, 2015 11:41am 62 MG/DL March 25, 2015 1:41pm 80 MG/DL March 25, 2015 1:59pm 89 MG/DL March 25, 2015 5:23pm 123 MG/DL March 25, 2015 9:15pm 105 MG/DL March 26, 2015 5:57am 156 MG/DL March 26, 2015 11:16am 97 MG/DL March 26, 2015 5:36pm 107 MG/DL March 26, 2015 8:43pm 125 MG/DL March 27, 2015 6:17am 163 MG/DL March 27, 2015 11:47am 135 MG/DL March 27, 2015 4:25pm 138 MG/DL March 27, 2015 9:18pm 125 MG/DL March 28, 2015 5:44am 179 MG/DL March 28, 2015 10:46am 114 MG/DL March 28, 2015 4:21pm 180 MG/DL March 28, 2015 10:19pm 126 MG/DL March 29, 2015 7:08am 216 MG/DL March 29, 2015 10:14am 92 MG/DL March 29, 2015 5:35pm 108 MG/DL March 29, 2015 9:11pm 120 MG/DL March 30, 2015 5:48am 153 MG/DL March 30, 2015 10:09am 136 MG/DL March 30, 2015 4:39pm 171 MG/DL March 30, 2015 7:48pm 94 MG/DL March 31, 2015 5:29am 108 MG/DL March 31, 2015 11:36am 109 MG/DL March 31, 2015 4:12pm 113 MG/DL March 31, 2015 8:13pm 120 MG/DL April 01, 2015 6:08am 104 MG/DL April 01, 2015 8:34am 113 MG/DL April 01, 2015 11:46am 131 MG/DL April 01, 2015 5:13pm 135 MG/DL April 01, 2015 8:19pm 97 MG/DL April 02, 2015 5:46am 98 MG/DL April 02, 2015 11:30am 131 MG/DL April 02, 2015 5:02pm 119 MG/DL April 02, 2015 8:16pm 94 MG/DL April 03, 2015 5:40am 135 MG/DL April 03, 2015 11:00am 131 MG/DL April 03, 2015 5:24pm 136 MG/DL April 03, 2015 10:05pm 105 MG/DL April 04, 2015 5:38am 144 MG/DL April 04, 2015 9:54am 91 MG/DL April 04, 2015 11:47am 145 MG/DL April 04, 2015 2:29pm 144 MG/DL April 04, 2015 4:54pm POC LACTIC ACID VENOUS POC LACTIC ACID VENOUS(0.90-1.70 MMOL/L) 0.98 MMOL/L March 18, 2015 8:56pm 92460-5: COMPLETE BLOOD COUNT WITH DIFF WHITE BLOOD COUNT(4.0-11.0 10E3/UL) 9.1 10E3/UL March 18, 2015 5:50pm RED BLOOD COUNT(4.00-5.20 10E6/UL) 3.69 10E6/UL March 18, 2015 5:50pm HEMOGLOBIN(12.0-16.0 G/DL) 11.0 G/DL March 18, 2015 5:50pm HEMATOCRIT(36.0-46.0 %) 31.8 % March 18, 2015 5:50pm MEAN CORPUSCULAR VOLUME(82.0-100.0 FL) 86.2 FL March 18, 2015 5:50pm 94127-7: MEAN CORPUSCULAR HEMOGLOBIN(26.0-34.0 PG) 29.8 PG March 18, 2015 5 :50pm MEAN CORPUSCULAR HGB CONC(31.5-36.5 G/DL) 34.6 G/DL March 18, 2015 5:50pm RED CELL DISTRIBUTION WIDTH(11.5-14.5 %) 13.3 % March 18, 2015 5:50pm 777-3: PLATELET COUNT(150-450 10E3/UL) 98 10E3/UL March 18, 2015 5:50pm MEAN PLATELET VOLUME(8.2-12.4 FL) 11.0 FL March 18, 2015 5:50pm 770-8: NEUTROPHILS % (AUTO)(40-70 %) 64 % March 18, 2015 5:50pm LYMPHOCYTES % (AUTO)(15-45 %) 21 % March 18, 2015 5:50pm 5905-5: MONOCYTES % (AUTO)(2-10 %) 11 % March 18, 2015 5:50pm 713-8: EOSINOPHILS % (AUTO)(0-6 %) 2 % March 18, 2015 5:50pm 706-2: BASOPHILS % (AUTO)(0-1 %) 0 % March 18, 2015 5:50pm 751-8: NEUTROPHILS # (AUTO)(2.5-7.5 10E3/UL) 5.8 10E3/UL March 18, 2015 5: 50pm 91600-1: LYMPHOCYTES # (AUTO)(1.0-4.0 10E3/UL) 1.9 10E3/UL March 18, 2015 5 :50pm 742-7: MONOCYTES # (AUTO)(0.2-0.8 10E3/UL) 1.0 10E3/UL March 18, 2015 5: 50pm 711-2: EOSINOPHILS # (AUTO)(0.0-0.4 10E3/UL) 0.2 10E3/UL March 18, 2015 5: 50pm 704-7: BASOPHILS # (AUTO)(0.0-0.2 10E3/UL) 0.0 10E3/UL March 18, 2015 5: 50pm DIFF TYPE AUTOMATED March 18, 2015 5:50pm COMPLETE BLOOD COUNT WHITE BLOOD COUNT(4.0-11.0 10E3/UL) 7.6 10E3/UL March 19, 2015 3:55am 9.1 10E3/UL March 20, 2015 9:29am 11.0 10E3/UL March 21, 2015 5:49am 9.2 10E3/UL March 22, 2015 5:37am 5.8 10E3/UL March 30, 2015 7:26am RED BLOOD COUNT(4.00-5.20 10E6/UL) 3.56 10E6/UL March 19, 2015 3:55am 3.44 10E6/UL March 20, 2015 9:29am 3.30 10E6/UL March 21, 2015 5:49am 3.37 10E6/UL March 22, 2015 5:37am 3.55 10E6/UL March 30, 2015 7:26am HEMOGLOBIN(12.0-16.0 G/DL) 10.5 G/DL March 19, 2015 3:55am 10.2 G/DL March 20, 2015 9:29am 9.7 G/DL March 21, 2015 5:49am 9.8 G/DL March 22, 2015 5:37am 10.5 G/DL March 30, 2015 7:26am HEMATOCRIT(36.0-46.0 %) 31.0 % March 19, 2015 3:55am 30.8 % March 20, 2015 9:29am 30.2 % March 21, 2015 5:49am 30.7 % March 22, 2015 5:37am 32.2 % March 30, 2015 7:26am MEAN CORPUSCULAR VOLUME(82.0-100.0 FL) 87.1 FL March 19, 2015 3:55am 89.5 FL March 20, 2015 9:29am 91.5 FL March 21, 2015 5:49am 91.1 FL March 22, 2015 5:37am 90.7 FL March 30, 2015 7:26am 15207-1: MEAN CORPUSCULAR HEMOGLOBIN(26.0-34.0 PG) 29.5 PG March 19, 2015 3 :55am 29.7 PG March 20, 2015 9:29am 29.4 PG March 21, 2015 5:49am 29.1 PG March 22, 2015 5:37am 29.6 PG March 30, 2015 7:26am MEAN CORPUSCULAR HGB CONC(31.5-36.5 G/DL) 33.9 G/DL March 19, 2015 3:55am 33.1 G/DL March 20, 2015 9:29am 32.1 G/DL March 21, 2015 5:49am 31.9 G/DL March 22, 2015 5:37am 32.6 G/DL March 30, 2015 7:26am RED CELL DISTRIBUTION WIDTH(11.5-14.5 %) 13.4 % March 19, 2015 3:55am 13.9 % March 20, 2015 9:29am 14.1 % March 21, 2015 5:49am 13.7 % March 22, 2015 5:37am 13.7 % March 30, 2015 7:26am 777-3: PLATELET COUNT(150-450 10E3/UL) 150 10E3/UL March 19, 2015 3:55am 171 10E3/UL March 20, 2015 9:29am 187 10E3/UL March 21, 2015 5:49am 178 10E3/UL March 22, 2015 5:37am 211 10E3/UL March 30, 2015 7:26am MEAN PLATELET VOLUME(8.2-12.4 FL) 10.6 FL March 19, 2015 3:55am 9.7 FL March 20, 2015 9:29am 10.0 FL March 21, 2015 5:49am 10.1 FL March 22, 2015 5:37am 11.5 FL March 30, 2015 7:26am NUCLEATED RBCS (AUTO)(0-0 %) 0 % March 19, 2015 3:55am 0 % March 20, 2015 9:29am 0 % March 21, 2015 5:49am 0 % March 22, 2015 5:37am 0 % March 30, 2015 7:26am 98487-7: PROTHROMBIN TIME WITH INR PROTHROMBIN TIME(12.1-14.0 SEC) 26.7 SEC March 18, 2015 7:04pm 13.6 SEC March 20, 2015 9:29am 13.5 SEC March 21, 2015 5:49am 13.7 SEC March 22, 2015 5:37am 14.8 SEC March 23, 2015 5:44am 17.4 SEC March 24, 2015 5:42am 18.1 SEC March 25, 2015 5:28am 19.8 SEC March 26, 2015 5:57am 20.5 SEC March 27, 2015 5:39am 21.5 SEC March 28, 2015 6:31am 23.2 SEC March 29, 2015 6:01am 24.5 SEC March 30, 2015 7:26am 26.5 SEC March 31, 2015 5:29am 27.1 SEC April 02, 2015 6:38am 16989-2: INR 2.58 March 18, 2015 7:04pm Result Comments: INR reference interval applies to patients on anticoagulant therapy. Suggested INR therapeutic range for oral anticoagulant therapy: (Stabilized anticoagulated patients) Routine Therapy: 2.0 to 3.0 Recurrent Myocardial Infarction: 2.5 to 3.5 Mechanical Prosthetic Valves: 2.5 to 3.5 1.08 March 20, 2015 9:29am Result Comments: INR reference interval applies to patients on anticoagulant therapy. Suggested INR therapeutic range for oral anticoagulant therapy: (Stabilized anticoagulated patients) Routine Therapy: 2.0 to 3.0 Recurrent Myocardial Infarction: 2.5 to 3.5 Mechanical Prosthetic Valves: 2.5 to 3.5 1.07 March 21, 2015 5:49am Result Comments: INR reference interval applies to patients on anticoagulant therapy. Suggested INR therapeutic range for oral anticoagulant therapy: (Stabilized anticoagulated patients) Routine Therapy: 2.0 to 3.0 Recurrent Myocardial Infarction: 2.5 to 3.5 Mechanical Prosthetic Valves: 2.5 to 3.5 1.09 March 22, 2015 5:37am Result Comments: INR reference interval applies to patients on anticoagulant therapy. Suggested INR therapeutic range for oral anticoagulant therapy: (Stabilized anticoagulated patients) Routine Therapy: 2.0 to 3.0 Recurrent Myocardial Infarction: 2.5 to 3.5 Mechanical Prosthetic Valves: 2.5 to 3.5 1.21 March 23, 2015 5:44am Result Comments: INR reference interval applies to patients on anticoagulant therapy. Suggested INR therapeutic range for oral anticoagulant therapy: (Stabilized anticoagulated patients) Routine Therapy: 2.0 to 3.0 Recurrent Myocardial Infarction: 2.5 to 3.5 Mechanical Prosthetic Valves: 2.5 to 3.5 1.49 March 24, 2015 5:42am Result Comments: INR reference interval applies to patients on anticoagulant therapy. Suggested INR therapeutic range for oral anticoagulant therapy: (Stabilized anticoagulated patients) Routine Therapy: 2.0 to 3.0 Recurrent Myocardial Infarction: 2.5 to 3.5 Mechanical Prosthetic Valves: 2.5 to 3.5 1.56 March 25, 2015 5:28am Result Comments: INR reference interval applies to patients on anticoagulant therapy. Suggested INR therapeutic range for oral anticoagulant therapy: (Stabilized anticoagulated patients) Routine Therapy: 2.0 to 3.0 Recurrent Myocardial Infarction: 2.5 to 3.5 Mechanical Prosthetic Valves: 2.5 to 3.5 1.76 March 26, 2015 5:57am Result Comments: INR reference interval applies to patients on anticoagulant therapy. Suggested INR therapeutic range for oral anticoagulant therapy: (Stabilized anticoagulated patients) Routine Therapy: 2.0 to 3.0 Recurrent Myocardial Infarction: 2.5 to 3.5 Mechanical Prosthetic Valves: 2.5 to 3.5 1.84 March 27, 2015 5:39am Result Comments: INR reference interval applies to patients on anticoagulant therapy. Suggested INR therapeutic range for oral anticoagulant therapy: (Stabilized anticoagulated patients) Routine Therapy: 2.0 to 3.0 Recurrent Myocardial Infarction: 2.5 to 3.5 Mechanical Prosthetic Valves: 2.5 to 3.5 1.95 March 28, 2015 6:31am Result Comments: INR reference interval applies to patients on anticoagulant therapy. Suggested INR therapeutic range for oral anticoagulant therapy: (Stabilized anticoagulated patients) Routine Therapy: 2.0 to 3.0 Recurrent Myocardial Infarction: 2.5 to 3.5 Mechanical Prosthetic Valves: 2.5 to 3.5 2.15 March 29, 2015 6:01am Result Comments: INR reference interval applies to patients on anticoagulant therapy. Suggested INR therapeutic range for oral anticoagulant therapy: (Stabilized anticoagulated patients) Routine Therapy: 2.0 to 3.0 Recurrent Myocardial Infarction: 2.5 to 3.5 Mechanical Prosthetic Valves: 2.5 to 3.5 2.31 March 30, 2015 7:26am Result Comments: INR reference interval applies to patients on anticoagulant therapy. Suggested INR therapeutic range for oral anticoagulant therapy: (Stabilized anticoagulated patients) Routine Therapy: 2.0 to 3.0 Recurrent Myocardial Infarction: 2.5 to 3.5 Mechanical Prosthetic Valves: 2.5 to 3.5 2.56 March 31, 2015 5:29am Result Comments: INR reference interval applies to patients on anticoagulant therapy. Suggested INR therapeutic range for oral anticoagulant therapy: (Stabilized anticoagulated patients) Routine Therapy: 2.0 to 3.0 Recurrent Myocardial Infarction: 2.5 to 3.5 Mechanical Prosthetic Valves: 2.5 to 3.5 2.63 April 02, 2015 6:38am Result Comments: INR reference interval applies to patients on anticoagulant therapy. Suggested INR therapeutic range for oral anticoagulant therapy: (Stabilized anticoagulated patients) Routine Therapy: 2.0 to 3.0 Recurrent Myocardial Infarction: 2.5 to 3.5 Mechanical Prosthetic Valves: 2.5 to 3.5 PARTIAL THROMBOPLASTIN TIME PARTIAL THROMBOPLASTIN TIME(22.2-37.4 SEC) 32.4 SEC March 18, 2015 7:04pm UA WITH SCREEN FOR CULTURE 5778-6: COLOR,URINE STRAW March 18, 2015 8:19pm 02763-8: CLARITY,URINE SL CLOUDY March 18, 2015 8:19pm GLUCOSE, URINE(NEGATIVE MG/DL) Greater than or equal to 1000 MG/DL February 8:19pm URINE BILIRUBIN(NEGATIVE) NEGATIVE March 18, 2015 8:19pm 17955-0: KETONES,URINE(NEGATIVE MG/DL) TRACE MG/DL March 18, 2015 8:19pm 2965-2: URINE SPECIFIC GRAVITY(1.001-1.035) 1.010 March 18, 2015 8:19pm 36499-8: URINE BLOOD(NEGATIVE) TRACE-INTA March 18, 2015 8:19pm 2756-5: URINE PH(5.0-9.0) 7.0 March 18, 2015 8:19pm URINE PROTEIN(Less than 20 MG/DL) NEGATIVE MG/DL March 18, 2015 8:19pm URINE UROBILINOGEN(0.2-1.0 MG/DL) 0.2 MG/DL March 18, 2015 8:19pm URINE NITRITE(NEGATIVE) NEGATIVE March 18, 2015 8:19pm 5799-2: LEUKOCYTE ESTERASE ,URINE(NEGATIVE) NEGATIVE March 18, 2015 8:19pm 630-4: URINE CULTURE NOT INDICATED March 18, 2015 8:19pm URINE MICROSCOPIC REQUIRED YES March 18, 2015 8:19pm URINE WBCS(/HPF) 0-3 /HPF March 18, 2015 8:19pm 64263-7: URINE RBCS(/HPF) 4-7 /HPF March 18, 2015 8:19pm 54685-5: URINE EPITHELIAL CELLS(/HPF) 4-7 /HPF March 18, 2015 8:19pm BACTERIA,URINE(/HPF) 2+ /HPF March 18, 2015 8:19pm URINE CRYSTALS(/HPF) NONE SEEN /HPF March 18, 2015 8:19pm URINE CASTS(/LPF) NONE SEEN /LPF March 18, 2015 8:19pm URINE COMMENTS NONE March 18, 2015 8:19pm 16589-3: COMPLETE METABOLIC PROFILE GLUCOSE(70-110 MG/DL) 327 MG/DL March 18, 2015 7:04pm BLOOD UREA NITROGEN(6-20 MG/DL) 7 MG/DL March 18, 2015 7:04pm CREATININE(0.50-1.20 MG/DL) 0.62 MG/DL March 18, 2015 7:04pm 23432-6: EST GLOMERULAR FILTRATION RATE(Greater than or equal to 60) Greater than or equal to 60 March 18, 2015 7:04pm Result Comments: If the patient is of -Citizen Of [place] descent/extraction multiply the eGFR value by 1.212 to obtain the actual eGFR. >=60 mg/dL Normal 30-59 mg/dL Moderate Kidney Disease 15-29 mg/dL Severe Kidney Disease <15 mg/dL Kidney Failure BUN CREATININE RATIO(10.0-20.0 RATIO) 11.0 RATIO March 18, 2015 7:04pm SODIUM(135-145 MMOL/L) 132 MMOL/L March 18, 2015 7:04pm POTASSIUM(3.6-5.0 MMOL/L) 2.4 MMOL/L March 18, 2015 7:04pm CHLORIDE(101-111 MMOL/L) 93 MMOL/L March 18, 2015 7:04pm 2028-9: CO2(21-31 MMOL/L) 31.0 MMOL/L March 18, 2015 7:04pm 53706-8: ANION GAP(8-18) 10 March 18, 2015 7:04pm OSMO CALCULATED(270.0-290.0) 275.2 March 18, 2015 7:04pm CALCIUM(8.5-10.5 MG/DL) 8.1 MG/DL March 18, 2015 7:04pm BILIRUBIN,TOTAL(0.1-1.2 MG/DL) 0.7 MG/DL March 18, 2015 7:04pm ALKALINE PHOSPHATASE(42-121 IU/L) 61 IU/L March 18, 2015 7:04pm ASPARTATE AMINO TRANSFERASE(10-42 IU/L) 28 IU/L March 18, 2015 7:04pm ALANINE AMINOTRANSFERASE(10-60 IU/L) 23 IU/L March 18, 2015 7:04pm 28945-8: TOTAL PROTEIN(6.4-8.2 G/DL) 6.1 G/DL March 18, 2015 7:04pm ALBUMIN(3.5-5.5 G/DL) 2.8 G/DL March 18, 2015 7:04pm 2336-6: GLOBULIN(2.4-3.6) 3.3 March 18, 2015 7:04pm ALBUMIN/GLOBULIN RATIO(0.9-1.8 RATIO) 0.8 RATIO March 18, 2015 7:04pm BASIC METABOLIC PANEL GLUCOSE(70-110 MG/DL) 260 MG/DL March 19, 2015 3:55am 129 MG/DL March 20, 2015 9:29am 114 MG/DL March 21, 2015 5:49am 112 MG/DL March 22, 2015 5:37am 102 MG/DL March 30, 2015 7:26am BLOOD UREA NITROGEN(6-20 MG/DL) 6 MG/DL March 19, 2015 3:55am 8 MG/DL March 20, 2015 9:29am 11 MG/DL March 21, 2015 5:49am 18 MG/DL March 22, 2015 5:37am 27 MG/DL March 30, 2015 7:26am CREATININE(0.50-1.20 MG/DL) 0.50 MG/DL March 19, 2015 3:55am 0.71 MG/DL March 20, 2015 9:29am 0.71 MG/DL March 21, 2015 5:49am 0.86 MG/DL March 22, 2015 5:37am 1.00 MG/DL March 30, 2015 7:26am 24481-0: EST GLOMERULAR FILTRATION RATE(Greater than or equal to 60) Greater than or equal to 60 March 19, 2015 3:55am Result Comments: If the patient is of -Citizen Of [place] descent/extraction multiply the eGFR value by 1.212 to obtain the actual eGFR. >=60 mg/dL Normal 30-59 mg/dL Moderate Kidney Disease 15-29 mg/dL Severe Kidney Disease <15 mg/dL Kidney Failure Greater than or equal to 60 March 20, 2015 9:29am Result Comments: If the patient is of -Citizen Of [place] descent/extraction multiply the eGFR value by 1.212 to obtain the actual eGFR. >=60 mg/dL Normal 30-59 mg/dL Moderate Kidney Disease 15-29 mg/dL Severe Kidney Disease <15 mg/dL Kidney Failure Greater than or equal to 60 March 21, 2015 5:49am Result Comments: If the patient is of -Citizen Of [place] descent/extraction multiply the eGFR value by 1.212 to obtain the actual eGFR. >=60 mg/dL Normal 30-59 mg/dL Moderate Kidney Disease 15-29 mg/dL Severe Kidney Disease <15 mg/dL Kidney Failure Greater than or equal to 60 March 22, 2015 5:37am Result Comments: If the patient is of -Citizen Of [place] descent/extraction multiply the eGFR value by 1.212 to obtain the actual eGFR. >=60 mg/dL Normal 30-59 mg/dL Moderate Kidney Disease 15-29 mg/dL Severe Kidney Disease <15 mg/dL Kidney Failure Greater than or equal to 60 March 30, 2015 7:26am Result Comments: If the patient is of -Citizen Of [place] descent/extraction multiply the eGFR value by 1.212 to obtain the actual eGFR. >=60 mg/dL Normal 30-59 mg/dL Moderate Kidney Disease 15-29 mg/dL Severe Kidney Disease <15 mg/dL Kidney Failure BUN CREATININE RATIO(10.0-20.0 RATIO) 12.0 RATIO March 19, 2015 3:55am 11.0 RATIO March 20, 2015 9:29am 15.0 RATIO March 21, 2015 5:49am 21.0 RATIO March 22, 2015 5:37am 27.0 RATIO March 30, 2015 7:26am SODIUM(135-145 MMOL/L) 135 MMOL/L March 19, 2015 3:55am 134 MMOL/L March 20, 2015 9:29am 133 MMOL/L March 21, 2015 5:49am 135 MMOL/L March 22, 2015 5:37am 134 MMOL/L March 30, 2015 7:26am POTASSIUM(3.6-5.0 MMOL/L) 2.5 MMOL/L March 19, 2015 3:55am 2.6 MMOL/L March 20, 2015 9:29am 4.2 MMOL/L March 21, 2015 5:49am 4.9 MMOL/L March 22, 2015 5:37am 3.8 MMOL/L March 30, 2015 7:26am CHLORIDE(101-111 MMOL/L) 98 MMOL/L March 19, 2015 3:55am 99 MMOL/L March 20, 2015 9:29am 99 MMOL/L March 21, 2015 5:49am 102 MMOL/L March 22, 2015 5:37am 101 MMOL/L March 30, 2015 7:26am 2027-9: CO2(21-31 MMOL/L) 28.0 MMOL/L March 19, 2015 3:55am 27.0 MMOL/L March 20, 2015 9:29am 28.0 MMOL/L March 21, 2015 5:49am 28.0 MMOL/L March 22, 2015 5:37am 26.0 MMOL/L March 30, 2015 7:26am 40106-8: ANION GAP(8-18) 12 March 19, 2015 3:55am 11 March 20, 2015 9:29am 10 March 21, 2015 5:49am 10 March 22, 2015 5:37am 11 March 30, 2015 7:26am OSMO CALCULATED(270.0-290.0) 276.7 March 19, 2015 3:55am 268.3 March 20, 2015 9:29am 266.6 March 21, 2015 5:49am 272.8 March 22, 2015 5:37am 273.5 March 30, 2015 7:26am CALCIUM(8.5-10.5 MG/DL) 7.6 MG/DL March 19, 2015 3:55am 7.6 MG/DL March 20, 2015 9:29am 7.6 MG/DL March 21, 2015 5:49am 8.0 MG/DL March 22, 2015 5:37am 8.4 MG/DL March 30, 2015 7:26am 88742-4: MAGNESIUM 10038-4: MAGNESIUM(1.8-2.5 MG/DL) 1.5 MG/DL March 20, 2015 9:29am 2.0 MG/DL March 21, 2015 5:49am 1.9 MG/DL March 22, 2015 5:37am 1.9 MG/DL March 30, 2015 7:26am 37669-0: [place] 33108-0: CARDIAC TROPONIN I(0.01-0.04 NG/ML) 0.05 NG/ML March 18, 2015 7: 04pm Result Comments: REFERENCE RANGES: NEGATIVE < 0.04 NG/ML POSSIBLE MYCARDIAL INVOLVEMENT >/=0.04 NG/ML INTERPRET TROPONIN I RESULT IN LIGHT OF THE TOTAL CLINICAL PRESENTATION INCLUDING CLINICAL HISTORY. ANY CONDITION RESULTING IN MYOCARDIAL INJURY CAN POTENTIALLY ELEVATE TROPONIN I LEVELS ABOVE EXPECTED NORMAL RANGES. NOTE NEW REFERENCE RANGE 0.04 NG/ML March 18, 2015 9:53pm Result Comments: REFERENCE RANGES: NEGATIVE < 0.04 NG/ML POSSIBLE MYCARDIAL INVOLVEMENT >/=0.04 NG/ML INTERPRET TROPONIN I RESULT IN LIGHT OF THE TOTAL CLINICAL PRESENTATION INCLUDING CLINICAL HISTORY. ANY CONDITION RESULTING IN MYOCARDIAL INJURY CAN POTENTIALLY ELEVATE TROPONIN I LEVELS ABOVE EXPECTED NORMAL RANGES. NOTE NEW REFERENCE RANGE 0.03 NG/ML March 19, 2015 3:55am Result Comments: REFERENCE RANGES: NEGATIVE < 0.04 NG/ML POSSIBLE MYCARDIAL INVOLVEMENT >/=0.04 NG/ML INTERPRET TROPONIN I RESULT IN LIGHT OF THE TOTAL CLINICAL PRESENTATION INCLUDING CLINICAL HISTORY. ANY CONDITION RESULTING IN MYOCARDIAL INJURY CAN POTENTIALLY ELEVATE TROPONIN I LEVELS ABOVE EXPECTED NORMAL RANGES. NOTE NEW REFERENCE RANGE C REACTIVE PROTEIN C REACTIVE PROTEIN(5.0-10.0 MG/L) 29.0 MG/L March 21, 2015 5:49am Microbiology Results Visit/Account #[id number] (March 18, 2015 5:48pm - April 04, 2015 6:50pm ) Procedure Result 98689-9: MRSA SCREEN FOR INFEC CONTROL 83999-3: MRSA SCREEN FOR INFEC CONTROL Result Instance On March 18, 2015 9: 39pm Source: [facility] Special Result Comments: No growth BLOOD CULTURE BLOOD CULTURE Result Instance On March 18, 2015 8:54pm Source: BLOOD Special Result Comments: No growth Result Instance On March 18, 2015 9:05pm Source: BLOOD Special Result Comments: No growth Allergies and Adverse Reactions Allergies and Adverse Reactions Patient Unit Number: [id number] Agent Type Reaction Severity Status IODINATED CONTRAST [...] Unknown Active Problem List Problem List Visit/Account #[id number] (March 18, 2015 5:48pm - April 04, 2015 6:50pm ) Acute Problems: Code/Condition Comments Documented Start Documented Code(s) Date Resolved Date Hyponatremia ICD10: E87.1 Hyponatremia ICD9: 276.1 Hyponatremia SNOMED: 63509407 Hyponatremia Hyperglycemia ICD10: R73.9 Hyperglycemia ICD9: 790.29 Hyperglycemia SNOMED: 04382075 Hyperglycemia Dehydration ICD10: E86.0 Dehydration ICD9: 276.51 Dehydration SNOMED: 18260118 Dehydration Dermatitis ICD10: L30.9 Dermatitis ICD9: 692.9 Dermatitis SNOMED: 705876215 Dermatitis Bipolar 1 disorder ICD10: F31.9 Bipolar I disorder ICD9: 296.7 Bipolar I disorder SNOMED: 580712469 Bipolar I disorder 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 Self-mutilation ICD9: 300.9 Self-mutilation SNOMED: 826840607 Self-mutilation Suicidal ideation ICD10: R45.851 Suicidal ideation ICD9: V62.84 Suicidal ideation SNOMED: 8079825 Suicidal ideation Ulcer of left heel ICD10: L97.429 Ulcer of left heel ICD9: 707.14 Ulcer of left heel SNOMED: 910232389 Ulcer of left heel Hypokalemia ICD10: E87.6 Hypokalemia ICD9: 276.8 Hypokalemia SNOMED: 11667008 Hypokalemia Chronic Problems: Blindness, both eyes October 20, 2011 ICD10: H54.0 Blindness of both eyes ICD9: 369.00 Blindness of both eyes SNOMED: 46869630 Blindness of both eyes Frequent falls ICD10: R29.6 Recurrent falls ICD9: V15.88 Recurrent falls SNOMED: 523618663 Recurrent falls Type 2 diabetes mellitus ICD10: E11.9 Type 2 diabetes mellitus ICD9: 250.00 Type 2 diabetes mellitus SNOMED: 37850410 Type 2 diabetes mellitus Moderate protein-calorie malnutrition ICD10: E44.0 Moderate protein- energy malnutrition ICD9: 263.0 Moderate protein-energy malnutrition SNOMED: 917718372 Moderate protein-energy malnutrition Cervical spinal stenosis ICD10: M48.02 Spinal stenosis of cervical region ICD9: 723.0 Spinal stenosis of cervical region SNOMED: 81022739 Spinal stenosis of cervical region Ulcer of right foot ICD10: L97.519 Ulcer of right foot ICD9: 707.15 Ulcer of right foot SNOMED: 39716412 Ulcer of right foot Patient Unit Number: [id number] Chronic Problems: Code/Condition Comments Documented Start Documented Code(s) Date Resolved Date inability to care for self October 20, 2011 Diabetes ICD9: 250.0 Diabetes SNOMED: 22733375 Diabetes Plan of Care Plan Of Care Visit/Account #[id number] (March 18, 2015 5:48pm - April 04, 2015 6:50pm ) Patient Instructions Instructions DI for Diabetes Type 2 How to Prevent Falls DI for Warfarin Therapy Vital Signs Vital Signs Visit/Account #[id number] (March 18, 2015 5:48pm - April 04, 2015 6:50pm ) Sign First Result Last Result Code(s) Body Mass Index Body Mass Index (BMI): 26.0 kg/m2 On March 18, 2015 5:43pm 67817-0 BMI (body mass index) Body Mass Index as a Calculated Value 20.7 kg/m2 On March 18, 2015 5:43pm 86576-1 BMI (body mass index) Blood Pressure 134/ 78 mm[Hg] On March 19, 2015 1:40am 112/ 83 mm[Hg] On April 04, 2015 2:32pm 8480-6 BP Systolic Body Surface Area as a Calculated Value 1.74 m2 On March 18, 2015 5:43pm 3140-1 BSA (body surface area) Height (Feet/Inches) 5 [ft_us] 8 [in_us] On March 18, 2015 5:43pm Heart Rate/Pulse Pulse Rate (adult): 93 /min On March 19, 2015 1:40am Pulse Rate (adult): 81 /min On April 04, 2015 2:32pm 8867-4 Heart Rate 8893-0 Pulse rate Respiratory Rate Respiratory Rate: 19 /min On March 19, 2015 1:40am Respiratory Rate: 16 /min On April 04, 2015 2:32pm 9279-1 Respiratory rate Temperature in Fahrenheit Temperature (Fahrenheit): 98.7 [degF] On February 5:43pm Temperature (Fahrenheit): 97.6 [degF] On April 04, 2015 2: 32pm 8310-5 Body Temperature Weight in Kilograms Weight (Kilograms): 61.9 kg On March 18, 2015 5:43pm 3141-9 Weight Measured 17609-6 Body weight measured in kilograms Functional Status Functional and Cognitive Status No Functional Status Data Medications Home Medications - Medications that the patient was taking prior to arrival at the hospital Visit/Account #[id number] (March 18, 2015 5:48pm - April 04, 2015 6:50pm ) Medication Route Sig/Schedule Precondition/Indication Comments/ Instructions Codes TYLENOL(ACETAMINOPHEN) 325 MG TABLET ORAL NEEDED PAIN Acetaminophen 325 MG Oral Tablet (RxNorm): 281611 Dose: 650 MG TYLENOL (ACETAMINOPHEN) NDC: 76708300331 VENTOLIN 0.5% NEBS (use for MED REC)(ALBUTEROL SULF) 2.5 MG/0.5 ML INHALER INHALED EVERY 2 HRS WHILE AWAKE SHORTNESS OF BREATH/WHEEZING Albuterol 1 MG /ML Inhalant Solution (RxNorm): 514051 Dose: 2.5 MG VENTOLIN 0.5% NEBS (use for MED REC) (ALBUTEROL SULF) NDC: 47140432865 SYMBICORT 160-4.5(BUDESONIDE/FORMOTEROL) 6 GM INHALER ORAL TWICE A DAY Rx Note Text Comments: SYMBICORT 160-4.5 (BUDESONIDE/FORMOTEROL) NDC: 00256100281 Dose: 2 INH MAY SELF ADMINISTER ATROVENT 0.02% NEB(IPRATROPIUM BROMIDE) 0.5 MG/2.5 ML SOLUTION INHALED Q2H SHORTNESS OF BREATH/WHEEZING Ipratropium [place] 0.2 MG/ML Inhalant Solution (RxNorm): 913106 Dose: 0.5 MG ATROVENT 0.02% NEB (IPRATROPIUM BROMIDE) NDC: 90743847533 RELION ALBUTEROL(ALBUTEROL SULF) 8 GM INHALER ORAL Q2S SHORTNESS OF BREATH/ WHEEZING RELION ALBUTEROL (ALBUTEROL SULF) NDC: 20084259170 Dose: 2 INH BENZTROPINE MESYLATE(BENZTROPINE MESYLATE) 0.5 MG TAB ORAL TWICE A DAY benztropine mesylate 0.5 MG Oral Tablet (RxNorm): 734454 Dose: 0.5 MG BENZTROPINE MESYLATE (BENZTROPINE MESYLATE) NDC: 36695910034 Flexeril(CYCLOBENZAPRINE HCL) 10 MG TAB ORAL 3 TIMES A DAY Cyclobenzaprine hydrochloride 10 MG Oral Tablet (RxNorm): 077000 Dose: 10 MG Flexeril (CYCLOBENZAPRINE HCL) NDC: 45432560911 DEPAKOTE ER(DIVALPROEX SODIUM) 500 MG TAB.ER.24H ORAL AT BEDTIME 24 HR Divalproex Sodium 500 MG Extended Release Oral Tablet [Depakote] (RxNorm): 3638872 Dose: 1500 MG DEPAKOTE ER (DIVALPROEX SODIUM) NDC: 42482558037 COLACE(DOCUSATE SODIUM) 100 MG CAPSULE ORAL AT BEDTIME Docusate Sodium 100 MG Oral Capsule (RxNorm): 2526146 Dose: 100 MG COLACE (DOCUSATE SODIUM) NDC: 42967509309 Gabapentin(GABAPENTIN) 400 MG CAP ORAL 3 TIMES A DAY gabapentin 400 MG Oral Capsule [Neurontin] (RxNorm): 555380 Dose: 400 MG Gabapentin (GABAPENTIN) NDC: 20679600034 VISTARIL(HydrOXYzine PAMOATE) 25 MG CAPSULE ORAL 3 TIMES A DAY PRN Hydroxyzine Pamoate 25 MG Oral Capsule [Vistaril] (RxNorm): 885572 Dose: 25 MG VISTARIL (HydrOXYzine PAMOATE) NDC: 73793923081 NOVOLOG FLEXPEN(INSULIN ASPART) 300 UNIT/3 ML INJECTION SUBCUTANEOUSLY 3 TIMES DAILY WITH MEALS 3 ML Insulin, Aspart, Human 100 UNT/ML Prefilled Syringe [NovoLog] (RxNorm): 092872 Dose: 50 UNITS NOVOLOG FLEXPEN (INSULIN ASPART) NDC: 06927273360 LEVEMIR FLEXTOUCH(INSULIN DETEMIR) 100 UNIT/1 ML INSULN.PEN SUBCUTANEOUSLY AT BEDTIME 3 ML insulin detemir 100 UNT/ML Prefilled Syringe [Levemir] ( RxNorm): 257968 Dose: 70 UNITS LEVEMIR FLEXTOUCH (INSULIN DETEMIR) NDC: 32225617450 ATROVENT HFA INH(IPRATROPIUM BROMIDE) 12.9 GM INHALER INHALED EVERY 2 HRS WHILE AWAKE SHORTNESS OF BREATH/WHEEZING 200 ACTUAT Ipratropium [place] 0.017 MG/ACTUAT Metered Dose Inhaler [Atrovent] (RxNorm): 775206 Dose: 2 PUFF ATROVENT HFA INH (IPRATROPIUM BROMIDE) NDC: 04197176586 LORazepam(LORazepam) 1 MG TABLET ORAL 3 TIMES A DAY Lorazepam 1 MG Oral Tablet (RxNorm): 774102 Dose: 1 MG LORazepam (LORazepam) NDC: 90784715537 MYCOSTATIN CREAM(NYSTATIN) 15 GM CREAM..G. TOPICALLY TWICE A DAY ITCHING Nystatin 253592 UNT/ML Topical Cream (RxNorm): 992830 Dose: 1 APPL MYCOSTATIN CREAM (NYSTATIN) NDC: 00555484610 SEROQUEL XR(QUEtiapine FUMARATE) 300 MG TAB ORAL DAILY@1900 24 HR quetiapine 300 MG Extended Release Oral Tablet [Seroquel] (RxNorm): 678222 Dose: 600 MG SEROQUEL XR (QUEtiapine FUMARATE) NDC: 00692329366 TRAMADOL HCL(TraMADol HCL) 50 MG TABLET ORAL 3 TIMES A DAY tramadol hydrochloride 50 MG Oral Tablet (RxNorm): 179932 Dose: 50 MG TRAMADOL HCL (TraMADol HCL) NDC: 02506435689 Pristiq(DESVENLAFAXINE SUCCINATE) 100 MG TAB ORAL EVERY MORNING 24 HR Desvenlafaxine 100 MG Extended Release Oral Tablet [Pristiq] (RxNorm): 837745 Dose: 100 MG Pristiq (DESVENLAFAXINE SUCCINATE) NDC: 59413821566 Haloperidol(HALOPERIDOL) 10 MG TAB ORAL TWICE A DAY Rx Instructions: Haloperidol 10 MG Oral Tablet (RxNorm): 376546 Dose: 10 MG HOme med Haloperidol (HALOPERIDOL) NDC: 59048688385 OMNICEF(CEFDINIR) 300 MG CAP ORAL TWICE A DAY cefdinir 300 MG Oral Capsule (RxNorm): 951979 Dose: 300 MG OMNICEF (CEFDINIR) NDC: 68158871719 SYNTHROID(LEVOTHYROXINE SODIUM) 0.05 MG TABLET ORAL DAILY@07 Levothyroxine Sodium 0.05 MG Oral Tablet [Synthroid] (RxNorm): 308317 Dose: 0.05 MG SYNTHROID (LEVOTHYROXINE SODIUM) NDC: 05646658506 OXYCODONE HCL/ACETAMINOPHEN 5-325(OxyCODONE HCL/ACETAMINOPHEN) 1 EACH TABLET ORAL Q4H MODERATE TO SEVERE PAIN Acetaminophen 325 MG / Oxycodone Hydrochloride 5 MG Oral Tablet (RxNorm): 2277639 Dose: 1 TAB OXYCODONE HCL/ACETAMINOPHEN 5-325 (OxyCODONE HCL/ACETAMINOPHEN) NDC: 56473693873 Toradol(KETOROLAC TROMETHAMINE) 10 MG TAB ORAL EVERY 6 HOURS PAIN Ketorolac Tromethamine 10 MG Oral Tablet (RxNorm): 779769 Dose: 1 TAB Toradol (KETOROLAC TROMETHAMINE) NDC: 16753986792 Norflex(ORPHENADRINE CITRATE) 100 MG TAB ORAL AT BEDTIME 12 HR Orphenadrine Citrate 100 MG Extended Release Oral Tablet (RxNorm): 499371 Dose: 100 MG Norflex (ORPHENADRINE CITRATE) NDC: 99114844903 ATIVAN(LORazepam) 2 MG TABLET ORAL TWICE A DAY Lorazepam 2 MG Oral Tablet [Ativan] (RxNorm): 862526 Dose: 2 MG ATIVAN (LORazepam) NDC: 32637975857 LORazepam(LORazepam) 1 MG TABLET ORAL NOON Lorazepam 1 MG Oral Tablet ( RxNorm): 101331 Dose: 1 MG LORazepam (LORazepam) NDC: 80102872302 DEPAKOTE ER(DIVALPROEX SODIUM) 500 MG TAB.ER.24H ORAL AT BEDTIME 24 HR Divalproex Sodium 500 MG Extended Release Oral Tablet [Depakote] (RxNorm): 1879658 Dose: 1000 MG DEPAKOTE ER (DIVALPROEX SODIUM) NDC: 23102280652 GABAPENTIN(GABAPENTIN) 400 MG CAPSULE ORAL 3 TIMES A DAY gabapentin 400 MG Oral Capsule (RxNorm): 903935 Dose: 400 MG GABAPENTIN (GABAPENTIN) NDC: 16951563337 WELLBUTRIN XL(BuPROPion HCL) 150 MG TAB.ER.24H ORAL DAILY 24 HR Bupropion Hydrochloride 150 MG Extended Release Oral Tablet [Wellbutrin] (RxNorm ): 490956 Dose: 150 MG WELLBUTRIN XL (BuPROPion HCL) NDC: 94602410315 SEROQUEL XR(QUEtiapine FUMARATE) 300 MG TAB ORAL DAILY 24 HR quetiapine 300 MG Extended Release Oral Tablet [Seroquel] (RxNorm): 128465 Dose: 300 MG SEROQUEL XR (QUEtiapine FUMARATE) NDC: 80538811073 AMBIEN(ZOLPIDEM TARTRATE) 10 MG TABLET ORAL AT BEDTIME Zolpidem tartrate 10 MG Oral Tablet [Ambien] (RxNorm): 713338 Dose: 10 MG AMBIEN (ZOLPIDEM TARTRATE) NDC: 59028005828 VISTARIL(HydrOXYzine PAMOATE) 25 MG CAPSULE ORAL 3 TIMES A DAY Hydroxyzine Pamoate 25 MG Oral Capsule [Vistaril] (RxNorm): 685559 Dose: 25 MG VISTARIL (HydrOXYzine PAMOATE) NDC: 67870355453 Coumadin(WARFARIN SOD) 1 MG TAB ORAL NA Rx Instructions: Warfarin Sodium 1 MG Oral Tablet [Coumadin] (RxNorm): 650749 PT CLAIMS TO BE TAKING THIS MED, BUT IT HAS NOT BEEN FILLED BY PHARMACY AND SHE HAS NO PCP TO CHECK INRS NOT SURE IF THIS IS VALID, Coumadin (WARFARIN SOD) NDC: 45165049668 SHE GOES TO [facility] Inpatient/Ordered Medications - Medications administered during hospital visit Visit/Account #[id number] (March 18, 2015 5:48pm - April 04, 2015 6:50pm ) Medication Route Sig/Schedule Precondition/Indication Comments/ Instructions Codes IV Medication INTRAVEN NOW (Rate: 130 MLS/HR Duration: 4 HR) Additives: Additives: Potassium Chloride 2 MEQ/ML Injectable Solution (RxNorm): 153808 KCL INJ(POTASSIUM CHLORIDE) 40 MEQ/20 ML INJECTION KCL INJ (POTASSIUM CHLORIDE) NDC: 57930984175 Dose: 40 MEQ Carriers: Carriers: Sodium Chloride 0.154 MEQ/ML Injectable Solution (RxNorm): 256724 SODIUM CHLORIDE 500 ML INJECTION Dose: 500 ML (SODIUM CHLORIDE) NDC: 16307460728 IV Medication INTRAVEN NOW (Rate: 200 MLS/HR Duration: 1 HR) Label Comments: Carriers: REFRIGERATE Carriers: Vancomycin 5 MG/ML Injectable Solution (RxNorm): 805867 VANCOCIN 1 GM/200 ML PM(VANCOMYCIN/DEXTROSE,ISO-OSM) 1 GM/200 ML INJECTION VANCOCIN 1 GM/200 ML PM (VANCOMYCIN/DEXTROSE,ISO-OSM) NDC: 14611027097 Dose: 200 ML IV Medication INTRAVEN NOW (Rate: 100 MLS/HR Duration: 30 MIN) Label Comments: Additives: DO NOT REFRIGERATE Additives: ACTIVATE VIAL PRIOR TO ADMINISTRATION ertapenem 20 MG/ML Injectable Solution [Invanz] (RxNorm): 940327 Expires 24 HRS after activation INVanz INJ(ERTAPENEM) 1 GM INJECTION INVanz INJ (ERTAPENEM) NDC: 15140950784 Dose: 1 GM Carriers: Carriers: Sodium Chloride 0.154 MEQ/ML Injectable Solution (RxNorm): 955766 SODIUM CHLORIDE 50 ML INJECTION Dose: 50 ML (SODIUM CHLORIDE) NDC: 13380282625 TYLENOL(ACETAMINOPHEN) 500 MG TAB ORAL .STK-MED Label Comments: Acetaminophen 500 MG Oral Tablet [Mapap] (RxNorm): 888863 Dose: 1000 MG DO NOT EXCEED 4000 MG PER 24 HR TYLENOL (ACETAMINOPHEN) NDC: 98683785147 IV Medication INTRAVEN .Q8H (Rate: 125 MLS/HR Duration: 8 HR) Carriers: Carriers: Sodium Chloride 0.154 MEQ/ML Injectable Solution (RxNorm): 276135 NORMAL SALINE(SODIUM CHLORIDE) 1000 ML INJECTION NORMAL SALINE ( SODIUM CHLORIDE) NDC: 56991422293 Dose: 1000 ML VENTOLIN HFA INH(ALBUTEROL SULF) 60 PUFF/8 GM INHALER INHALED Q2H PRN Reason : SHORTNESS OF BREATH/WHEEZING Label Comments: VENTOLIN HFA INH (ALBUTEROL SULF) NDC: 80883184305 Dose: 0.2667 GM SHAKE WELL COGENTIN(BENZTROPINE MESYLATE) 0.5 MG TAB ORAL TWICE A DAY benztropine mesylate 0.5 MG Oral Tablet (RxNorm): 962283 Dose: 0.5 MG COGENTIN (BENZTROPINE MESYLATE) NDC: 44764820937 SYMBICORT 160(BUDESONIDE/FORMOTEROL) 60 PUFF/6 GM INHALER INHALED TWICE DAILY Label Comments: SYMBICORT 160 (BUDESONIDE/FORMOTEROL) NDC: 28001434272 Dose: 0.2 GM SHAKE WELL FOR 5 SECONDS BEFORE EACH USE FLEXERIL(CYCLOBENZAPRINE HCL) 10 MG TAB ORAL 3 TIMES A DAY muscle spasm Label Comments: Cyclobenzaprine hydrochloride 10 MG Oral Tablet (RxNorm): 314505 Dose: 10 MG MAY INCREASE FALL RISK FLEXERIL (CYCLOBENZAPRINE HCL) NDC: 60910443101 PRISTIQ(DESVENLAFAXINE SUCCINATE) 100 MG TAB ORAL DAILY 24 HR Desvenlafaxine 100 MG Extended Release Oral Tablet [Pristiq] (RxNorm): 763386 Dose: 100 MG PRISTIQ (DESVENLAFAXINE SUCCINATE) NDC: 15048311691 DEPAKOTE ER(DIVALPROEX SODIUM) 500 MG TAB ORAL AT BEDTIME Label Comments: 24 HR Divalproex Sodium 500 MG Extended Release Oral Tablet [Depakote] (RxNorm ): 3366887 Dose: 1500 MG DO NOT CUT OR CRUSH. WEAR GLOVES WHEN HANDLING. DEPAKOTE ER (DIVALPROEX SODIUM) NDC: 00568125297 NEURONTIN(GABAPENTIN) 400 MG CAP ORAL 3 TIMES A DAY Label Comments: gabapentin 400 MG Oral Capsule [Neurontin] (RxNorm): 360282 Dose: 400 MG MAY INCREASE FALL RISK NEURONTIN (GABAPENTIN) NDC: 44941217882 HALDOL(HALOPERIDOL) 10 MG TAB ORAL TWICE A DAY Label Comments: Haloperidol 10 MG Oral Tablet (RxNorm): 858439 Dose: 10 MG MAY INCREASE FALL RISK HALDOL (HALOPERIDOL) NDC: 15794854110 HumaLOG(INSULIN HUM LISPRO) 300 UNIT/3 ML INJECTION SUBCUTANEOUSLY 3 TIMES DAILY WITH MEALS Label Comments: Insulin Lispro 100 UNT/ML Injectable Solution [Humalog] (RxNorm): 176250 Dose: 0.5 ML SUBST FOR NOVOLOG <rapid acting insulin> *protect from light* HumaLOG (INSULIN HUM LISPRO) NDC: 00659763140 Give IMMEDIATELY before a meal. *expires 28 days after dispense date* LEVEMIR(INSULIN DETEMIR) 1000 UNITS/10 ML INJECTION SUBCUTANEOUSLY AT BEDTIME Label Comments: insulin detemir 100 UNT/ML Injectable Solution [ Levemir] (RxNorm): 548943 Dose: 0.7 ML Do NOT refrigerate. * Syringe expires in 24 hours. LEVEMIR (INSULIN DETEMIR) NDC: 39600342815 SYNTHROID(LEVOTHYROXINE SODIUM) 0.05 MG TAB ORAL DAILY@07 Label Comments: Levothyroxine Sodium 0.05 MG Oral Tablet [Synthroid] (RxNorm): 340249 Dose: 0.05 MG 0.05 MG=50 MCG SYNTHROID (LEVOTHYROXINE SODIUM) NDC: 61761714187 MYCOSTATIN 282404 UNIT/GM CRM(NYSTATIN) 15 GM CREAM TOPICALLY TWICE A DAY PRN Reason: ITCHING Special Dose Instructions: Nystatin 543341 UNT/ML Topical Cream (RxNorm): 172515 Dose: 0 GM 1 APPLICATION MYCOSTATIN 300312 UNIT/GM CRM (NYSTATIN) NDC: 48146981649 PERCOCET 5/325(OxyCODONE/ACETAMINOPHEN) 1 TAB TAB ORAL Q4H PRN Reason: MODERATE TO SEVERE PAIN Label Comments: Acetaminophen 325 MG / Oxycodone Hydrochloride 5 MG Oral Tablet (RxNorm): 9333909 Dose: 1 TAB MAX REC DOSE ACETAMINOPHEN: 4000MG/24HRS MAY INCREASE FALL RISK PERCOCET 5/325 (OxyCODONE/ACETAMINOPHEN) NDC: 15343439876 SEROquel XR(QUEtiapine FUMARATE) 300 MG TAB ORAL DAILY@1900 Label Comments : 24 HR quetiapine 300 MG Extended Release Oral Tablet [Seroquel] (RxNorm): 710219 Dose: 600 MG DO NOT CRUSH MAY INCREASE FALL RISK SEROquel XR (QUEtiapine FUMARATE) NDC: 33807526145 DEPAKOTE ER(DIVALPROEX SODIUM) 500 MG TAB ORAL 0016 Label Comments: 24 HR Divalproex Sodium 500 MG Extended Release Oral Tablet [Depakote] (RxNorm): 2593388 Dose: 1500 MG DO NOT CUT OR CRUSH. WEAR GLOVES WHEN HANDLING. DEPAKOTE ER (DIVALPROEX SODIUM) NDC: 78051471088 IV Medication INTRAVEN Q24H (Rate: 100 MLS/HR Duration: 30 MIN) Clinical Indication: ABX non-surgical pt Label Comments: Additives: DO NOT REFRIGERATE. DO NOT RUN WITH DEXTROSE. Additives: ACTIVATE VIAL PRIOR TO ADMINISTRATION ertapenem 20 MG/ML Injectable Solution [Invanz] (RxNorm): 865540 INVanz INJ(ERTAPENEM) 1 GM INJECTION INVanz INJ (ERTAPENEM) NDC: 99977552601 Dose: 1 GM Carriers: Carriers: Sodium Chloride 0.154 MEQ/ML Injectable Solution (RxNorm): 813228 SODIUM CHLORIDE 50 ML INJECTION Dose: 50 ML (SODIUM CHLORIDE) NDC: 44114501135 LOVENOX(ENOXAPARIN) 40 MG/0.4 ML INJECTION SUBCUTANEOUSLY DAILY@07 Label Comments: 0.4 ML Enoxaparin sodium 100 MG/ML Prefilled Syringe [Lovenox] ( RxNorm): 696520 Dose: 0.4 ML INJECT SC INTO ABDOMINAL WALL ONLY. LOVENOX (ENOXAPARIN) NDC: 50993449575 IV Medication INTRAVEN NOW (Rate: 130 MLS/HR Duration: 4 HR) Additives: Additives: Potassium Chloride 2 MEQ/ML Injectable Solution (RxNorm): 276658 KCL INJ(POTASSIUM CHLORIDE) 40 MEQ/20 ML INJECTION KCL INJ (POTASSIUM CHLORIDE) NDC: 20056992202 Dose: 40 MEQ Carriers: Carriers: Sodium Chloride 0.154 MEQ/ML Injectable Solution (RxNorm): 553700 SODIUM CHLORIDE 500 ML INJECTION Dose: 500 ML (SODIUM CHLORIDE) NDC: 32199011053 K-DUR(POTASSIUM CHLORIDE) 20 MEQ TAB ORAL DAILY AT [facility] Label Comments: Potassium Chloride 20 MEQ Extended Release Oral Tablet [Klor-Con] (RxNorm): 660623 Dose: 40 MEQ TAKE WITH FOOD TO AVOID GI UPSET K-DUR (POTASSIUM CHLORIDE) NDC: 52988195801 COUMADIN(WARFARIN SOD) 2.5 MG TAB ORAL DAILY@18 Warfarin Sodium 2.5 MG Oral Tablet [Coumadin] (RxNorm): 414751 Dose: 2.5 MG COUMADIN (WARFARIN SOD) NDC: 21064748116 LEVEMIR(INSULIN DETEMIR) 1000 UNITS/10 ML INJECTION SUBCUTANEOUSLY NOW Label Comments: insulin detemir 100 UNT/ML Injectable Solution [Levemir] ( RxNorm): 159335 Dose: 0.5 ML Do NOT refrigerate. * Syringe expires in 24 hours. LEVEMIR (INSULIN DETEMIR) NDC: 38205401790 IV Medication INTRAVEN NOW (Rate: 130 MLS/HR Duration: 4 HR) Additives: Additives: Potassium Chloride 2 MEQ/ML Injectable Solution (RxNorm): 020197 KCL INJ(POTASSIUM CHLORIDE) 40 MEQ/20 ML INJECTION KCL INJ (POTASSIUM CHLORIDE) NDC: 20270674751 Dose: 40 MEQ Carriers: Carriers: Sodium Chloride 0.154 MEQ/ML Injectable Solution (RxNorm): 359385 SODIUM CHLORIDE 500 ML INJECTION Dose: 500 ML (SODIUM CHLORIDE) NDC: 61585775320 K-DUR(POTASSIUM CHLORIDE) 20 MEQ TAB ORAL NOW Label Comments: Potassium Chloride 20 MEQ Extended Release Oral Tablet [Klor-Con] (RxNorm): 036006 Dose: 40 MEQ TAKE WITH FOOD TO AVOID GI UPSET K-DUR (POTASSIUM CHLORIDE) NDC: 21275128884 LOPRESSOR(METOPROLOL TARTRATE) 25 MG TAB ORAL TWICE A DAY Label Comments: Metoprolol Tartrate 25 MG Oral Tablet (RxNorm): 641168 Dose: 25 MG MAY INCREASE FALL RISK LOPRESSOR (METOPROLOL TARTRATE) NDC: 74928980838 IV Medication INTRAVEN NOW (Rate: 25 MLS/HR Duration: 4 HR) Carriers: Carriers: 100 ML Magnesium Sulfate 40 MG/ML Injection (RxNorm): 1591379 MAGNESIUM SULFATE 4 GM/100 ML INJECTION (MAGNESIUM SULFATE) NDC: 79979187055 Dose: 100 ML LEVEMIR(INSULIN DETEMIR) 1000 UNITS/10 ML INJECTION SUBCUTANEOUSLY NOW Label Comments: insulin detemir 100 UNT/ML Injectable Solution [Levemir] ( RxNorm): 899880 Dose: 0.35 ML Do NOT refrigerate. * Syringe expires in 24 hours. LEVEMIR (INSULIN DETEMIR) NDC: 10774879782 COUMADIN(WARFARIN SOD) 5 MG TAB ORAL DAILY@18 Warfarin Sodium 5 MG Oral Tablet [Coumadin] (RxNorm): 295734 Dose: 5 MG COUMADIN (WARFARIN SOD) NDC: 93306234790 BACTRIM DS (160/800)(TRIMETHOPRIM/SULFAMETHOXAZOLE) 1 TAB TAB ORAL TWICE A DAY Label Comments: Sulfamethoxazole 800 MG / Trimethoprim 160 MG Oral Tablet (RxNorm): 067562 Dose: 1 TAB DS TAB=SMX 800 MG + TMP 160 MG BACTRIM DS (160/800) (TRIMETHOPRIM/SULFAMETHOXAZOLE) NDC: 86670028477 LASIX(FUROSEMIDE) 20 MG TAB ORAL DAILY Label Comments: Furosemide 20 MG Oral Tablet (RxNorm): 065178 Dose: 20 MG MAY INCREASE FALL RISK LASIX (FUROSEMIDE) NDC: 65727659904 HumaLOG(INSULIN HUM LISPRO) 300 UNIT/3 ML INJECTION SUBCUTANEOUSLY NOW Label Comments: Insulin Lispro 100 UNT/ML Injectable Solution [Humalog] (RxNorm ): 174487 Dose: 0.25 ML <rapid acting insulin> *protect from light* Give IMMEDIATELY before a meal. HumaLOG (INSULIN HUM LISPRO) NDC: 53047715199 *expires 28 days after dispense date* HumaLOG(INSULIN HUM LISPRO) 300 UNIT/3 ML INJECTION SUBCUTANEOUSLY 3 TIMES DAILY WITH MEALS Label Comments: Insulin Lispro 100 UNT/ML Injectable Solution [Humalog] (RxNorm): 442595 Dose: 0.3 ML SUBST FOR NOVOLOG <rapid acting insulin> *protect from light* HumaLOG (INSULIN HUM LISPRO) NDC: 22075964031 Give IMMEDIATELY before a meal. *expires 28 days after dispense date* ARISTOCORT 0.1% CRM(TRIAMCINOLONE ACET) 15 GM CREAM TOPICALLY TWICE A DAY PRN Reason: RASH Special Dose Instructions: Triamcinolone Acetonide 1 MG/ML Topical Cream (RxNorm): 1064779 Dose: 0 GM APPLY A THIN FILM TO ARISTOCORT 0.1% CRM (TRIAMCINOLONE ACET) NDC: 11628728798 HumaLOG(INSULIN HUM LISPRO) 300 UNIT/3 ML INJECTION SUBCUTANEOUSLY 3 TIMES DAILY WITH MEALS Label Comments: Insulin Lispro 100 UNT/ML Injectable Solution [Humalog] (RxNorm): 287658 Dose: 0.15 ML SUBST FOR NOVOLOG <rapid acting insulin> *protect from light* HumaLOG (INSULIN HUM LISPRO) NDC: 89672237062 Give IMMEDIATELY before a meal. *expires 28 days after dispense date* LEVEMIR(INSULIN DETEMIR) 1000 UNITS/10 ML INJECTION SUBCUTANEOUSLY AT BEDTIME Label Comments: insulin detemir 100 UNT/ML Injectable Solution [ Levemir] (RxNorm): 381658 Dose: 0.5 ML Do NOT refrigerate. * Syringe expires in 24 hours. LEVEMIR (INSULIN DETEMIR) NDC: 55889003478 Special Dose Instructions: Replace 70 units dose tonight only LEVEMIR(INSULIN DETEMIR) 1000 UNITS/10 ML INJECTION SUBCUTANEOUSLY AT BEDTIME Label Comments: insulin detemir 100 UNT/ML Injectable Solution [ Levemir] (RxNorm): 759364 Dose: 0.45 ML Do NOT refrigerate. * Syringe expires in 24 hours. LEVEMIR (INSULIN DETEMIR) NDC: 89961963142 BENADRYL(DiphenhydrAMINE HCL) 25 MG CAP ORAL Q6H PRN Reason: RASH Label Comments: Diphenhydramine Hydrochloride 25 MG Oral Capsule (RxNorm): 8918560 Dose: 25 MG MAY INCREASE FALL RISK BENADRYL (DiphenhydrAMINE HCL) NDC: 35555186965 PERCOCET 5/325(OxyCODONE/ACETAMINOPHEN) 1 TAB TAB ORAL Q4H PRN Reason: MODERATE TO SEVERE PAIN Label Comments: Acetaminophen 325 MG / Oxycodone Hydrochloride 5 MG Oral Tablet (RxNorm): 4500742 Dose: 1 TAB MAX REC DOSE ACETAMINOPHEN: 4000MG/24HRS MAY INCREASE FALL RISK PERCOCET 5/325 (OxyCODONE/ACETAMINOPHEN) NDC: 48442704794 IMITREX(SUMAtriptan SUCCINATE) 50 MG TAB ORAL DAILY HEADACHE Label Comments : Sumatriptan 50 MG Oral Tablet [Imitrex] (RxNorm): 451091 Dose: 50 MG MAY INCREASE FALL RISK IMITREX (SUMAtriptan SUCCINATE) NDC: 78477454688 Special Dose Instructions: NOT TO EXCEED 200MG/DAY LEVEMIR(INSULIN DETEMIR) 1000 UNITS/10 ML INJECTION SUBCUTANEOUSLY ONE TIME ORDER Label Comments: insulin detemir 100 UNT/ML Injectable Solution [ Levemir] (RxNorm): 018118 Dose: 0.38 ML Do NOT refrigerate. * Syringe expires in 24 hours. LEVEMIR (INSULIN DETEMIR) NDC: 76634399422 COUMADIN(WARFARIN SOD) 2.5 MG TAB ORAL 1800 Warfarin Sodium 2.5 MG Oral Tablet [Coumadin] (RxNorm): 251406 Dose: 2.5 MG COUMADIN (WARFARIN SOD) NDC: 89460639929 ZOFRAN ODT(ONDansetron HCL) 4 MG TAB ORAL Q6H PRN Reason: NAUSEA Label Comments: Ondansetron 4 MG Disintegrating Oral Tablet (RxNorm): 719703 Dose: 4 MG MAY INCREASE FALL RISK PACO ODT (ONDansetron HCL) NDC: 36951592832 Discharge Medications - Medications that patient should continue to take. Review with physician Visit/Account #[id number] (March 18, 2015 5:48pm - April 04, 2015 6:50pm ) Medication Route Sig/Schedule Precondition/Indication Comments/ Instructions Codes ATIVAN(LORazepam) 2 MG TABLET ORAL TWICE A DAY Lorazepam 2 MG Oral Tablet [Ativan] (RxNorm): 704920 Dose: 2 MG ATIVAN (LORazepam) NDC: 08486321952 LORazepam(LORazepam) 1 MG TABLET ORAL NOON Lorazepam 1 MG Oral Tablet ( RxNorm): 778450 Dose: 1 MG LORazepam (LORazepam) NDC: 37530957264 DEPAKOTE ER(DIVALPROEX SODIUM) 500 MG TAB.ER.24H ORAL AT BEDTIME 24 HR Divalproex Sodium 500 MG Extended Release Oral Tablet [Depakote] (RxNorm): 0236733 Dose: 1000 MG DEPAKOTE ER (DIVALPROEX SODIUM) NDC: 99578346792 GABAPENTIN(GABAPENTIN) 400 MG CAPSULE ORAL 3 TIMES A DAY gabapentin 400 MG Oral Capsule (RxNorm): 641424 Dose: 400 MG GABAPENTIN (GABAPENTIN) NDC: 17612202991 WELLBUTRIN XL(BuPROPion HCL) 150 MG TAB.ER.24H ORAL DAILY 24 HR Bupropion Hydrochloride 150 MG Extended Release Oral Tablet [Wellbutrin] (RxNorm ): 944146 Dose: 150 MG WELLBUTRIN XL (BuPROPion HCL) NDC: 21830545923 SEROQUEL XR(QUEtiapine FUMARATE) 300 MG TAB ORAL DAILY 24 HR quetiapine 300 MG Extended Release Oral Tablet [Seroquel] (RxNorm): 454906 Dose: 300 MG SEROQUEL XR (QUEtiapine FUMARATE) NDC: 15395162350 AMBIEN(ZOLPIDEM TARTRATE) 10 MG TABLET ORAL AT BEDTIME Zolpidem tartrate 10 MG Oral Tablet [Ambien] (RxNorm): 747874 Dose: 10 MG AMBIEN (ZOLPIDEM TARTRATE) NDC: 85498607901 VISTARIL(HydrOXYzine PAMOATE) 25 MG CAPSULE ORAL 3 TIMES A DAY Hydroxyzine Pamoate 25 MG Oral Capsule [Vistaril] (RxNorm): 461352 Dose: 25 MG VISTARIL (HydrOXYzine PAMOATE) NDC: 87342725630 LEVEMIR(INSULIN DETEMIR) 100 U/ML INJECTION SUBCUTANEOUSLY AT BEDTIME insulin detemir 100 UNT/ML Injectable Solution [Levemir] (RxNorm): 346697 Dose: 45 UNITS LEVEMIR (INSULIN DETEMIR) NDC: 97350605099 HUMALOG(INSULIN LISPRO) 100 U/ML INJECTION SUBCUTANEOUSLY 3 TIMES DAILY WITH MEALS Insulin Lispro 100 UNT/ML Injectable Solution [Humalog] (RxNorm): 106894 Dose: 15 UNIT HUMALOG (INSULIN LISPRO) NDC: 69183488540 LOPRESSOR(METOPROLOL TARTRATE) 25 MG TAB ORAL TWICE A DAY Metoprolol Tartrate 25 MG Oral Tablet (RxNorm): 888812 Dose: 25 MG LOPRESSOR (METOPROLOL TARTRATE) NDC: 98687319326 COUMADIN(WARFARIN SODIUM) 2.5 MG TAB ORAL 1800 Warfarin Sodium 2.5 MG Oral Tablet [Coumadin] (RxNorm): 642117 Dose: 2.5 MG COUMADIN (WARFARIN SODIUM) NDC: 49724200819 History Of Encounters Encounters Visit/Account #[id number] (March 18, 2015 5:48pm - April 04, 2015 6:50pm ) Account Physican Of Reason For Visit Diagnosis Start Date/Time Stop Date/ Time Status Record Visit ER LISY SAUCEDA DO DEHYDRATION; [place]; HYPERGLYCEMIA; Not Available Mar 18, 2015 5:48pm Mar 18, 2015 9:11pm Flora HU PEREZ DO DEHYDRATION; [place]; HYPERGLYCEMIA; Not Available Mar 19, 2015 9:55am Apr 04, 2015 6:50pm IN HU PEREZ DO DEHYDRATION; [place]; HYPERGLYCEMIA; Not Available Mar 19, 2015 9:55am Apr 04, 2015 6:50pm History of Procedures Procedure List No procedures recorded. Discharge Instructions Discharge Instructions Visit/Account #[id number] (March 18, 2015 5:48pm - April 04, 2015 6:50pm ) DISCHARGE INSTRUCTIONS Physician Documentation PROVIDER INSTRUCTIONS Discharge Diet ADA 1999 Emeka Discharge Activity/Weight Bearing Status as tolerated, please keep Discharge Diet ADA 2000 Emeka Discharge Activity/Weight Bearing Status as tolerated, please keep CARE MANAGEMENT/HOME HEALTH Care Management Please arrange transfer to [facility]. also contact wound clinic to see if they would like to see in follow up WOUND/INCISION/CATHETER CARE Incision/Wound Care See wound instruction print out REASON TO CALL PROVIDER Notify Physician if: Temp above 100.4 any fever temp above 100.4 any questions or concerns FOLLOW UP APPOINTMENTS Follow Up With PCP in 1 week Follow Up PT/INR: inr in 3-4 days Social History Social History No Social History Data. Immunizations Immunizations Visit/Account #[id number] (March 18, 2015 5:48pm - April 04, 2015 6:50pm ) Immunization Date Comments/Instructions Codes FLUCELVAX (18+ YRS)(INFLUENZA VACC AGES 18 (PF)) 0.5 ML INJECTION February 4:01pm FLUCELVAX (18+ YRS) (INFLUENZA VACC AGES 18 (PF)) CVX: 140 FLUCELVAX (18+ YRS) (INFLUENZA VACC AGES 18 (PF)) [facility]: [id number]
--- OUTSIDE RECORDS SUMMARY | 2016-10-20 19:23 | External Medical Summary | Continuity Of Care Document ---
:1975 Author Organization [facility] Address [address] [place] [address] Phone Care Team Providers Name Role Phone BETO MARTINS MD Primary Care Provider UNASSIGNED, ED PHYSICIAN Unavailable Unavailable FALGUNI BOJORQUEZ MD Attending Provider Results Results No results recorded. Allergies and Adverse Reactions Allergies and Adverse Reactions Patient Unit Number: [id number] Agent Type Reaction Severity Status IODINATED CONTRAST [...] Unknown Active Problem List Problem List Visit/Account #[id number] (September 21, 2014 10:40pm - September 21, 2014 11:10pm) Acute Problems: Code/Condition Comments Documented Start Date Documented Resolved Code(s) Date Hand pain ICD10: M79.643 Hand pain ICD9: 729.5 Hand pain SNOMED: 52434665 Hand pain Neck pain ICD10: M54.2 Neck pain ICD9: 723.1 Neck pain SNOMED: 04812520 Neck pain Plan of Care Plan Of Care Visit/Account #[id number] (September 21, 2014 10:40pm - September 21, 2014 11:10pm) Patient Instructions Take tylenol over the counter as directed for pain. Ice to areas of pain for 20 minutes at a time twice a day. Return if symptoms worsen. Vital Signs Vital Signs Visit/Account #[id number] (September 21, 2014 10:40pm - September 21, 2014 11:10pm) Sign First Result Last Result Code(s) Body Mass Index Body Mass Index (BMI): 49.0 kg/m2 On September 21, 2014 10:37pm 87734-9 BMI (body mass index) Body Mass Index as a Calculated Value 49.9 kg/m2 On September 21, 2014 10:37pm 11864-0 BMI (body mass index) Body Surface Area as a Calculated Value 2.07 m2 On September 21, 2014 10:37pm 3140-1 BSA (body surface area) Height (Feet/Inches) 5 [ft_us] On September 21, 2014 10:37pm Temperature in Fahrenheit Temperature (Fahrenheit): 97.4 [degF] On September 21, 2014 10:37pm Temperature (Fahrenheit): 98.0 [degF] On September 21, 2014 11:09pm 8310-5 Body Temperature Weight in Kilograms Weight (Kilograms): 115.9 kg On September 21, 2014 10:37pm 3141-9 Weight Measured 93220-7 Body weight measured in kilograms Functional Status Functional and Cognitive Status No Functional Status Data Medications Medications Patient Unit Number: [id number] Medication No medications recorded. History Of Encounters Encounters Visit/Account #[id number] (September 21, 2014 10:40pm - September 21, 2014 11:10pm) Account Status Physican Of Reason For Visit Diagnosis Start Date/Time Stop Date/Time Record Visit ER FALGUNI BOJORQUEZ MD NECK PAIN Not Available Sep 21, 2014 10:40pm Sep 11:10pm History of Procedures Procedure List No procedures recorded. Discharge Instructions Discharge Instructions Visit/Account #[id number] (September 21, 2014 10:40pm - September 21, 2014 11:10pm) DISCHARGE INSTRUCTIONS Physician Documentation Social History Social History No Social History Data. Immunizations Immunizations Patient Unit Number: [id number] Immunizations No immunizations recorded.
--- OUTSIDE RECORDS SUMMARY | 2016-10-20 19:23 | External Medical Summary | Continuity Of Care Document ---
:1975 Author Organization [facility] Address [address] [place] [address] Phone Care Team Providers Name Role Phone LAKSHMI THOMAS, BETO Caemjo Primary Care Provider UNASSIGNED, ED PHYSICIAN Unavailable Unavailable INES HARRIS MD Unavailable CAESAR TOVAR MD Attending Provider Results Lab Results Visit/Account #[id number] (October 29, 2014 11:04am - October 29, 2014 2: 40pm) Test Result Date/Time 45427-9: COMPLETE BLOOD COUNT WITH DIFF WHITE BLOOD COUNT(4.0-11.0 10E3/UL) 8.3 10E3/UL October 29, 2014 11:20am RED BLOOD COUNT(4.00-5.20 10E6/UL) 4.66 10E6/UL October 29, 2014 11:20am HEMOGLOBIN(12.0-16.0 G/DL) 12.7 G/DL October 29, 2014 11:20am HEMATOCRIT(36.0-46.0 %) 38.5 % October 29, 2014 11:20am MEAN CORPUSCULAR VOLUME(82.0-100.0 FL) 82.6 FL October 29, 2014 11:20am 24911-5: MEAN CORPUSCULAR HEMOGLOBIN(26.0-34.0 PG) 27.3 PG October 29, 2014 11:20am MEAN CORPUSCULAR HGB CONC(31.5-36.5 G/DL) 33.0 G/DL October 29, 2014 11: 20am RED CELL DISTRIBUTION WIDTH(11.5-14.5 %) 14.4 % October 29, 2014 11:20am 777-3: PLATELET COUNT(150-450 10E3/UL) 152 10E3/UL October 29, 2014 11:20am MEAN PLATELET VOLUME(8.2-12.4 FL) 10.8 FL October 29, 2014 11:20am 770-8: NEUTROPHILS % (AUTO)(40-70 %) 58 % October 29, 2014 11:20am LYMPHOCYTES % (AUTO)(15-45 %) 27 % October 29, 2014 11:20am 5905-5: MONOCYTES % (AUTO)(2-10 %) 8 % October 29, 2014 11:20am 713-8: EOSINOPHILS % (AUTO)(0-6 %) 6 % October 29, 2014 11:20am 706-2: BASOPHILS % (AUTO)(0-1 %) 1 % October 29, 2014 11:20am 88676-7: IMMATURE GRANS % (AUTO)(0-0 %) 0 % October 29, 2014 11:20am NUCLEATED RBCS (AUTO)(0-0 %) 0 % October 29, 2014 11:20am 751-8: NEUTROPHILS # (AUTO)(2.5-7.5 10E3/UL) 4.8 10E3/UL October 29, 2014 11:20am 17708-3: LYMPHOCYTES # (AUTO)(1.0-4.0 10E3/UL) 2.2 10E3/UL October 29, 2014 11:20am 742-7: MONOCYTES # (AUTO)(0.2-0.8 10E3/UL) 0.7 10E3/UL October 29, 2014 11: 20am 711-2: EOSINOPHILS # (AUTO)(0.0-0.4 10E3/UL) 0.5 10E3/UL October 29, 2014 11:20am 704-7: BASOPHILS # (AUTO)(0.0-0.2 10E3/UL) 0.1 10E3/UL October 29, 2014 11: 20am IMMATURE GRANS # (AUTO)(0.0-0.0 10E3/UL) 0.0 10E3/UL October 29, 2014 11: 20am DIFF TYPE AUTOMATED October 29, 2014 11:20am 30929-9: PROTHROMBIN TIME WITH INR PROTHROMBIN TIME(12.1-14.0 SEC) 13.3 SEC October 29, 2014 11:20am 34625-5: INR 1.00 October 29, 2014 11:20am Result Comments: INR reference interval applies to patients on anticoagulant therapy. Suggested INR therapeutic range for oral anticoagulant therapy: (Stabilized anticoagulated patients) Routine Therapy: 2.0 to 3.0 Recurrent Myocardial Infarction: 2.5 to 3.5 Mechanical Prosthetic Valves: 2.5 to 3.5 PARTIAL THROMBOPLASTIN TIME PARTIAL THROMBOPLASTIN TIME(22.2-37.4 SEC) 27.4 SEC October 29, 2014 11: 20am UA WITH SCREEN FOR CULTURE 5778-6: COLOR,URINE YELLOW October 29, 2014 12:20pm 74573-0: CLARITY,URINE SL CLOUDY October 29, 2014 12:20pm GLUCOSE, URINE(NEGATIVE MG/DL) 500 MG/DL October 29, 2014 12:20pm URINE BILIRUBIN(NEGATIVE) NEGATIVE October 29, 2014 12:20pm 76396-6: KETONES,URINE(NEGATIVE MG/DL) NEGATIVE MG/DL October 29, 2014 12: 20pm 2965-2: URINE SPECIFIC GRAVITY(1.001-1.035) 1.025 October 29, 2014 12:20pm 56495-3: URINE BLOOD(NEGATIVE) TRACE October 29, 2014 12:20pm 2756-5: URINE PH(5.0-9.0) 6.0 October 29, 2014 12:20pm URINE PROTEIN(Less than 20 MG/DL) NEGATIVE MG/DL October 29, 2014 12:20pm URINE UROBILINOGEN(0.2-1.0 MG/DL) 0.2 MG/DL October 29, 2014 12:20pm URINE NITRITE(NEGATIVE) NEGATIVE October 29, 2014 12:20pm 5799-2: LEUKOCYTE ESTERASE ,URINE(NEGATIVE) NEGATIVE October 29, 2014 12: 20pm 630-4: URINE CULTURE NOT INDICATED October 29, 2014 12:20pm URINE MICROSCOPIC REQUIRED YES October 29, 2014 12:20pm URINE WBCS(/HPF) 4-7 /HPF October 29, 2014 12:20pm 34440-7: URINE RBCS(/HPF) 0-3 /HPF October 29, 2014 12:20pm 83287-9: URINE EPITHELIAL CELLS(/HPF) 13-20 /HPF October 29, 2014 12:20pm BACTERIA,URINE(/HPF) TRACE /HPF October 29, 2014 12:20pm URINE CRYSTALS(/HPF) NONE SEEN /HPF October 29, 2014 12:20pm URINE CASTS(/LPF) NONE SEEN /LPF October 29, 2014 12:20pm URINE COMMENTS NONE October 29, 2014 12:20pm 75515-5: COMPLETE METABOLIC PROFILE 30199-6: GLUCOSE(70-110 MG/DL) 349 MG/DL October 29, 2014 11:20am BLOOD UREA NITROGEN(6-20 MG/DL) 14 MG/DL October 29, 2014 11:20am 18418-5: CREATININE(0.50-1.20 MG/DL) 0.73 MG/DL October 29, 2014 11:20am 06684-0: EST GLOMERULAR FILTRATION RATE(Greater than or equal to 60) Greater than or equal to 60 October 29, 2014 11:20am Result Comments: If the patient is of -[place] descent/extraction multiply the eGFR value by 1.212 to obtain the actual eGFR. >=60 mg/dL Normal 30-59 mg/dL Moderate Kidney Disease 15-29 mg/dL Severe Kidney Disease <15 mg/dL Kidney Failure BUN CREATININE RATIO(10.0-20.0 RATIO) 19.0 RATIO October 29, 2014 11:20am 99711-7: SODIUM(135-145 MMOL/L) 137 MMOL/L October 29, 2014 11:20am 65066-8: POTASSIUM(3.6-5.0 MMOL/L) 4.2 MMOL/L October 29, 2014 11:20am 75103-7: CHLORIDE(101-111 MMOL/L) 100 MMOL/L October 29, 2014 11:20am 8-9: CO2(21-31 MMOL/L) 25.0 MMOL/L October 29, 2014 11:20am 94978-8: ANION GAP(8-18) 16 October 29, 2014 11:20am OSMO CALCULATED(270.0-290.0) 288.2 October 29, 2014 11:20am CALCIUM(8.5-10.5 MG/DL) 9.7 MG/DL October 29, 2014 11:20am BILIRUBIN,TOTAL(0.1-1.2 MG/DL) 0.3 MG/DL October 29, 2014 11:20am ALKALINE PHOSPHATASE(42-121 IU/L) 70 IU/L October 29, 2014 11:20am ASPARTATE AMINO TRANSFERASE(10-42 IU/L) 45 IU/L October 29, 2014 11:20am ALANINE AMINOTRANSFERASE(10-60 IU/L) 29 IU/L October 29, 2014 11:20am 77946-5: TOTAL PROTEIN(6.4-8.2 G/DL) 7.6 G/DL October 29, 2014 11:20am ALBUMIN(3.5-5.5 G/DL) 3.4 G/DL October 29, 2014 11:20am 2336-6: GLOBULIN(2.4-3.6) 4.2 October 29, 2014 11:20am ALBUMIN/GLOBULIN RATIO(0.9-1.8 RATIO) 0.8 RATIO October 29, 2014 11:20am 26052-8: CARDIAC TROPONIN I 18705-4: CARDIAC TROPONIN I(0.01-0.04 NG/ML) 0.02 NG/ML October 29, 2014 11 :20am Result Comments: REFERENCE RANGES: NEGATIVE < 0.04 NG/ML POSSIBLE MYCARDIAL INVOLVEMENT >/=0.04 NG/ML INTERPRET TROPONIN I RESULT IN LIGHT OF THE TOTAL CLINICAL PRESENTATION INCLUDING CLINICAL HISTORY. ANY CONDITION RESULTING IN MYOCARDIAL INJURY CAN POTENTIALLY ELEVATE TROPONIN I LEVELS ABOVE EXPECTED NORMAL RANGES. NOTE NEW REFERENCE RANGE 3040-3: LIPASE 3040-3: LIPASE(22-51 U/L) 18 U/L October 29, 2014 11:20am SERUM HCG, QUALITATIVE 2110-5: SERUM HCG, QUALITATIVE(NEGATIVE) NEGATIVE October 29, 2014 11:20am 88184-0: ACETONE 17444-1: ACETONE(NEGATIVE MG/L) NEGATIVE MG/L October 29, 2014 11:20am Allergies and Adverse Reactions Allergies and Adverse Reactions Patient Unit Number: [id number] Agent Type Reaction Severity Status IODINATED CONTRAST [...] Unknown Active Problem List Problem List Visit/Account #[id number] (October 29, 2014 11:04am - October 29, 2014 2: 40pm) Acute Problems: Code/Condition Comments Documented Start Documented Resolved Code(s) Date Date Bipolar 1 disorder ICD10: F31.9 Bipolar I disorder ICD9: 296.7 Bipolar I disorder SNOMED: 615870589 Bipolar I disorder Plan of Care Plan Of Care Visit/Account #[id number] (October 29, 2014 11:04am - October 29, 2014 2: 40pm) Patient Instructions Follow-up with outpatient psych services as recommended by the screener. ER as needed. Vital Signs Vital Signs Visit/Account #[id number] (October 29, 2014 11:04am - October 29, 2014 2: 40pm) Sign First Result Last Result Code(s) Temperature in Fahrenheit Temperature (Fahrenheit): 97.7 [degF] On October 29, 2014 10:59am Temperature (Fahrenheit): 98.2 [degF] On October 29, 2014 2 :12pm 8310-5 Body Temperature Functional Status Functional and Cognitive Status No Functional Status Data Medications Home Medications - Medications that the patient was taking prior to arrival at the hospital Visit/Account #[id number] (October 29, 2014 11:04am - October 29, 2014 2: 40pm) Medication Route Sig/Schedule Precondition/Indication Comments/ Instructions Codes LEVEMIR FLEXTOUCH(INSULIN DETEMIR) 100 UNIT/1 ML INSULN.PEN SUBCUTANEOUSLY AT BEDTIME 3 ML insulin detemir 100 UNT/ML Prefilled Syringe [Levemir] ( RxNorm): 838815 Dose: 25 UNIT LEVEMIR FLEXTOUCH (INSULIN DETEMIR) [facility]: [id number] NOVOLOG FLEXPEN(INSULIN ASPART) 300 UNIT/3 ML INJECTION SUBCUTANEOUSLY 3 TIMES DAILY WITH MEALS 3 ML Insulin, Aspart, Human 100 UNT/ML Prefilled Syringe [NovoLog] (RxNorm): 910324 Dose: 10 UNIT NOVOLOG FLEXPEN (INSULIN ASPART) NDC: 52035968557 Inpatient/Ordered Medications - Medications administered during hospital visit Visit/Account #[id number] (October 29, 2014 11:04am - October 29, 2014 2: 40pm) Medication Route Sig/Schedule Precondition/Indication Comments/ Instructions Codes IV Medication INTRAVEN .Q1H (Rate: 1000 MLS/HR Duration: 1 HR) Rx Order Comments: Carriers: Order placed as verified: Carriers: Dose Warnings differ from order department supervisor Sodium Chloride 0.154 MEQ/ML Injectable Solution (RxNorm): 795802 Dose Warnings differ from order department supervisor NORMAL SALINE(SODIUM CHLORIDE) 1000 ML INJECTION NORMAL SALINE ( SODIUM CHLORIDE) NDC: 65660213147 Dose: 1000 ML HumuLIN-R (ER/AMBS PYX)(INSULIN HUM R) 100 UNIT/ML INJECTION INTRAVEN NOW Rx Order Comments: Regular Insulin, Human 100 UNT/ML Injectable Solution [ Novolin R] (RxNorm): 018481 Dose: 0.1 ML Order placed as verified: Dose Warnings differ from order department supervisor HumuLIN-R (ER/AMBS PYX) ( INSULIN HUM R) NDC: 52579621909 Dose Warnings differ from order department supervisor Label Comments: GIVE 30 MINUTES BEFORE A MEAL DOCUMENT SITE OF INJECTION SUBLIMAZE INJ(FentaNYL CITRATE) 100 MCG/2 ML INJECTION INTRAVEN NOW Rx Order Comments: Fentanyl 0.05 MG/ML Injectable Solution (RxNorm): 464871 Dose: 0.5 ML Order placed as verified: Dose Warnings differ from order department supervisor SUBLIMAZE INJ (FentaNYL CITRATE ) NDC: 01363876924 Dose Warnings differ from order department supervisor Label Comments: GIVE BY SLOW PUSH OVER 2-5 MIN MAY INCREASE FALL RISK History Of Encounters Encounters Visit/Account #[id number] (October 29, 2014 11:04am - October 29, 2014 2: 40pm) Account Status Physican Of Reason For Visit Diagnosis Start Date/Time Stop Date/Time Record Visit ER CAESAR TOVAR MD "DON" 780.4: DIZZINESS AND GIDDINESS ICD9 Oct 29, 2014 11:04am Oct 29, 2014 2:40pm History of Procedures Procedure List No procedures recorded. Discharge Instructions Discharge Instructions Visit/Account #[id number] (October 29, 2014 11:04am - October 29, 2014 2: 40pm) DISCHARGE INSTRUCTIONS Physician Documentation Social History Social History No Social History Data. Immunizations Immunizations Patient Unit Number: [id number] Immunizations No immunizations recorded.
--- OUTSIDE RECORDS SUMMARY | 2016-10-20 19:23 | External Medical Summary ---
:1975 Author Organization [facility] Address [address] [place] [address] Care Team Providers Name Role Phone Easton Gomez Unavailable Unavailable PROBLEMS Type Condition ICD9-CM [id number] Onset Condition SNOMED Code Code Code Dates Status Problem Osteoarthritis, M19.90 Active 119221842 unspecified osteoarthritis type, unspecified site Problem Insomnia G47.00 Active 103859698 Problem Pain in left knee M25.562 Active 883050186860307 Problem Chest pain at rest R07.9 Active 6321550 Problem Visual impairment H54.3 Active 45620819 in both eyes Problem Constipation, K59.00 Active 02945179 unspecified constipation type Problem Chronic pain G89.4 Active 552924373 syndrome Problem Bipolar disorder, F31.5 Active 460074104 current episode depressed, severe, with psychotic features Problem Borderline F60.3 Active 25689703 personality disorder Problem Rheumatoid M06.9 Active 68803529 arthritis, involving unspecified site, unspecified rheumatoid factor presence Problem S/P cervical Z98.1 Active 250354125 spinal fusion Problem Cervical spinal M48.02 Active 34669381 stenosis Problem Dysphagia R13.10 Active 14390091 Problem Cervicalgia M54.2 Active 59208327 Problem Type 2 diabetes E11.65 Active 180370557882790 mellitus with hyperglycemia Problem Hypertension I10 Active 15119854 Problem History of fall Z91.81 Active 843243873 Problem Menses, irregular N92.6 Active 66913678 Problem Lethargy R53.83 Active 601530688 Problem Nonintractable G43.009 Active 829723420 migraine, unspecified migraine type ALLERGIES Substance Reaction Event Type Date Status morphine Unknown Drug Allergy Jul, Active aspirin Unknown Drug Allergy Jul, Active penicillin anaphylaxis Drug Allergy Jul, Active codeine Unknown Drug Allergy Jul, Active Tegretol Unknown Drug Allergy Jul, Active IV dye Unknown Non Drug Allergy Jul, Active strawberries Unknown Non Drug Allergy Jul, Active green melchor, nutrasweet, peanut, Unknown Non Drug Allergy Jul, Active shell fish SOCIAL HISTORY No smoking Hx information available PLAN OF CARE Activity Details Follow Up 4 Weeks Reason:null VITAL SIGNS Temperature 98.1 degrees Fahrenheit 2016-07-20 Weight 272 lbs 2016-07-20 Height 60 in 2016-07-20 BMI 53.12 kg/m2 2016-07-20 Blood pressure systolic 141 mm Hg 2016-07-20 Blood pressure diastolic 99 mm Hg 2016-07-20 MEDICATIONS Medication Instructions Dosage Frequency Start End Duration Status Date Date ascorbic acid 500 orally once a day 1 tab(s) 24h Active mg epinephrine 0.3 mg intramuscularly Active once GlycoLax - orally daily 17gm 24h Active diphenhydramine 25 orally 3 times a 1 cap(s) 8h Active mg day esomeprazole 40 mg orally once a day 1 cap(s) 24h Active Clozaril 100 mg orally 3 times a 1 tab(s) 8h Active day Butrans 10 mcg/hr applied topically 1 PATCH Active once a week gabapentin 800 mg orally 3 times a 1 tab(s) 8h Active day clozapine 50 mg orally 3 times a 1.5 8h Active day tab(s) Humalog 100 subcutaneously TID 22 u Active units/mL with meals ipratropium per nebulizer q4hr 3ml Active bromide /albuterol prn sulfate 0.5mg/3.0mg Milk of Magnesia orally once a day 5 mL Active 24% (at bedtime) loratidine 10 mg po daily one 24h Active Spiriva HandiHaler oral inhalation 1 capsule 24h Active 18 mcg/cap DPI once daily inhaled daily (2 puffs) Trintellix 20 mg orally once a day 1 tab(s) 24h Active Percocet-5/325 325 orally qhs and q6h 1 tab(s) Active mg-5 mg prn Senna S Active cyanocobalamin intramuscularly 15 Active 1000 mcg/mL once a month Jul, 2016 Vistaril pamoate orally 4 times a 1 cap(s) 6h Active 25 mg day topiramate 100 mg orally once a day 1 cap(s) 24h Active Cipro 500 mg orally every 12 1 tab(s) 12h 7 Jul, Active hours 2016 Imitrex 6 mg/0.5 subcutaneously 6 mg 17 Oct, Active mL once q 1 hr; no 2016 more than 2 doses in 24 hr metformin 500 mg orally 2 times a 1 tab(s) 12h Active day tramadol 50 mg orally every 4 1 tab(s) 4h Active hours magnesium oxide orally tid 2 tab(s) 8h Active 400 mg Clozaril 100 mg orally qam AND 4 1 tab(s) Active tabs po qhs bisacodyl 10 mg rectally once a 1 SUPP(s) 24h Active day Zofran 4 mg orally qam routine 1 tab(s) Feb, Active 2016 bupropion 150 orally daily 1 tab 24h Active mg/12 hours acetaminophen 325 orally every 4 2 tab(s) 4h Active mg hours amitriptyline 25 orally once a day 1 tab(s) Jul, Active mg (at bedtime) 2015 Imitrex Statdose 6 subcutaneously Active mg/0.5 mL once Mobic 15 mg orally once a day 1 tab(s) 24h 17 Oct, 30 day(s) Active 2015 Senna S 50 mg-8.6 orally once a day 2 tab(s) 10 day(s) Active mg (at bedtime) promethazine 12.5 orally every 6 1 tab(s) 6h Active mg hours atorvastatin 20 mg orally daily 1 tab 24h Active Levemir 100 subcutaneously 10 u 24h Active units/mL daily levothyroxine 50 orally daily 1 tab 24h Active mcg (0.05 mg) nystatin topical applied topically 1 renea 8h Active 888347 units/g 3 times a day benztropine 1 mg orally bid 1 tab 12h Active Mobic 15 mg orally once a day 1 tab(s) 24h Active vortioxetine 10 mg orally daily 24h Active Probiotic Formula 24h Active lorazepam 1 mg orally q6h prn 1 tab(s) Active panic RESULTS No Results PROCEDURES Procedure Date Ordered Related Diagnosis Body Site Subseq Care-New Unstable July 20, 2016 IMMUNIZATIONS No Known Immunizations
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
[2016-10-21] MEDS ORDERED: ALBUTEROL/IPRATROPIUM 2.5mg-0.5mg/3ml NEB AEROSOL PRN (00:29)
[2016-10-21] MEDS ORDERED: DEXTROSE 50% SYRINGE 50ml (1 AMP) IVP PRN (00:29)
[2016-10-21] MEDS ORDERED: GLUCOSE ORAL GEL 40% 37.5gm PO PRN (00:29)
[2016-10-21] MEDS ORDERED: POLYETHYL GLYCOL 3350 17gm PACKET PO PRN (00:29)
[2016-10-21] MEDS ORDERED: ACETAMINOPHEN 325 MG TABLET PO PRN (00:29)
[2016-10-21 00:59] VITALS: BMI 53.4
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
[2016-10-21] MEDS: INSULIN ASPART 100unit/ml INJECTION SQ PRN ×2 (06:19→12:47)
[2016-10-21] MEDS ORDERED: LEVOTHYROXINE 50 MCG TABLET PO SCH (06:30)
[2016-10-21] MEDS ORDERED: PANTOPRAZOLE 40 MG TABLET PO SCH (07:30)
[2016-10-21] MEDS ORDERED: FERROUS SULFATE 324 MG TABLET PO SCH (08:00)
[2016-10-21] MEDS ORDERED: TIOTROPIUM 18mcg/cap HANDIHALER ORAL INH SCH (09:00)
[2016-10-21] MEDS ORDERED: MELOXICAM 15 MG TABLET PO SCH (09:00)
[2016-10-21] MEDS ORDERED: SUMAtriptan 6 MG/0.5 ML VIAL SQ ONE (11:58)
[2016-10-21 12:07] VITALS: TEMP 98.3
[2016-10-21] MEDS ORDERED: NITROFURANTOIN (MACROBID) 100 MG CAPSULE PO SCH (12:15)
[2016-10-21] MEDS ORDERED: TRAMADOL 50 MG TABLET PO PRN (12:39)
--- NOTE | 2016-10-21 13:44 | Discharge Instructions ---
Discharge Plan - Med Rec/Dispo Prescriptions: New Nitrofurantoin. [Macrobid] 100 mg PO BIDWM #5 cap Continue cloZAPine [Clozapine] 100 mg PO HS LORazepam [Lorazepam] 1 mg PO Q6H PRN PRN Reason: Anxiety SUMAtriptan [Imitrex] 6 mg IM BID PRN PRN Reason: Migraine Headache EPINEPHrine [Epinephrine] 0.3 mg IJ PRN PRN PRN Reason: Prn Orders Insulin Aspart [NovoLOG] 22 unit SQ TIDWM Insulin Detemir [Levemir] 10 unit SQ AMI hydrOXYzine pamoate [Vistaril] 25 mg PO Q8H PRN PRN Reason: Anxiety Tramadol [Ultram] 50 mg PO Q8H PRN PRN Reason: Pain Promethazine Tab [Phenergan Tab] 12.5 mg PO Q6H PRN PRN Reason: Nausea &/Or Vomiting Magnesium Hydroxide [Milk of Magnesia] 2,400 mg PO DAILY PRN PRN Reason: Constipation Acetaminophen [Acetaminophen ER] 650 mg PO Q4H PRN PRN Reason: Pain Topiramate 100 mg PO TID Gabapentin [Neurontin] 800 mg PO QID Nystatin 1 applic TOP BID Cranberry Fruit Extract [Cranberry] 450 mg PO BID cloZAPine [Clozapine] 50 mg PO BID Ascorbic Acid 500 mg PO BID Vortioxetine Hydrobromide [Trintellix] 20 mg PO DAILY Tiotropium Handihaler [Spiriva] 1 cap ORAL INH DAILY Polyethylene Glycol 3350 [Miralax] 17 gm PO DAILY Meloxicam 15 mg PO DAILY Loratadine [Claritin] 10 mg PO DAILY Levothyroxine Sodium 50 mcg PO ACB Ferrous Sulfate [Feosol] 325 mg PO DAILY Esomeprazole Magnesium [Nexium] 20 mg PO ACB Buprenorphine [Butrans] 1 patch TD WEEKLY Albuterol/Ipratropium [Duoneb] 1 vial AEROSOL Q4H PRN PRN Reason: Wheezing Bisacodyl Supp [Dulcolax] 10 mg RECTALLY DAILY PRN PRN Reason: Constipation diphenhydrAMINE HCl [Diphenhydramine HCl] 25 mg PO Q6H PRN PRN Reason: Itching Magnesium Oxide [Magnesium] 400 mg PO TID Benztropine Mesylate 2 mg PO BID Sennosides 17.2 mg PO HS Lactobacillus [Culturelle] 1 cap PO DAILY Discharge Instructions/Outpatient Orders: Final Provider Discharge Instructions Location: Determined By Patient - Disposition 65 To Psych Hosp/Unit
[2016-10-21] MEDS ORDERED: TOPIRAMATE 100 MG TABLET PO ONE (13:45)
[2016-10-21 13:52] VITALS: BP 120/87; PULSE 90; RESP 19; O2SAT 99
--- NOTE | 2016-10-21 14:03 | Discharge Summary ---
Discharge Information Date of admission: 10/20/16 23:56 Anticipated date of discharge: 10/21/16 Attending Physician: Ary Aponte MD Primary care physician: MD Easton Arora - Laboratory Labs: Please referred H&P, TSH 5.14 - Microbiology > 100,000 E. Coli, sens pending History of Present Illness HPI: This is a 40 y/o female with h/o depression, anxiety, PTSD and suicidal ideations/attempts who was recently admitted to [place] for treatment who presents to ER at [facility] w/ somnolence, hypoxia following a change in her medications today. Per report patient admitted to [place] yesterday for depression with she is on suicidal ideations and normally she is on10mg/hr Buprenorphine patches daily. However today her patch was removed and she was given 4mg of Suboxone along w/ 800mg Gabapentin (started today), and purportedly that was in addition to her routine meds that include Haldol, Seroquel, Gabapentin, Buprenorphine, Clozapine, promethazine prn, and Vistaril. Within 2 hours the patient was found to be somnolent, minimally responsive, with decreased respiratory drive and decreased RR and was found to be hypoxic. Patient at [facility] was given 2 doses of Narcan 20 miniutes apart and seemed to be some improvement Patient was transported by EMS to [facility] ED for further evaluation. In ER, per report patient was more alert but still "sleepy" and c/o feeling woozy. Patient had O2 sats in the 96-99% on RA and RR was 16-20. Tox screen negative, no EtOH and WBC = 7.2. Patient is a difficult stick d/t long-term damage and scar tissue to her upper extremity vasculature (purportedly h/o cutting) so only able to get enough blood for labs. Unable to obtain IV access and patient refused further attempts. Hospital Course This is a general summary of the patient's hospital course. For more details refer to the complete medical record. Hospital course: Ms. Ward was hospitalized after accidental overdose with excessive somnolence and depressed respirations with hypoxia while undergoing medication changes at [place]. She was admitted to the intensive care unit 10/20 and became progressively more responsive with resolution of hypoxia by the time she was evaluated in the emergency room following treatment with Narcan. By the morning of 10/21 the patient was alert with fluent speech and respirations were nonlabored. She was felt stable for return to [place] to continue treatment for underlying psychiatric disease and suicidal ideation. She was incidentally found to have an Escherichia coli urinary tract infection and was started on Macrobid with first dose given prior to hospitalization. She also received a single dose of Imitrex subcutaneous for a migraine headache on 10/21. All home medications were resumed at discharge and further changes will be deferred to the staff at [place]. Please see my addendum to the H&P of for details/exam. Discharge Plan - Med Rec/Dispo Prescriptions: New Nitrofurantoin. [Macrobid] 100 mg PO BIDWM #5 cap Continue cloZAPine [Clozapine] 100 mg PO HS LORazepam [Lorazepam] 1 mg PO Q6H PRN PRN Reason: Anxiety SUMAtriptan [Imitrex] 6 mg IM BID PRN PRN Reason: Migraine Headache EPINEPHrine [Epinephrine] 0.3 mg IJ PRN PRN PRN Reason: Prn Orders Insulin Aspart [NovoLOG] 22 unit SQ TIDWM Insulin Detemir [Levemir] 10 unit SQ AMI hydrOXYzine pamoate [Vistaril] 25 mg PO Q8H PRN PRN Reason: Anxiety Tramadol [Ultram] 50 mg PO Q8H PRN PRN Reason: Pain Promethazine Tab [Phenergan Tab] 12.5 mg PO Q6H PRN PRN Reason: Nausea &/Or Vomiting Magnesium Hydroxide [Milk of Magnesia] 2,400 mg PO DAILY PRN PRN Reason: Constipation Acetaminophen [Acetaminophen ER] 650 mg PO Q4H PRN PRN Reason: Pain Topiramate 100 mg PO TID Gabapentin [Neurontin] 800 mg PO QID Nystatin 1 applic TOP BID Cranberry Fruit Extract [Cranberry] 450 mg PO BID cloZAPine [Clozapine] 50 mg PO BID Ascorbic Acid 500 mg PO BID Vortioxetine Hydrobromide [Trintellix] 20 mg PO DAILY Tiotropium Handihaler [Spiriva] 1 cap ORAL INH DAILY Polyethylene Glycol 3350 [Miralax] 17 gm PO DAILY Meloxicam 15 mg PO DAILY Loratadine [Claritin] 10 mg PO DAILY Levothyroxine Sodium 50 mcg PO ACB Ferrous Sulfate [Feosol] 325 mg PO DAILY Esomeprazole Magnesium [Nexium] 20 mg PO ACB Buprenorphine [Butrans] 1 patch TD WEEKLY Albuterol/Ipratropium [Duoneb] 1 vial AEROSOL Q4H PRN PRN Reason: Wheezing Bisacodyl Supp [Dulcolax] 10 mg RECTALLY DAILY PRN PRN Reason: Constipation diphenhydrAMINE HCl [Diphenhydramine HCl] 25 mg PO Q6H PRN PRN Reason: Itching Magnesium Oxide [Magnesium] 400 mg PO TID Benztropine Mesylate 2 mg PO BID Sennosides 17.2 mg PO HS Lactobacillus [Culturelle] 1 cap PO DAILY Discharge Instructions/Outpatient Orders: Final Provider Discharge Instructions Location: Determined By Patient - Disposition 65 To Psych Hosp/Unit
[2016-10-21] MEDS ORDERED: TOPIRAMATE 100 MG TABLET PO SCH (15:00)
[2016-10-22] MEDS ORDERED: NON-FORMULARY MEDICATION 1 EACH EACH (Esomeprazole Magnesium [Nexium] 20 MG) PO SCH (06:30)
== END 2016-10-21 15:00 | DRG 918 ==
LOC: ED 19:10 → CCU 23:56
PROVIDERS: ADMIT Internal Medicine; ATTEND Internal Medicine